=== PATIENT | female | born 1955 | race African-American/Black ===

== ENCOUNTER 2017-05-16 14:48 | Inpatient (IN) | payer MEDICAID, OTHER ==
[~2017-05-16] VITALS: Ht 160 cm; Wt 134.7 kg
[~2017-05-16 14:48] MED LIST: AMLO10TA80 PO; ASPI-1159 PO; COR3 PO; FLUT1DIS3 IH; FURO-151 PO; HEPARIN 1000 UNITS/ML 10ML ONE; HYDR100T31 PO; INSLAN SQ; LIP40 PO; LOSA100T3 PO; LOSA50TA3 PO; METH4TAB17 PO; MONT10TA21 PO; Metolazone PO; PROAIR INH; TRAV2.5D EACHEYE
[2017-05-16] MEDS ORDERED: LABETALOL HCL 20MG/4ML CARPUJECT IV ONE (16:15)
[2017-05-16 16:45] LABS: PROTHROMBIN TIME 10.7 sec (9.4-11.6)
[2017-05-16] MEDS ORDERED: LABETALOL 5MG/ML SYR 20 MG/4 ML SYRINGE IV SCH ×2 (16:45→20:30)
[2017-05-16 16:47] LABS: BASOPHILS % 0.6 % (0.0-2.0); EOSINOPHILS % 1.5 % (0.0-5.0); HEMATOCRIT. 27.5 % (36.0-48.0); HEMOGLOBIN. 8.7 g/dL (12.0-16.0); LYMPHOCYTES % 16.5 % (20.0-50.0); MEAN CORPUSCULAR HEMOGLOBIN 25.5 pg (28.0-32.0); MEAN CORPUSCULAR VOLUME 80.4 fL (81.0-99.0); MEAN PLATELET VOLUME 8.9 fl (7.4-10.4); MONOCYTES % 8.4 % (2.0-8.0); PLATELET 195 x1000/uL (130-400); RED BLOOD CELL COUNT 3.42 mill/uL (4.2-5.4); RED CELL DISTRIBUTION WIDTH 18.5 % (11.6-14.6)
[2017-05-16 16:58] LABS: CARBON DIOXIDE 33 mEq/L (21-32); CHLORIDE 106 mEq/L (98-107); TROPONIN I 0.02 ng/mL (0.00-0.04)
[2017-05-16] MEDS ORDERED: DEXTROSE 50% WATER 50ML SYRINGE IV ONE ×2 (17:15)
[2017-05-16] MEDS ORDERED: DEXT 5%/0.45% NACL KCL 20MEQ/L 1,000 ML IV ONE (19:45)
[2017-05-16] MEDS ORDERED: LABETALOL HCL 20MG/4ML CARPUJECT IV PRN (20:15)
[2017-05-16] MEDS ORDERED: LABETALOL 5MG/ML SYR 20 MG/4 ML SYRINGE IV PRN (20:30)
[2017-05-16 21:30] VITALS: BP 199/77
[2017-05-16 22:26] VITALS: BP 199/77
[2017-05-16] MEDS ORDERED: MAGNESIUM/ALUMINUM HYDROXIDE/SIMETHICONE 30ML UDC PO PRN (23:30)
[2017-05-16] MEDS ORDERED: ACETAMINOPHEN 325MG TABLET PO PRN (23:30)
[2017-05-16] MEDS ORDERED: IPRATROPIUM/ALBUTEROL 0.5-3(2.5)MG/3ML NEB INH PRN (23:30)
[2017-05-16] MEDS ORDERED: ONDANSETRON HCL 4MG/2ML VIAL IV PRN (23:30)
[2017-05-16] MEDS ORDERED: DEXTROSE 50% WATER 50ML SYRINGE IV PRN (23:30)
[2017-05-17] VITALS: BP 213/83
[2017-05-17] MEDS: LOSARTAN POTASSIUM 100 MG TABLET PO SCH ×2 (00:06→09:00)
[2017-05-17] MEDS: AMLODIPINE 10MG TABLET PO SCH ×2 (00:06→09:00)
[2017-05-17] MEDS: DEXT 5%/0.45% NACL 1000ML 1,000 ML IV SCH ×2 (00:41→12:48)
[2017-05-17] MEDS: HYDRALAZINE 20MG/ML VIAL IV PRN (02:20)
[2017-05-17 04:00] VITALS: BP 152/52
[2017-05-17] MEDS: BLOOD SUGAR DIAGNOSTIC STRIP TEST SCH ×6 (04:00→21:37)
[2017-05-17 07:53] LABS: BASOPHILS % 0.8 % (0.0-2.0); EOSINOPHILS % 3.1 % (0.0-5.0); HEMATOCRIT. 23.5 % (36.0-48.0); HEMOGLOBIN. 7.5 g/dL (12.0-16.0); LYMPHOCYTES % 18.8 % (20.0-50.0); MEAN CORPUSCULAR HEMOGLOBIN 25.5 pg (28.0-32.0); MEAN CORPUSCULAR VOLUME 80.4 fL (81.0-99.0); MEAN PLATELET VOLUME 8.2 fl (7.4-10.4); MONOCYTES % 8.5 % (2.0-8.0); NEUTROPHILS % 68.8 % (40.0-76.0); PLATELET 191 x1000/uL (130-400); RED BLOOD CELL COUNT 2.93 mill/uL (4.2-5.4); RED CELL DISTRIBUTION WIDTH 18.4 % (11.6-14.6)
[2017-05-17 08:00] VITALS: BP 144/57
[2017-05-17 08:24] LABS: CREATINE KINASE 33 IU/L (26-192); CREATINE KINASE MB FRACTION < 0.5 ng/mL (0.5-3.6); HDL CHOLESTEROL 64 mg/dL (40-59); LDL CHOLESTEROL 68 mg/dL (5-100); TROPONIN I 0.03 ng/mL (0.00-0.04)
[2017-05-17] MEDS ORDERED: FUROSEMIDE 40MG TABLET PO SCH (09:00)
[2017-05-17] MEDS: MONTELUKAST SODIUM 10MG TABLET PO SCH (09:01)
[2017-05-17] MEDS: ATORVASTATIN CALCIUM 40MG TABLET PO SCH (09:01)
[2017-05-17] MEDS: CARVEDILOL 3.125 MG TABLET PO SCH ×2 (09:01→21:43)
[2017-05-17] MEDS ORDERED: DEXTROSE 50% WATER 50ML SYRINGE IV PRN (11:15)
[2017-05-17 12:00] VITALS: BP 148/62
[2017-05-17] MEDS: INSULIN LISPRO 100 UNITS/ML SUBCUT SCH ×3 (12:15→21:48)
[2017-05-17] MEDS: ENOXAPARIN 40MG/0.4ML SYR SUBCUT SCH ×2 (12:48→21:44)
[2017-05-17] MEDS: MORPHINE SULFATE 2 MG/ML CPJ (NOT FOR IM USE) IV PRN ×2 (12:50→21:52)
[2017-05-17 16:00] VITALS: BP 158/55
[2017-05-17 18:08] LABS: CREATINE KINASE MB FRACTION 0.6 ng/mL (0.5-3.6); TROPONIN I 0.03 ng/mL (0.00-0.04)
[2017-05-17 20:00] VITALS: BP 199/64
[2017-05-17] MEDS: CLONIDINE 0.1MG TABLET PO PRN (21:42)
[2017-05-18] VITALS: BP 137/52
[2017-05-18] MEDS: DEXT 5%/0.45% NACL 1000ML 1,000 ML IV SCH ×2 (02:39→15:19)
[2017-05-18 04:00] VITALS: BP 131/48
[2017-05-18] MEDS: BLOOD SUGAR DIAGNOSTIC STRIP TEST SCH ×4 (06:44→20:46)
[2017-05-18] MEDS: INSULIN LISPRO 100 UNITS/ML SUBCUT SCH ×4 (06:56→20:50)
[2017-05-18 08:00] VITALS: BP 111/46
[2017-05-18] MEDS: ATORVASTATIN CALCIUM 40MG TABLET PO SCH (09:18)
[2017-05-18] MEDS: MONTELUKAST SODIUM 10MG TABLET PO SCH (09:18)
[2017-05-18] MEDS: CARVEDILOL 3.125 MG TABLET PO SCH ×2 (09:19→20:45)
[2017-05-18] MEDS: AMLODIPINE 10MG TABLET PO SCH (09:19)
[2017-05-18] MEDS: LOSARTAN POTASSIUM 100 MG TABLET PO SCH (09:19)
[2017-05-18] MEDS: ENOXAPARIN 40MG/0.4ML SYR SUBCUT SCH ×2 (09:19→20:46)
[2017-05-18] MEDS: MORPHINE SULFATE 2 MG/ML CPJ (NOT FOR IM USE) IV PRN ×3 (09:20→21:40)
[2017-05-18 12:07] VITALS: BP 136/58
[2017-05-18 16:17] VITALS: BP 169/55
[2017-05-18 20:00] VITALS: BP 160/46
[2017-05-19] VITALS (11 sets, daily range): BP systolic 150–191; BP diastolic 37–61
[2017-05-19] MEDS: DEXT 5%/0.45% NACL 1000ML 1,000 ML IV SCH ×2 (04:39→17:13)
[2017-05-19] MEDS: MORPHINE SULFATE 2 MG/ML CPJ (NOT FOR IM USE) IV PRN ×4 (04:46→21:30)
[2017-05-19] MEDS: INSULIN LISPRO 100 UNITS/ML SUBCUT SCH ×4 (06:46→21:26)
[2017-05-19] MEDS: BLOOD SUGAR DIAGNOSTIC STRIP TEST SCH ×4 (06:47→21:17)
[2017-05-19 07:33] LABS: BASOPHILS % 0.6 % (0.0-2.0); EOSINOPHILS % 6.1 % (0.0-5.0); LYMPHOCYTES % 27.3 % (20.0-50.0); MEAN CORPUSCULAR HEMOGLOBIN 25.7 pg (28.0-32.0); MEAN CORPUSCULAR VOLUME 81.3 fL (81.0-99.0); MEAN PLATELET VOLUME 9.1 fl (7.4-10.4); MONOCYTES % 10.3 % (2.0-8.0); NEUTROPHILS % 55.7 % (40.0-76.0); PLATELET 154 x1000/uL (130-400); RED BLOOD CELL COUNT 2.51 mill/uL (4.2-5.4); RED CELL DISTRIBUTION WIDTH 18.1 % (11.6-14.6)
[2017-05-19 08:07] LABS: HEMATOCRIT. 20.4 % (36.0-48.0); HEMOGLOBIN. 6.5 g/dL (12.0-16.0)
[2017-05-19] MEDS: ENOXAPARIN 40MG/0.4ML SYR SUBCUT SCH (09:00)
[2017-05-19] MEDS: ATORVASTATIN CALCIUM 40MG TABLET PO SCH (09:20)
[2017-05-19] MEDS: AMLODIPINE 10MG TABLET PO SCH (09:20)
[2017-05-19] MEDS: LOSARTAN POTASSIUM 100 MG TABLET PO SCH (09:20)
[2017-05-19] MEDS: MONTELUKAST SODIUM 10MG TABLET PO SCH (09:20)
[2017-05-19] MEDS: CARVEDILOL 3.125 MG TABLET PO SCH (09:20)
[2017-05-19] MEDS: CLONIDINE 0.1MG TABLET PO PRN ×2 (15:22→21:35)
[2017-05-19] MEDS: DILTIAZEM HCL 60MG TABLET PO SCH (17:13)
[2017-05-20] VITALS: BP 142/49
[2017-05-20] MEDS: DILTIAZEM HCL 60MG TABLET PO SCH ×2 (00:58→05:31)
[2017-05-20] MEDS: DEXT 5%/0.45% NACL 1000ML 1,000 ML IV SCH ×2 (00:59→20:50)
[2017-05-20 04:00] VITALS: BP_SYST 142; BP_DIAS 45; BP_DIAS 49
[2017-05-20] MEDS: BLOOD SUGAR DIAGNOSTIC STRIP TEST SCH ×4 (06:13→20:45)
[2017-05-20] MEDS: INSULIN LISPRO 100 UNITS/ML SUBCUT SCH ×4 (06:29→20:59)
[2017-05-20] MEDS: MORPHINE SULFATE 2 MG/ML CPJ (NOT FOR IM USE) IV PRN ×3 (06:31→19:41)
[2017-05-20 08:00] VITALS: BP 188/53
[2017-05-20] MEDS: MONTELUKAST SODIUM 10MG TABLET PO SCH (08:28)
[2017-05-20] MEDS: ATORVASTATIN CALCIUM 40MG TABLET PO SCH (08:28)
[2017-05-20] MEDS: LOSARTAN POTASSIUM 100 MG TABLET PO SCH (08:28)
[2017-05-20] MEDS: AMLODIPINE 10MG TABLET PO SCH (08:29)
[2017-05-20 09:16] LABS: BASOPHILS % 1.4 % (0.0-2.0); EOSINOPHILS % 5.1 % (0.0-5.0); HEMATOCRIT. 24.8 % (36.0-48.0); HEMOGLOBIN. 7.9 g/dL (12.0-16.0); LYMPHOCYTES % 24.2 % (20.0-50.0); MEAN CORPUSCULAR HEMOGLOBIN 26.3 pg (28.0-32.0); MEAN CORPUSCULAR VOLUME 83.2 fL (81.0-99.0); MEAN PLATELET VOLUME 9.2 fl (7.4-10.4); MONOCYTES % 8.1 % (2.0-8.0); NEUTROPHILS % 61.2 % (40.0-76.0); PLATELET 158 x1000/uL (130-400); RED BLOOD CELL COUNT 2.98 mill/uL (4.2-5.4); RED CELL DISTRIBUTION WIDTH 17.2 % (11.6-14.6)
[2017-05-20] MEDS: DILTIAZEM HCL 240MG ER (24HR) PO SCH ×2 (11:34→20:50)
[2017-05-20] MEDS: CLONIDINE 0.1MG TABLET PO SCH ×2 (11:35→20:51)
[2017-05-20 12:00] VITALS: BP 168/54
[2017-05-20] MEDS ORDERED: LOSA100T3 PO (14:08)
[2017-05-20] MEDS ORDERED: DILT240C91 PO (14:08)
[2017-05-20] MEDS ORDERED: CLON0.1T14 PO (14:08)
[2017-05-20] MEDS ORDERED: LIP40 PO (14:08)
[2017-05-20] MEDS ORDERED: MONT10TA21 PO (14:08)
[2017-05-20 20:00] VITALS: BP 165/56
[2017-05-21] VITALS (8 sets, daily range): BP systolic 143–177; BP diastolic 50–79
[2017-05-21] MEDS: MORPHINE SULFATE 2 MG/ML CPJ (NOT FOR IM USE) IV PRN ×3 (00:11→09:43)
[2017-05-21] MEDS: BLOOD SUGAR DIAGNOSTIC STRIP TEST SCH ×4 (06:16→21:05)
[2017-05-21] MEDS: INSULIN LISPRO 100 UNITS/ML SUBCUT SCH ×4 (06:37→21:08)
[2017-05-21] MEDS: MONTELUKAST SODIUM 10MG TABLET PO SCH (09:32)
[2017-05-21] MEDS: LOSARTAN POTASSIUM 100 MG TABLET PO SCH (09:32)
[2017-05-21] MEDS: CLONIDINE 0.1MG TABLET PO SCH (09:32)
[2017-05-21] MEDS: ATORVASTATIN CALCIUM 40MG TABLET PO SCH (09:33)
[2017-05-21] MEDS: DILTIAZEM HCL 240MG ER (24HR) PO SCH ×2 (09:33→20:29)
[2017-05-21] MEDS: DEXT 5%/0.45% NACL 1000ML 1,000 ML IV SCH (09:42)
[2017-05-21] MEDS: HYDRALAZINE 20MG/ML VIAL IV PRN (13:42)
[2017-05-21] MEDS: CLONIDINE 0.1MG TABLET PO PRN (15:25)
[2017-05-21] MEDS ORDERED: CLONIDINE 0.2MG TABLET PO SCH (21:00)
[2017-05-22] VITALS: BP 143/51
[2017-05-22 04:00] VITALS: BP 145/56
[2017-05-22 05:30] VITALS: BP 145/56
[2017-05-22] MEDS: BLOOD SUGAR DIAGNOSTIC STRIP TEST SCH (06:00)
[2017-05-22] MEDS: INSULIN LISPRO 100 UNITS/ML SUBCUT SCH (06:08)
[2017-05-22 08:00] VITALS: BP 154/45
== END 2017-05-22 08:45 | disposition home health service (06) | DRG 194 ==
LOC: ER 14:48 → 5WST 18:52 → ENRESERV 19:02 → 5WST 22:38
PROVIDERS: ADMIT Internal Medicine; ATTEND Internal Medicine
PROC: 05H433Z Insertion of Infusion Device into Left Innominate Vein, Percutaneous Approach (ICD-10-PCS; 2017-05-17)
PROC: B54NZZA Ultrasonography of Left Upper Extremity Veins, Guidance (ICD-10-PCS; 2017-05-17)
PROC: 30233N1 Transfusion of Nonautologous Red Blood Cells into Peripheral Vein, Percutaneous Approach (ICD-10-PCS; principal; 2017-05-19)
DX: I13.0 Hypertensive heart and chronic kidney disease with heart failure and stage 1 through stage 4 chronic kidney disease, or unspecified chronic kidney disease (principal); E43 Unspecified severe protein-calorie malnutrition; G93.41 Metabolic encephalopathy; E11.22 Type 2 diabetes mellitus with diabetic chronic kidney disease; I27.2 Other secondary pulmonary hypertension; Z68.43 Body mass index [BMI] 50.0-59.9, adult; E11.40 Type 2 diabetes mellitus with diabetic neuropathy, unspecified; I48.91 Unspecified atrial fibrillation; E11.649 Type 2 diabetes mellitus with hypoglycemia without coma; E66.01 Morbid (severe) obesity due to excess calories; I50.33 Acute on chronic diastolic (congestive) heart failure; L89.90 Pressure ulcer of unspecified site, unspecified stage; N18.3 Chronic kidney disease, stage 3 (moderate); D64.9 Anemia, unspecified; J44.9 Chronic obstructive pulmonary disease, unspecified; I89.0 Lymphedema, not elsewhere classified; I87.2 Venous insufficiency (chronic) (peripheral); G89.29 Other chronic pain; E11.319 Type 2 diabetes mellitus with unspecified diabetic retinopathy without macular edema; I25.10 Atherosclerotic heart disease of native coronary artery without angina pectoris; M13.0 Polyarthritis, unspecified; G47.33 Obstructive sleep apnea (adult) (pediatric); D50.9 Iron deficiency anemia, unspecified; Z79.4 Long term (current) use of insulin; Z90.710 Acquired absence of both cervix and uterus; Z88.0 Allergy status to penicillin; Z79.899 Other long term (current) drug therapy
CPT/HCPCS: 36415; 36569; 51702; 71010; 76937; 77001; 80048; 80053; 80061; 82533; 82550; 82553; 82962; 83735; 83880; 84443; 84484; 85025; 85610; 86850; 86900; 86920; 93005; 93306; 93970; 94664; 96374; 96375; 97167; 97530; 99285; C1725; J0360; J1644; J1650; J1815; J2270; J3490; J7050; P9016; A4315

== ENCOUNTER 2017-06-08 05:06 | Inpatient (IN) | payer OTHER, MEDICAID ==
[~2017-06-08] VITALS: Ht 157.5 cm; Wt 135.2 kg
[~2017-06-08 05:06] MED LIST changes: -AMLO10TA80 PO; +CLON0.1T14 PO; -COR3 PO; +DILT240C91 PO; -FURO-151 PO; -HEPARIN 1000 UNITS/ML 10ML ONE; -HYDR100T31 PO; -LOSA50TA3 PO; -METH4TAB17 PO; -Metolazone PO
[2017-06-08] MEDS ORDERED: METHYLPREDNISOLONE SOD SUCC 125 MG/2 ML VIAL IV STA ×2 (05:09)
[2017-06-08] MEDS ORDERED: IPRATROPIUM BROMIDE (0.02%) 0.5MG/2.5ML NEB HHN STA ×2 (05:09)
[2017-06-08] MEDS ORDERED: ALBUTEROL (0.083%) 2.5MG/3ML NEB HHN STA (05:09)
[2017-06-08] MEDS ORDERED: ASPIRIN 81MG TABLET PO ONE (05:15)
[2017-06-08] MEDS ORDERED: NITROGLYCERIN OINT 1GM/INCH UDPKT TD ONE (05:15)
[2017-06-08] MEDS ORDERED: LEVOFLOXACIN 750MG PREMIX 150 ML IV ONE (05:15)
[2017-06-08] MEDS ORDERED: MAGNESIUM 2 G PREMIX 50 ML IV ONE (05:15)
[2017-06-08] MEDS ORDERED: FUROSEMIDE 40MG/4ML VIAL IV ONE (05:15)
[2017-06-08] MEDS ORDERED: ALBUTEROL (0.083%) 2.5MG/3ML NEB HHN SCH (05:30)
[2017-06-08] MEDS ORDERED: ALBUTEROL (0.5%) 2.5MG/0.5ML NEB HHN ONE (05:32)
[2017-06-08 06:00] LABS: BASOPHILS % 0.5 % (0.0-2.0); EOSINOPHILS % 2.3 % (0.0-5.0); HEMATOCRIT. 27.2 % (36.0-48.0); HEMOGLOBIN. 8.5 g/dL (12.0-16.0); LYMPHOCYTES % 14.9 % (20.0-50.0); MEAN CORPUSCULAR HEMOGLOBIN 25.8 pg (28.0-32.0); MEAN CORPUSCULAR VOLUME 82.6 fL (81.0-99.0); MEAN PLATELET VOLUME 8.6 fl (7.4-10.4); MONOCYTES % 6.9 % (2.0-8.0); NEUTROPHILS % 75.4 % (40.0-76.0); PLATELET 197 x1000/uL (130-400); RED BLOOD CELL COUNT 3.29 mill/uL (4.2-5.4); RED CELL DISTRIBUTION WIDTH 17.7 % (11.6-14.6)
[2017-06-08] MEDS ORDERED: LIDOCAINE HCL 1% 20ML VIAL (Pyxis) INJ MC ONE (06:00)
[2017-06-08 06:07] LABS: BG BASE EXCESS 9.9 mmol/L (-2.0-2.0); BG BILEVEL POS AIRWAY PRESSURE 15/5; BG CARBOXYHEMOGLOBIN 0.5 % (0.5-1.5); BG DEOXYHEMOGLOBIN 3.4 % (0.0-5.0); BG FRACTION INSPIRED OXYGEN 50; BG METHEMOGLOBIN 0.2 % (0.0-1.5); BG OXYGEN SATURATION 96.6 % (92.0-98.5); BG OXYHEMOGLOBIN 95.9 % (94.0-97.0); BG PCO2 77.3 mmHg (35.0-45.0); BG PO2 95.5 mmHg (75.0-100.0); BG SAMPLE SITE RIGHT RADIAL; BG TOTAL HEMOGLOBIN 9.1 g/dL (12.0-18.0); BG VENT MODE MASK - BIPAP
[2017-06-08 06:15] LABS: CARBON DIOXIDE 36 mEq/L (21-32); CHLORIDE 103 mEq/L (98-107); ETHANOL BLOOD < 10 mg/dL; TROPONIN I 0.05 ng/mL (0.00-0.04)
[2017-06-08 06:18] LABS: D-DIMER 5.53 mg/L FEU (<0.50); PROTHROMBIN TIME 10.7 sec (9.4-11.6)
[2017-06-08] MEDS ORDERED: ONDANSETRON HCL 4MG/2ML VIAL IV PRN (07:15)
[2017-06-08] MEDS ORDERED: MAGNESIUM/ALUMINUM HYDROXIDE/SIMETHICONE 30ML UDC PO PRN (07:15)
[2017-06-08] MEDS ORDERED: IPRATROPIUM/ALBUTEROL 0.5-3(2.5)MG/3ML NEB INH PRN (07:15)
[2017-06-08] MEDS ORDERED: GUAIFENESIN 200MG/10ML SUGAR FREE UDC PO PRN (07:15)
[2017-06-08] MEDS ORDERED: ACETAMINOPHEN 325MG TABLET PO PRN (07:15)
[2017-06-08] MEDS ORDERED: LORAZEPAM 2MG/ML CPJ IV PRN (07:15)
[2017-06-08] MEDS ORDERED: DIPHENHYDRAMINE 50MG/ML VIAL IV PRN (07:15)
[2017-06-08 08:43] LABS: CLARITY URINE CLEAR (CLEAR); COLOR URINE YELLOW (YELLOW); GLUCOSE URINE NEGATIVE (NEGATIVE); KETONES URINE NEGATIVE (NEGATIVE); LEUKOCYTE ESTERASE URINE NEGATIVE (NEGATIVE); NITRITE URINE NEGATIVE (NEGATIVE); OCCULT BLOOD URINE NEGATIVE (NEGATIVE); PH URINE 6.5 (4.5-8.0); PROTEIN URINE 4+ (NEGATIVE); SPECIFIC GRAVITY URINE 1.015 (1.005-1.030); UROBILINOGEN URINE 0.2 E.U./dL (0.2-1.0)
[2017-06-08] MEDS ORDERED: DILTIAZEM HCL 240MG ER (24HR) PO SCH (09:00)
[2017-06-08] MEDS: ASPIRIN 81MG EC TABLET PO SCH (09:00)
[2017-06-08 09:02] LABS: *AMPHETAMINES SCREEN URINE NEGATIVE (NEGATIVE); *BARBITURATES SCREEN URINE NEGATIVE (NEGATIVE); *BENZODIAZEPINES SCREEN URINE NEGATIVE (NEGATIVE); *COCAINE SCREEN URINE NEGATIVE (NEGATIVE); CANNABINOID URINE SCREEN NEGATIVE (NEGATIVE); METHADONE URINE SCREEN NEGATIVE (NEGATIVE); OPIATES URINE SCREEN NEGATIVE (NEGATIVE); PHENCYCLIDINE URINE SCREEN NEGATIVE (NEGATIVE)
[2017-06-08] MEDS: CLONIDINE 0.1MG TABLET PO PRN (10:18)
[2017-06-08] MEDS ORDERED: LIDOCAINE HCL/PF 1% 2ML VIAL ONE ×2 (11:38→11:44)
[2017-06-08] MEDS: HYDROCODONE/ACETAMINOPHEN 5/325MG TABLET PO PRN ×3 (11:45→18:32)
[2017-06-08 14:19] LABS: BG BASE EXCESS 10.4 mmol/L (-2.0-2.0); BG CARBOXYHEMOGLOBIN 0.3 % (0.5-1.5); BG DEOXYHEMOGLOBIN 3.8 % (0.0-5.0); BG FRACTION INSPIRED OXYGEN 32; BG HCO3 ACT 36.8 mmol/L (22.0-26.0); BG METHEMOGLOBIN 0.3 % (0.0-1.5); BG OXYGEN SATURATION 96.2 % (92.0-98.5); BG OXYHEMOGLOBIN 95.6 % (94.0-97.0); BG PCO2 62.7 mmHg (35.0-45.0); BG PH 7.387 (7.350-7.450); BG PO2 83.8 mmHg (75.0-100.0); BG SAMPLE SITE RIGHT RADIAL; BG TOTAL HEMOGLOBIN 8.7 g/dL (12.0-18.0); BG VENT MODE NASAL CANNULA
[2017-06-08 16:00] VITALS: BP 125/66
[2017-06-08] MEDS ORDERED: METHYLPREDNISOLONE SOD SUCC 40 MG/ML VIAL IV SCH (17:30)
[2017-06-08 18:30] VITALS: BP 125/69
[2017-06-08] MEDS: LOSARTAN POTASSIUM 100 MG TABLET PO SCH (18:32)
[2017-06-08 20:00] VITALS: BP 106/68
[2017-06-08] MEDS: IPRATROPIUM/ALBUTEROL 0.5-3(2.5)MG/3ML NEB HHN SCH (20:39)
[2017-06-08] MEDS: BUDESONIDE 0.5MG/2ML NEB HHN SCH (20:40)
[2017-06-08] MEDS ORDERED: INFLUENZA VIRUS VACCINE 0.5ML SYR IM ONE (21:00)
[2017-06-08] MEDS: CLONIDINE 0.1MG TABLET PO SCH (21:48)
[2017-06-08] MEDS: SODIUM CHLORIDE 0.9% INJ 3ML FLUSH IVF SCH (21:50)
[2017-06-08] MEDS: MONTELUKAST SODIUM 10MG TABLET PO SCH (21:52)
[2017-06-08] MEDS: DILTIAZEM HCL 240MG ER (24HR) PO SCH (21:52)
[2017-06-08] MEDS: OMEPRAZOLE 20MG CAPSULE EXTENDED RELEASE PO SCH (21:52)
[2017-06-08] MEDS: ATORVASTATIN CALCIUM 40MG TABLET PO SCH (21:52)
[2017-06-08] MEDS: ENOXAPARIN 40MG/0.4ML SYR SUBCUT SCH (21:54)
[2017-06-08] MEDS ORDERED: MORPHINE SULFATE 4 MG/ML CPJ (NOT FOR IM USE) IV NR (23:00)
[2017-06-08] MEDS ORDERED: TEMAZEPAM 15MG CAPSULE PO PRN (23:00)
[2017-06-08] MEDS ORDERED: DEXTROSE 50% WATER 50ML SYRINGE IV PRN (23:15)
[2017-06-08] MEDS: LATANOPROST 0.005% OPHTH DROPS 2.5ML OP SCH (23:24)
[2017-06-09] VITALS: BP 178/55
[2017-06-09] MEDS: IPRATROPIUM/ALBUTEROL 0.5-3(2.5)MG/3ML NEB HHN SCH ×7 (00:30→23:50)
[2017-06-09] MEDS ORDERED: INSULIN DETEMIR UD 100 UNITS/ML SYR SUBCUT NR (01:00)
[2017-06-09] MEDS: CLONIDINE 0.1MG TABLET PO PRN ×2 (01:09→12:19)
[2017-06-09 04:00] VITALS: BP 145/59
[2017-06-09] MEDS: OMEPRAZOLE 20MG CAPSULE EXTENDED RELEASE PO SCH (06:47)
[2017-06-09] MEDS: SODIUM CHLORIDE 0.9% INJ 3ML FLUSH IVF SCH ×3 (06:52→20:26)
[2017-06-09] MEDS: BLOOD SUGAR DIAGNOSTIC STRIP TEST SCH ×4 (06:52→21:48)
[2017-06-09] MEDS ORDERED: LEVOFLOXACIN 750MG PREMIX 150 ML IV SCH (07:00)
[2017-06-09] MEDS: INSULIN LISPRO 100 UNITS/ML SUBCUT SCH ×4 (07:00→22:06)
[2017-06-09 08:00] VITALS: BP 168/56
[2017-06-09] MEDS: CLONIDINE 0.1MG TABLET PO SCH ×2 (08:35→20:24)
[2017-06-09] MEDS: ENOXAPARIN 40MG/0.4ML SYR SUBCUT SCH ×2 (08:35→20:25)
[2017-06-09] MEDS: DILTIAZEM HCL 240MG ER (24HR) PO SCH (08:35)
[2017-06-09] MEDS: PREDNISONE 20MG TABLET PO SCH (08:36)
[2017-06-09] MEDS: ASPIRIN 81MG EC TABLET PO SCH (08:36)
[2017-06-09] MEDS: LOSARTAN POTASSIUM 100 MG TABLET PO SCH (08:36)
[2017-06-09] MEDS ORDERED: FUROSEMIDE 40MG/4ML VIAL IVP SCH ×2 (09:00→17:00)
[2017-06-09] MEDS ORDERED: TRAVOPROST EACHEYE SCH (09:00)
[2017-06-09] MEDS: BUDESONIDE 0.5MG/2ML NEB HHN SCH ×2 (09:15→20:05)
[2017-06-09 12:00] VITALS: BP 172/58
[2017-06-09] MEDS: MORPHINE SULFATE 4 MG/ML CPJ (NOT FOR IM USE) IV PRN (12:19)
[2017-06-09] MEDS: ISOSORB DINIT/HYDRALAZINE HCL 20/37.5MG TABLET PO SCH ×2 (15:19→20:24)
[2017-06-09 15:56] LABS: CARBON DIOXIDE 34 mEq/L (21-32); CHLORIDE 97 mEq/L (98-107); CREATINE KINASE 66 IU/L (26-192); TROPONIN I 0.09 ng/mL (0.00-0.04)
[2017-06-09 16:00] VITALS: BP 182/60
[2017-06-09 16:11] LABS: BASOPHILS % 0.3 % (0.0-2.0); HEMATOCRIT. 22.8 % (36.0-48.0); HEMOGLOBIN. 7.1 g/dL (12.0-16.0); LYMPHOCYTES % 7.1 % (20.0-50.0); MEAN CORPUSCULAR HEMOGLOBIN 25.3 pg (28.0-32.0); MEAN CORPUSCULAR VOLUME 81.5 fL (81.0-99.0); MEAN PLATELET VOLUME 9.1 fl (7.4-10.4); MONOCYTES % 5.5 % (2.0-8.0); NEUTROPHILS % 87.1 % (40.0-76.0); PLATELET 191 x1000/uL (130-400); RED CELL DISTRIBUTION WIDTH 17.7 % (11.6-14.6)
[2017-06-09 20:00] VITALS: BP 185/62
[2017-06-09] MEDS: ATORVASTATIN CALCIUM 40MG TABLET PO SCH (20:24)
[2017-06-09] MEDS: MONTELUKAST SODIUM 10MG TABLET PO SCH (20:24)
[2017-06-09] MEDS: LATANOPROST 0.005% OPHTH DROPS 2.5ML OP SCH (20:25)
[2017-06-09] MEDS: INSULIN DETEMIR UD 100 UNITS/ML SYR SUBCUT SCH (22:04)
[2017-06-10] VITALS (10 sets, daily range): BP systolic 145–175; BP diastolic 50–85
[2017-06-10] MEDS: MORPHINE SULFATE 4 MG/ML CPJ (NOT FOR IM USE) IV PRN ×4 (00:02→20:03)
[2017-06-10] MEDS: IPRATROPIUM/ALBUTEROL 0.5-3(2.5)MG/3ML NEB HHN SCH ×5 (03:44→20:35)
[2017-06-10] MEDS ORDERED: LEVOFLOXACIN 750MG PREMIX 150 ML IV SCH (06:00)
[2017-06-10] MEDS: BLOOD SUGAR DIAGNOSTIC STRIP TEST SCH ×4 (06:25→21:32)
[2017-06-10] MEDS: CLONIDINE 0.1MG TABLET PO PRN ×2 (06:26→17:50)
[2017-06-10] MEDS: FAMOTIDINE 20MG TABLET PO SCH ×2 (06:27→16:49)
[2017-06-10] MEDS: SODIUM CHLORIDE 0.9% INJ 3ML FLUSH IVF SCH ×3 (06:27→21:40)
[2017-06-10] MEDS: ISOSORB DINIT/HYDRALAZINE HCL 20/37.5MG TABLET PO SCH ×3 (06:27→21:31)
[2017-06-10 06:48] LABS: BASOPHILS % 0.2 % (0.0-2.0); EOSINOPHILS % 0.2 % (0.0-5.0); LYMPHOCYTES % 11.2 % (20.0-50.0); MEAN CORPUSCULAR VOLUME 81.4 fL (81.0-99.0); MEAN PLATELET VOLUME 9.3 fl (7.4-10.4); NEUTROPHILS % 79.4 % (40.0-76.0); PLATELET 187 x1000/uL (130-400); RED BLOOD CELL COUNT 2.39 mill/uL (4.2-5.4); RED CELL DISTRIBUTION WIDTH 17.6 % (11.6-14.6)
[2017-06-10] MEDS: INSULIN LISPRO 100 UNITS/ML SUBCUT SCH ×4 (06:56→21:41)
[2017-06-10 07:01] LABS: HEMOGLOBIN. 6.2 g/dL (12.0-16.0)
[2017-06-10 07:02] LABS: HEMATOCRIT. 19.5 % (36.0-48.0)
[2017-06-10] MEDS ORDERED: FUROSEMIDE 40MG/4ML VIAL IVP SCH (07:45)
[2017-06-10] MEDS: ASPIRIN 81MG EC TABLET PO SCH (08:30)
[2017-06-10] MEDS: ENOXAPARIN 40MG/0.4ML SYR SUBCUT SCH ×3 (08:31→21:32)
[2017-06-10] MEDS: BUDESONIDE 0.5MG/2ML NEB HHN SCH ×2 (08:41→20:35)
[2017-06-10] MEDS: DILTIAZEM HCL 240MG ER (24HR) PO SCH (08:47)
[2017-06-10] MEDS: LOSARTAN POTASSIUM 100 MG TABLET PO SCH (08:47)
[2017-06-10] MEDS: PREDNISONE 20MG TABLET PO SCH (08:48)
[2017-06-10] MEDS: CLONIDINE 0.1MG TABLET PO SCH (08:48)
[2017-06-10] MEDS: CLONIDINE 0.2MG TABLET PO SCH ×2 (14:42→16:48)
[2017-06-10 20:14] LABS: INR 1.1; PROTHROMBIN TIME 11.2 sec (9.4-11.6)
[2017-06-10 20:23] LABS: HAPTOGLOBIN 281 mg/dL (30-200); TOTAL IRON BINDING CAPACITY 168 ug/dL (250-450)
[2017-06-10 20:28] LABS: HEMATOCRIT 24.1 % (36.0-48.0); HEMOGLOBIN 7.6 g/dL (12.0-16.0)
[2017-06-10 20:32] LABS: CARCINO EMBRYONIC ANTIGEN 0.8 ng/ml
[2017-06-10] MEDS: LATANOPROST 0.005% OPHTH DROPS 2.5ML OP SCH (21:31)
[2017-06-10] MEDS: ATORVASTATIN CALCIUM 40MG TABLET PO SCH (21:31)
[2017-06-10] MEDS: MONTELUKAST SODIUM 10MG TABLET PO SCH (21:31)
[2017-06-10] MEDS: ASCORBIC ACID 250 MG TABLET PO SCH (21:31)
[2017-06-10] MEDS: INSULIN DETEMIR UD 100 UNITS/ML SYR SUBCUT SCH (21:44)
[2017-06-11] VITALS (9 sets, daily range): BP systolic 110–189; BP diastolic 50–72
[2017-06-11] MEDS: IPRATROPIUM/ALBUTEROL 0.5-3(2.5)MG/3ML NEB HHN SCH ×4 (03:21→20:15)
[2017-06-11] MEDS: METHYLPREDNISOLONE SOD SUCC 125 MG/2 ML VIAL IV SCH ×3 (05:03→21:42)
[2017-06-11] MEDS: MORPHINE SULFATE 4 MG/ML CPJ (NOT FOR IM USE) IV PRN ×3 (05:04→17:28)
[2017-06-11] MEDS: ISOSORB DINIT/HYDRALAZINE HCL 20/37.5MG TABLET PO SCH ×3 (05:04→21:42)
[2017-06-11] MEDS: SODIUM CHLORIDE 0.9% INJ 3ML FLUSH IVF SCH ×3 (05:05→21:43)
[2017-06-11] MEDS: BLOOD SUGAR DIAGNOSTIC STRIP TEST SCH ×4 (06:47→21:43)
[2017-06-11 06:50] LABS: BASOPHILS % 0.3 % (0.0-2.0); EOSINOPHILS % 0.7 % (0.0-5.0); HEMATOCRIT. 22.2 % (36.0-48.0); HEMOGLOBIN. 7.3 g/dL (12.0-16.0); LYMPHOCYTES % 15.5 % (20.0-50.0); MEAN CORPUSCULAR HEMOGLOBIN 26.1 pg (28.0-32.0); MEAN CORPUSCULAR VOLUME 80.1 fL (81.0-99.0); MEAN PLATELET VOLUME 9.2 fl (7.4-10.4); MONOCYTES % 8.9 % (2.0-8.0); NEUTROPHILS % 74.6 % (40.0-76.0); PLATELET 182 x1000/uL (130-400); RED BLOOD CELL COUNT 2.77 mill/uL (4.2-5.4); RED CELL DISTRIBUTION WIDTH 16.6 % (11.6-14.6)
[2017-06-11] MEDS: INSULIN LISPRO 100 UNITS/ML SUBCUT SCH ×4 (06:55→22:02)
[2017-06-11] MEDS: BUDESONIDE 0.5MG/2ML NEB HHN SCH ×2 (07:39→20:16)
[2017-06-11] MEDS ORDERED: FAMOTIDINE 20MG TABLET PO SCH (09:00)
[2017-06-11] MEDS: CLONIDINE 0.2MG TABLET PO SCH ×3 (09:16→17:28)
[2017-06-11] MEDS: PANTOPRAZOLE SODIUM 40 MG/VIAL IV SCH (09:17)
[2017-06-11] MEDS: DILTIAZEM HCL 240MG ER (24HR) PO SCH (09:17)
[2017-06-11] MEDS: ENOXAPARIN 40MG/0.4ML SYR SUBCUT SCH ×2 (09:18→21:00)
[2017-06-11] MEDS: ASCORBIC ACID 250 MG TABLET PO SCH ×2 (09:18→21:41)
[2017-06-11] MEDS: MULTIVITAMINS,THER W-MINERALS TABLET PO SCH (09:18)
[2017-06-11] MEDS: ASPIRIN 81MG EC TABLET PO SCH (09:18)
[2017-06-11] MEDS: ZINC SULFATE 220 MG ( 50 ) CAPSULE PO SCH (09:18)
[2017-06-11] MEDS: INSULIN DETEMIR UD 100 UNITS/ML SYR SUBCUT SCH (10:45)
[2017-06-11] MEDS: LEVOFLOXACIN 750MG PREMIX 150 ML IV SCH (10:47)
[2017-06-11] MEDS: CLONIDINE 0.1MG TABLET PO PRN (15:58)
[2017-06-11] MEDS ORDERED: HYDRALAZINE 20MG/ML VIAL IV SCH (18:30)
[2017-06-11 20:09] LABS: HEMATOCRIT 31.2 % (36.0-48.0)
[2017-06-11] MEDS: MONTELUKAST SODIUM 10MG TABLET PO SCH (21:41)
[2017-06-11] MEDS: ATORVASTATIN CALCIUM 40MG TABLET PO SCH (21:41)
[2017-06-11] MEDS: LATANOPROST 0.005% OPHTH DROPS 2.5ML EACHEYE SCH (21:45)
[2017-06-12] VITALS (9 sets, daily range): BP systolic 146–210; BP diastolic 59–96
[2017-06-12] MEDS: IPRATROPIUM/ALBUTEROL 0.5-3(2.5)MG/3ML NEB HHN SCH ×4 (00:20→21:47)
[2017-06-12] MEDS: CLONIDINE 0.1MG TABLET PO PRN ×2 (03:35→23:40)
[2017-06-12] MEDS: METHYLPREDNISOLONE SOD SUCC 125 MG/2 ML VIAL IV SCH ×3 (05:41→22:11)
[2017-06-12] MEDS: SODIUM CHLORIDE 0.9% INJ 3ML FLUSH IVF SCH ×3 (05:41→22:11)
[2017-06-12] MEDS: MORPHINE SULFATE 4 MG/ML CPJ (NOT FOR IM USE) IV PRN ×3 (05:42→20:08)
[2017-06-12] MEDS: ISOSORB DINIT/HYDRALAZINE HCL 20/37.5MG TABLET PO SCH ×3 (05:42→22:13)
[2017-06-12] MEDS: BLOOD SUGAR DIAGNOSTIC STRIP TEST SCH ×4 (05:52→20:26)
[2017-06-12] MEDS: INSULIN LISPRO 100 UNITS/ML SUBCUT SCH ×4 (06:29→20:24)
[2017-06-12] MEDS: BUDESONIDE 0.5MG/2ML NEB HHN SCH ×2 (07:43→21:47)
[2017-06-12] MEDS: MULTIVITAMINS,THER W-MINERALS TABLET PO SCH (08:11)
[2017-06-12] MEDS: ZINC SULFATE 220 MG ( 50 ) CAPSULE PO SCH (08:11)
[2017-06-12] MEDS: DILTIAZEM HCL 240MG ER (24HR) PO SCH (08:12)
[2017-06-12] MEDS: ASPIRIN 81MG EC TABLET PO SCH (08:12)
[2017-06-12] MEDS: CLONIDINE 0.2MG TABLET PO SCH ×2 (08:12→12:22)
[2017-06-12] MEDS: ASCORBIC ACID 250 MG TABLET PO SCH ×2 (08:13→20:07)
[2017-06-12] MEDS: ENOXAPARIN 40MG/0.4ML SYR SUBCUT SCH ×2 (08:20→20:39)
[2017-06-12] MEDS: PANTOPRAZOLE SODIUM 40 MG/VIAL IV SCH (08:26)
[2017-06-12] MEDS ORDERED: NITROGLYCERIN OINT 1GM/INCH UDPKT TD SCH (08:30)
[2017-06-12] MEDS ORDERED: HYDRALAZINE 20MG/ML VIAL IV PRN (08:30)
[2017-06-12] MEDS: INSULIN DETEMIR UD 100 UNITS/ML SYR SUBCUT SCH (10:16)
[2017-06-12] MEDS ORDERED: AMLODIPINE 2.5MG TABLET PO SCH (13:00)
[2017-06-12] MEDS ORDERED: HYDRALAZINE HCL 25MG TABLET PO SCH (14:00)
[2017-06-12] MEDS: CLONIDINE 0.3MG TABLET PO SCH ×2 (14:52→22:12)
[2017-06-12] MEDS: ATORVASTATIN CALCIUM 40MG TABLET PO SCH (20:07)
[2017-06-12] MEDS: MONTELUKAST SODIUM 10MG TABLET PO SCH (20:07)
[2017-06-12] MEDS: CARVEDILOL 6.25 MG TABLET PO SCH (20:08)
[2017-06-12] MEDS: LATANOPROST 0.005% OPHTH DROPS 2.5ML EACHEYE SCH (20:25)
[2017-06-13] VITALS: BP 161/61
[2017-06-13] MEDS: IPRATROPIUM/ALBUTEROL 0.5-3(2.5)MG/3ML NEB HHN SCH ×5 (01:10→20:15)
[2017-06-13] MEDS: MORPHINE SULFATE 4 MG/ML CPJ (NOT FOR IM USE) IV PRN ×3 (02:48→16:55)
[2017-06-13 04:00] VITALS: BP 177/63
[2017-06-13] MEDS: METHYLPREDNISOLONE SOD SUCC 125 MG/2 ML VIAL IV SCH ×3 (05:33→20:41)
[2017-06-13] MEDS: SODIUM CHLORIDE 0.9% INJ 3ML FLUSH IVF SCH ×3 (05:33→20:41)
[2017-06-13] MEDS: CLONIDINE 0.3MG TABLET PO SCH ×3 (05:34→22:00)
[2017-06-13] MEDS: ISOSORB DINIT/HYDRALAZINE HCL 20/37.5MG TABLET PO SCH ×3 (05:34→22:00)
[2017-06-13] MEDS: BLOOD SUGAR DIAGNOSTIC STRIP TEST SCH ×4 (06:12→20:26)
[2017-06-13 06:16] LABS: HEMATOCRIT. 28.2 % (36.0-48.0); HEMOGLOBIN. 9.1 g/dL (12.0-16.0); MEAN CORPUSCULAR HEMOGLOBIN 25.8 pg (28.0-32.0); MEAN CORPUSCULAR VOLUME 80.3 fL (81.0-99.0); MEAN PLATELET VOLUME 9.4 fl (7.4-10.4); PLATELET 179 x1000/uL (130-400); RED BLOOD CELL COUNT 3.51 mill/uL (4.2-5.4); RED CELL DISTRIBUTION WIDTH 16.9 % (11.6-14.6)
[2017-06-13] MEDS: INSULIN LISPRO 100 UNITS/ML SUBCUT SCH ×4 (06:18→20:54)
[2017-06-13 08:00] VITALS: BP 187/66
[2017-06-13] MEDS: INSULIN DETEMIR UD 100 UNITS/ML SYR SUBCUT SCH (10:17)
[2017-06-13] MEDS: CARVEDILOL 6.25 MG TABLET PO SCH (10:21)
[2017-06-13] MEDS: ZINC SULFATE 220 MG ( 50 ) CAPSULE PO SCH (10:21)
[2017-06-13] MEDS: ASPIRIN 81MG EC TABLET PO SCH (10:21)
[2017-06-13] MEDS: DILTIAZEM HCL 240MG ER (24HR) PO SCH (10:21)
[2017-06-13] MEDS: LEVOFLOXACIN 750MG PREMIX 150 ML IV SCH (10:21)
[2017-06-13] MEDS: MULTIVITAMINS,THER W-MINERALS TABLET PO SCH (10:21)
[2017-06-13] MEDS: FAMOTIDINE 20MG/2ML VIAL IV SCH (10:21)
[2017-06-13] MEDS: ASCORBIC ACID 250 MG TABLET PO SCH ×2 (10:22→20:40)
[2017-06-13] MEDS: ENOXAPARIN 40MG/0.4ML SYR SUBCUT SCH ×2 (10:22→20:41)
[2017-06-13] MEDS ORDERED: AMLODIPINE 2.5MG TABLET PO SCH (11:00)
[2017-06-13 12:00] VITALS: BP 170/60
[2017-06-13 13:18] LABS: PLATELET ESTIMATE NORMAL
[2017-06-13] MEDS: NIFEDIPINE XL 60MG TAB PO SCH ×2 (13:50→20:40)
[2017-06-13 16:00] VITALS: BP 152/60
[2017-06-13 19:15] LABS: CLARITY URINE CLOUDY (CLEAR); COLOR URINE YELLOW (YELLOW); GLUCOSE URINE 1+ (NEGATIVE); KETONES URINE NEGATIVE (NEGATIVE); LEUKOCYTE ESTERASE URINE NEGATIVE (NEGATIVE); NITRITE URINE NEGATIVE (NEGATIVE); OCCULT BLOOD URINE NEGATIVE (NEGATIVE); PROTEIN URINE 3+ (NEGATIVE); SPECIFIC GRAVITY URINE 1.018 (1.005-1.030); UROBILINOGEN URINE 0.2 E.U./dL (0.2-1.0)
[2017-06-13 20:00] VITALS: BP 164/59
[2017-06-13] MEDS: CARVEDILOL 12.5MG TABLET PO SCH (20:39)
[2017-06-13] MEDS: ATORVASTATIN CALCIUM 40MG TABLET PO SCH (20:39)
[2017-06-13] MEDS: MONTELUKAST SODIUM 10MG TABLET PO SCH (20:40)
[2017-06-13] MEDS: LATANOPROST 0.005% OPHTH DROPS 2.5ML EACHEYE SCH (21:11)
[2017-06-14] VITALS: BP 176/61
[2017-06-14] MEDS: CLONIDINE 0.1MG TABLET PO PRN (00:27)
[2017-06-14] MEDS: MORPHINE SULFATE 4 MG/ML CPJ (NOT FOR IM USE) IV PRN ×2 (00:28→21:57)
[2017-06-14] MEDS: IPRATROPIUM/ALBUTEROL 0.5-3(2.5)MG/3ML NEB HHN SCH ×4 (01:30→21:01)
[2017-06-14 04:00] VITALS: BP 148/57
[2017-06-14] MEDS ORDERED: METHYLPREDNISOLONE SOD SUCC 125 MG/2 ML VIAL IV SCH (06:00)
[2017-06-14 06:19] LABS: HEMATOCRIT. 31.8 % (36.0-48.0); HEMOGLOBIN. 10.3 g/dL (12.0-16.0); MEAN CORPUSCULAR HEMOGLOBIN 26.1 pg (28.0-32.0); MEAN CORPUSCULAR VOLUME 80.6 fL (81.0-99.0); MEAN PLATELET VOLUME 9.9 fl (7.4-10.4); PLATELET 189 x1000/uL (130-400); RED BLOOD CELL COUNT 3.94 mill/uL (4.2-5.4); RED CELL DISTRIBUTION WIDTH 16.8 % (11.6-14.6)
[2017-06-14] MEDS: BLOOD SUGAR DIAGNOSTIC STRIP TEST SCH ×4 (06:35→21:00)
[2017-06-14] MEDS: CLONIDINE 0.3MG TABLET PO SCH ×3 (06:44→23:21)
[2017-06-14] MEDS: ISOSORB DINIT/HYDRALAZINE HCL 20/37.5MG TABLET PO SCH ×3 (06:44→23:21)
[2017-06-14] MEDS: INSULIN LISPRO 100 UNITS/ML SUBCUT SCH ×4 (06:51→22:09)
[2017-06-14] MEDS: SODIUM CHLORIDE 0.9% INJ 3ML FLUSH IVF SCH ×3 (06:56→23:21)
[2017-06-14 08:00] VITALS: BP 117/55
[2017-06-14] MEDS: NIFEDIPINE XL 60MG TAB PO SCH ×2 (09:00→21:55)
[2017-06-14] MEDS: CARVEDILOL 12.5MG TABLET PO SCH ×2 (09:00→21:55)
[2017-06-14] MEDS: DILTIAZEM HCL 240MG ER (24HR) PO SCH (09:00)
[2017-06-14] MEDS: ZINC SULFATE 220 MG ( 50 ) CAPSULE PO SCH (09:02)
[2017-06-14] MEDS: ASPIRIN 81MG EC TABLET PO SCH (09:02)
[2017-06-14] MEDS: FAMOTIDINE 20MG/2ML VIAL IV SCH (09:02)
[2017-06-14] MEDS: ASCORBIC ACID 250 MG TABLET PO SCH ×2 (09:02→21:54)
[2017-06-14] MEDS: MULTIVITAMINS,THER W-MINERALS TABLET PO SCH (09:03)
[2017-06-14] MEDS: ENOXAPARIN 40MG/0.4ML SYR SUBCUT SCH (09:03)
[2017-06-14] MEDS: INSULIN DETEMIR UD 100 UNITS/ML SYR SUBCUT SCH (10:28)
[2017-06-14 12:00] VITALS: BP 139/48
[2017-06-14 12:59] LABS: PLATELET ESTIMATE NORMAL
[2017-06-14 16:00] VITALS: BP 140/48
[2017-06-14 20:44] VITALS: BP 159/56
[2017-06-14] MEDS: MONTELUKAST SODIUM 10MG TABLET PO SCH (21:54)
[2017-06-14] MEDS: ATORVASTATIN CALCIUM 40MG TABLET PO SCH (21:55)
[2017-06-14] MEDS: ENOXAPARIN 30MG/0.3ML SYR SUBCUT SCH (21:56)
[2017-06-14] MEDS: LATANOPROST 0.005% OPHTH DROPS 2.5ML EACHEYE SCH (23:21)
[2017-06-15 00:49] VITALS: BP 144/59
[2017-06-15] MEDS: IPRATROPIUM/ALBUTEROL 0.5-3(2.5)MG/3ML NEB HHN SCH ×5 (00:56→20:15)
[2017-06-15 04:00] VITALS: BP 189/69
[2017-06-15] MEDS: INSULIN LISPRO 100 UNITS/ML SUBCUT SCH ×4 (05:38→21:28)
[2017-06-15] MEDS: BLOOD SUGAR DIAGNOSTIC STRIP TEST SCH ×4 (05:38→21:00)
[2017-06-15] MEDS: CLONIDINE 0.3MG TABLET PO SCH ×3 (05:50→21:23)
[2017-06-15] MEDS: SODIUM CHLORIDE 0.9% INJ 3ML FLUSH IVF SCH ×3 (05:52→21:24)
[2017-06-15] MEDS: METHYLPREDNISOLONE SOD SUCC 40 MG/ML VIAL IV SCH (05:52)
[2017-06-15 06:11] LABS: HEMATOCRIT. 32.6 % (36.0-48.0); HEMOGLOBIN. 10.6 g/dL (12.0-16.0); MEAN CORPUSCULAR VOLUME 79.8 fL (81.0-99.0); MEAN PLATELET VOLUME 10.2 fl (7.4-10.4); PLATELET 208 x1000/uL (130-400); RED BLOOD CELL COUNT 4.09 mill/uL (4.2-5.4)
[2017-06-15] MEDS: ISOSORB DINIT/HYDRALAZINE HCL 20/37.5MG TABLET PO SCH ×3 (07:07→21:23)
[2017-06-15] MEDS: MORPHINE SULFATE 4 MG/ML CPJ (NOT FOR IM USE) IV PRN ×2 (07:08→21:30)
[2017-06-15 08:00] VITALS: BP 182/69
[2017-06-15] MEDS: ZINC SULFATE 220 MG ( 50 ) CAPSULE PO SCH (08:49)
[2017-06-15] MEDS: FAMOTIDINE 20MG/2ML VIAL IV SCH (08:49)
[2017-06-15] MEDS: ASCORBIC ACID 250 MG TABLET PO SCH ×2 (08:49→21:23)
[2017-06-15] MEDS: ASPIRIN 81MG EC TABLET PO SCH (08:49)
[2017-06-15] MEDS: MULTIVITAMINS,THER W-MINERALS TABLET PO SCH (08:49)
[2017-06-15] MEDS: NIFEDIPINE XL 60MG TAB PO SCH ×2 (08:50→20:19)
[2017-06-15] MEDS: CARVEDILOL 12.5MG TABLET PO SCH ×2 (08:50→20:18)
[2017-06-15] MEDS: ENOXAPARIN 30MG/0.3ML SYR SUBCUT SCH ×2 (08:51→21:24)
[2017-06-15] MEDS: DILTIAZEM HCL 240MG ER (24HR) PO SCH (08:56)
[2017-06-15] MEDS: INSULIN DETEMIR UD 100 UNITS/ML SYR SUBCUT SCH (10:40)
[2017-06-15 10:46] LABS: NUCLEATED RED BLOOD CELLS 1 /100 WBC; PLATELET ESTIMATE NORMAL
[2017-06-15 12:00] VITALS: BP 129/46
[2017-06-15] MEDS: FUROSEMIDE 40MG TABLET PO SCH (14:06)
[2017-06-15 16:00] VITALS: BP 128/43
[2017-06-15 20:00] VITALS: BP 119/44
[2017-06-15] MEDS: MONTELUKAST SODIUM 10MG TABLET PO SCH (21:23)
[2017-06-15] MEDS: ATORVASTATIN CALCIUM 40MG TABLET PO SCH (21:23)
[2017-06-15] MEDS: LATANOPROST 0.005% OPHTH DROPS 2.5ML EACHEYE SCH (21:29)
[2017-06-16] VITALS (7 sets, daily range): BP systolic 118–154; BP diastolic 48–54
[2017-06-16] MEDS: METHYLPREDNISOLONE SOD SUCC 40 MG/ML VIAL IV SCH (05:43)
[2017-06-16] MEDS: CLONIDINE 0.3MG TABLET PO SCH ×3 (05:43→22:13)
[2017-06-16] MEDS: BLOOD SUGAR DIAGNOSTIC STRIP TEST SCH ×3 (05:44→21:56)
[2017-06-16] MEDS: INSULIN LISPRO 100 UNITS/ML SUBCUT SCH ×3 (05:44→17:47)
[2017-06-16] MEDS: SODIUM CHLORIDE 0.9% INJ 3ML FLUSH IVF SCH ×3 (05:44→22:14)
[2017-06-16] MEDS: ISOSORB DINIT/HYDRALAZINE HCL 20/37.5MG TABLET PO SCH ×3 (05:44→22:14)
[2017-06-16] MEDS: FAMOTIDINE 20MG/2ML VIAL IV SCH (08:25)
[2017-06-16] MEDS: MULTIVITAMINS,THER W-MINERALS TABLET PO SCH (08:26)
[2017-06-16] MEDS: NIFEDIPINE XL 60MG TAB PO SCH ×2 (08:26→22:13)
[2017-06-16] MEDS: FUROSEMIDE 40MG TABLET PO SCH (08:27)
[2017-06-16] MEDS: ZINC SULFATE 220 MG ( 50 ) CAPSULE PO SCH (08:27)
[2017-06-16] MEDS: DILTIAZEM HCL 240MG ER (24HR) PO SCH (08:27)
[2017-06-16] MEDS: ASCORBIC ACID 250 MG TABLET PO SCH ×2 (08:27→22:12)
[2017-06-16] MEDS: ASPIRIN 81MG EC TABLET PO SCH (08:27)
[2017-06-16] MEDS: ENOXAPARIN 30MG/0.3ML SYR SUBCUT SCH ×2 (08:28→22:14)
[2017-06-16] MEDS: CARVEDILOL 12.5MG TABLET PO SCH ×2 (08:28→22:14)
[2017-06-16] MEDS: MORPHINE SULFATE 4 MG/ML CPJ (NOT FOR IM USE) IV PRN ×2 (08:35→13:38)
[2017-06-16] MEDS: IPRATROPIUM/ALBUTEROL 0.5-3(2.5)MG/3ML NEB HHN SCH ×3 (08:41→22:02)
[2017-06-16] MEDS: INSULIN DETEMIR UD 100 UNITS/ML SYR SUBCUT SCH (09:41)
[2017-06-16] MEDS ORDERED: HYDROCODONE/ACETAMINOPHEN 5/325MG TABLET PO PRN (19:15)
[2017-06-16] MEDS: MONTELUKAST SODIUM 10MG TABLET PO SCH (22:13)
[2017-06-16] MEDS: ATORVASTATIN CALCIUM 40MG TABLET PO SCH (22:14)
[2017-06-16] MEDS: LATANOPROST 0.005% OPHTH DROPS 2.5ML EACHEYE SCH (22:16)
== END 2017-06-16 23:33 | disposition home or self-care (01) | DRG 133 ==
LOC: ER 05:11 → 5WST 05:23 → ENRESERV 05:50 → CANRESERV 05:50 → EDBEDREQ 08:42 → EDBEDREQSVC 08:59 → ENRESERV 15:22
PROVIDERS: ADMIT Internal Medicine; ATTEND Internal Medicine
PROC: 5A09457 Assistance with Respiratory Ventilation, 24-96 Consecutive Hours, Continuous Positive Airway Pressure (ICD-10-PCS; principal; 2017-06-08)
PROC: 30233N1 Transfusion of Nonautologous Red Blood Cells into Peripheral Vein, Percutaneous Approach (ICD-10-PCS; 2017-06-10)
DX: J96.00 Acute respiratory failure, unspecified whether with hypoxia or hypercapnia (principal); E43 Unspecified severe protein-calorie malnutrition; I50.33 Acute on chronic diastolic (congestive) heart failure; E87.2 Acidosis; R65.10 Systemic inflammatory response syndrome (SIRS) of non-infectious origin without acute organ dysfunction; N17.9 Acute kidney failure, unspecified; I13.0 Hypertensive heart and chronic kidney disease with heart failure and stage 1 through stage 4 chronic kidney disease, or unspecified chronic kidney disease; E11.22 Type 2 diabetes mellitus with diabetic chronic kidney disease; E11.649 Type 2 diabetes mellitus with hypoglycemia without coma; N18.3 Chronic kidney disease, stage 3 (moderate); E46 Unspecified protein-calorie malnutrition; E66.01 Morbid (severe) obesity due to excess calories; J44.1 Chronic obstructive pulmonary disease with (acute) exacerbation; I16.1 Hypertensive emergency; G47.33 Obstructive sleep apnea (adult) (pediatric); I89.0 Lymphedema, not elsewhere classified; D72.829 Elevated white blood cell count, unspecified; D63.8 Anemia in other chronic diseases classified elsewhere; E78.5 Hyperlipidemia, unspecified; Z99.81 Dependence on supplemental oxygen; Z80.3 Family history of malignant neoplasm of breast; Z68.43 Body mass index [BMI] 50.0-59.9, adult; Z82.49 Family history of ischemic heart disease and other diseases of the circulatory system; Z83.3 Family history of diabetes mellitus; Z74.01 Bed confinement status; Z88.0 Allergy status to penicillin; Z79.82 Long term (current) use of aspirin; Z79.4 Long term (current) use of insulin; Z79.899 Other long term (current) drug therapy; Z90.710 Acquired absence of both cervix and uterus; Z98.51 Tubal ligation status
CPT/HCPCS: 36415; 36600; 51702; 71010; 80048; 80053; 80305; 81001; 82375; 82378; 82550; 82607; 82728; 82805; 82962; 83010; 83540; 83550; 83605; 83615; 83690; 83735; 83880; 84156; 84484; 85014; 85018; 85025; 85044; 85379; 85610; 85730; 86850; 86900; 86920; 87040; 87077; 87086; 87186; 90686; 93005; 93306; 93970; 94640; 94660; 94664; 96365; 96368; 96375; 97110; 97162; 97530; 99291; C9113; G0482; J0360; J1650; J1815; J1940; J1956; J2270; J2405; J2920; J2930; J3475; J3490; J7030; J7040; J7050; J7512; J7611; J7620; J7626; P9016; A4315

== ENCOUNTER 2017-06-21 09:50 | Emergency (ER) | payer MEDICAID, OTHER ==
[~2017-06-21] VITALS: Ht 170.2 cm; Wt 160.0 kg
[2017-06-21] MEDS ORDERED: BISACODYL 10MG SUPP PR ONE (10:45)
[2017-06-21] MEDS ORDERED: MAGNESIUM CITRATE 300ML SOLUTION PO ONE (10:45)
[2017-06-21] MEDS ORDERED: TRAMADOL 50MG TABLET PO ONE (11:00)
[2017-06-21] MEDS ORDERED: NA PHOS,M-B/NA PHOS,DI-BA ENEMA 118ML PR ONE (12:45)
[2017-06-21 20:00] VITALS: BP 147/79
== END 2017-06-21 20:00 | disposition home or self-care (01) ==
LOC: ER 10:02
DX: K59.00 Constipation, unspecified (principal); I11.0 Hypertensive heart disease with heart failure; E11.9 Type 2 diabetes mellitus without complications; J44.9 Chronic obstructive pulmonary disease, unspecified; G47.33 Obstructive sleep apnea (adult) (pediatric); E66.01 Morbid (severe) obesity due to excess calories; Z68.43 Body mass index [BMI] 50.0-59.9, adult; Z79.4 Long term (current) use of insulin; Z88.0 Allergy status to penicillin; Z79.82 Long term (current) use of aspirin
CPT/HCPCS: 99284

== ENCOUNTER 2017-11-12 16:34 | Emergency (ER) | payer MEDICAID ==
[~2017-11-12] VITALS: Ht 167.6 cm; Wt 120.0 kg
[~2017-11-12 16:34] MED LIST changes: -CLON0.1T14 PO; -FLUT1DIS3 IH; +METO-293 PO; -MONT10TA21 PO; +OXYC-100 PO; +PREG50CA PO; -PROAIR INH
[2017-11-12 21:06] LABS: EOSINOPHILS % 2.7 % (0.0-5.0); HEMATOCRIT. 31.9 % (36.0-48.0); HEMOGLOBIN. 10.1 g/dL (12.0-16.0); LYMPHOCYTES % 14.5 % (20.0-50.0); MEAN CORPUSCULAR VOLUME 82.1 fL (81.0-99.0); MONOCYTES % 8.8 % (2.0-8.0); PLATELET 172 x1000/uL (130-400); RED BLOOD CELL COUNT 3.89 mill/uL (4.2-5.4); RED CELL DISTRIBUTION WIDTH 16.6 % (11.6-14.6)
[2017-11-12 21:11] LABS: PROTHROMBIN TIME 10.5 sec (9.4-11.6)
[2017-11-12 21:13] LABS: CHLORIDE 104 mEq/L (98-107)
[2017-11-12 21:19] LABS: TROPONIN I 0.05 ng/mL (0.00-0.04)
[2017-11-12] MEDS ORDERED: CLONIDINE 0.2MG TABLET PO ONE (22:00)
[2017-11-13 02:43] VITALS: BP 166/84
== END 2017-11-13 02:52 | disposition home or self-care (01) ==
LOC: ER 17:35
DX: J44.1 Chronic obstructive pulmonary disease with (acute) exacerbation (principal); J18.9 Pneumonia, unspecified organism; D72.829 Elevated white blood cell count, unspecified; N18.9 Chronic kidney disease, unspecified; E11.22 Type 2 diabetes mellitus with diabetic chronic kidney disease; I13.0 Hypertensive heart and chronic kidney disease with heart failure and stage 1 through stage 4 chronic kidney disease, or unspecified chronic kidney disease; E88.09 Other disorders of plasma-protein metabolism, not elsewhere classified; D64.9 Anemia, unspecified; I50.9 Heart failure, unspecified; I44.0 Atrioventricular block, first degree; I48.91 Unspecified atrial fibrillation; I89.0 Lymphedema, not elsewhere classified; Z79.4 Long term (current) use of insulin; Z79.82 Long term (current) use of aspirin; Z88.0 Allergy status to penicillin
CPT/HCPCS: 36415; 71045; 80053; 83880; 84484; 85025; 85610; 93005; 99285; Z7610

== ENCOUNTER 2017-12-08 07:48 | Inpatient (IN) | payer MEDICAID ==
[~2017-12-08] VITALS: Ht 152.4 cm; Wt 141.3 kg
[2017-12-08] VITALS (38 sets, daily range): BP systolic 101–226; BP diastolic 33–151
[2017-12-08] MEDS ORDERED: METHYLPREDNISOLONE SOD SUCC 125 MG/2 ML VIAL IV STA (08:18)
[2017-12-08] MEDS ORDERED: IPRATROPIUM BROMIDE (0.02%) 0.5MG/2.5ML NEB HHN STA (08:18)
[2017-12-08] MEDS ORDERED: ALBUTEROL (0.083%) 2.5MG/3ML NEB HHN STA (08:18)
[2017-12-08 08:22] LABS: BG BASE EXCESS 2.7 mmol/L (-2.0-2.0); BG CARBOXYHEMOGLOBIN 0.7 % (0.5-1.5); BG DEOXYHEMOGLOBIN 1.2 % (0.0-5.0); BG FRACTION INSPIRED OXYGEN 100; BG HCO3 ACT 30.7 mmol/L (22.0-26.0); BG METHEMOGLOBIN 0.3 % (0.0-1.5); BG OXYGEN SATURATION 98.8 % (92.0-98.5); BG OXYHEMOGLOBIN 97.8 % (94.0-97.0); BG PCO2 67.6 mmHg (35.0-45.0); BG PH 7.275 (7.350-7.450); BG SAMPLE SITE RIGHT BRACHIAL; BG TOTAL HEMOGLOBIN 10.2 g/dL (12.0-18.0); BG VENT MODE MASK - NRB
[2017-12-08] MEDS ORDERED: HYDRALAZINE 20MG/ML VIAL IV ONE (08:30)
[2017-12-08] MEDS ORDERED: MAGNESIUM 2 G PREMIX 50 ML IV ONE (08:30)
[2017-12-08] MEDS ORDERED: LEVOFLOXACIN 750MG PREMIX 150 ML IV ONE (09:00)
[2017-12-08] MEDS ORDERED: FUROSEMIDE 40MG/4ML VIAL IVP ONE (09:00)
[2017-12-08 09:16] LABS: BASOPHILS % 0.7 % (0.0-2.0); EOSINOPHILS % 0.7 % (0.0-5.0); HEMATOCRIT. 31.4 % (36.0-48.0); HEMOGLOBIN. 9.9 g/dL (12.0-16.0); LYMPHOCYTES % 8.6 % (20.0-50.0); MEAN CORPUSCULAR HEMOGLOBIN 25.5 pg (28.0-32.0); MEAN CORPUSCULAR VOLUME 80.5 fL (81.0-99.0); MEAN PLATELET VOLUME 8.4 fl (7.4-10.4); MONOCYTES % 4.2 % (2.0-8.0); NEUTROPHILS % 85.8 % (40.0-76.0); PLATELET 285 x1000/uL (130-400); RED CELL DISTRIBUTION WIDTH 18.2 % (11.6-14.6)
[2017-12-08 09:21] LABS: INR 1.1; PARTIAL THROMBOPLASTIN TIME 28.3 sec (23.4-31.0); PROTHROMBIN TIME 11.1 sec (9.4-11.6)
[2017-12-08 09:24] LABS: CHLORIDE 107 mEq/L (98-107)
[2017-12-08 09:26] LABS: AMMONIA 17 uMol/L (<32)
[2017-12-08] MEDS ORDERED: SODIUM BICARBONATE 4% (2.4MEQ) 5ML VIAL IV ONE (09:28)
[2017-12-08 09:40] LABS: BG BASE EXCESS 5.8 mmol/L (-2.0-2.0); BG CARBOXYHEMOGLOBIN 0.3 % (0.5-1.5); BG DEOXYHEMOGLOBIN 1.7 % (0.0-5.0); BG FRACTION INSPIRED OXYGEN 50; BG HCO3 ACT 31.3 mmol/L (22.0-26.0); BG METHEMOGLOBIN 0.3 % (0.0-1.5); BG OXYGEN SATURATION 98.3 % (92.0-98.5); BG OXYHEMOGLOBIN 97.7 % (94.0-97.0); BG PCO2 50.4 mmHg (35.0-45.0); BG PH 7.411 (7.350-7.450); BG PO2 151.2 mmHg (75.0-100.0); BG SAMPLE SITE LEFT RADIAL; BG TOTAL HEMOGLOBIN 10.3 g/dL (12.0-18.0); BG VENT MODE MASK - BIPAP
[2017-12-08] MEDS ORDERED: NITROGLYCERIN 50MG PREMIX 250 ML IV ONE (09:45)
[2017-12-08] MEDS ORDERED: DEXTROSE 50% WATER 50ML SYRINGE IV ONE (10:30)
[2017-12-08] MEDS ORDERED: LIDOCAINE HCL/PF 1% 2ML VIAL ONE ×2 (14:10→14:37)
[2017-12-08 14:18] LABS: CLARITY URINE CLEAR (CLEAR); COLOR URINE YELLOW (YELLOW); KETONES URINE NEGATIVE (NEGATIVE); LEUKOCYTE ESTERASE URINE NEGATIVE (NEGATIVE); NITRITE URINE NEGATIVE (NEGATIVE); OCCULT BLOOD URINE TRACE (NEGATIVE); PROTEIN URINE 4+ (NEGATIVE); SPECIFIC GRAVITY URINE 1.015 (1.005-1.030); UROBILINOGEN URINE 0.2 E.U./dL (0.2-1.0)
[2017-12-08] MEDS ORDERED: DEXTROSE 50% WATER 50ML SYRINGE IV PRN (15:15)
[2017-12-08] MEDS ORDERED: NITROGLYCERIN 50MG PREMIX 250 ML IV PRN (16:07)
[2017-12-08] MEDS: IPRATROPIUM/ALBUTEROL 0.5-3(2.5)MG/3ML NEB HHN SCH ×2 (16:24→20:56)
[2017-12-08] MEDS: METHYLPREDNISOLONE SOD SUCC 40 MG/ML VIAL IV SCH ×2 (16:25→23:28)
[2017-12-08] MEDS: DILTIAZEM HCL 5MG/ML 5ML VIAL IV SCH ×2 (16:26→21:04)
[2017-12-08] MEDS: MORPHINE SULFATE 4 MG/ML CPJ (NOT FOR IM USE) IV PRN ×2 (16:27→20:39)
[2017-12-08] MEDS: BLOOD SUGAR DIAGNOSTIC STRIP TEST SCH ×2 (16:38→20:53)
[2017-12-08] MEDS: INSULIN LISPRO 100 UNITS/ML SUBCUT SCH ×2 (16:38→20:52)
[2017-12-08] MEDS ORDERED: NICARDIPINE 40MG/200ML PREMIX 200 ML IV PRN (17:00)
[2017-12-08] MEDS ORDERED: PNEUMOCOCCAL 23-VAL P-SAC VAC 0.5 ML IM ONE (18:30)
[2017-12-08] MEDS ORDERED: INFLUENZA VIRUS VACCINE 0.5ML SYR IM ONE (18:30)
[2017-12-08] MEDS: NICARDIPINE 40MG/200ML PREMIX 200 ML IV PRN (19:18)
[2017-12-08] MEDS: FAMOTIDINE 20MG/2ML VIAL IV SCH (20:38)
[2017-12-08] MEDS ORDERED: NON FORMULARY PATIENT HOME MED EA OP SCH (21:00)
[2017-12-08] MEDS ORDERED: HEPARIN 5000 UNITS/ML VIAL SUBCUT SCH (21:00)
[2017-12-08] MEDS: LATANOPROST 0.005% OPHTH DROPS 2.5ML EACHEYE SCH (21:05)
[2017-12-08] MEDS: OXYCODONE HCL/ACETAMINOPHEN 5/325MG TABLET PO PRN (22:18)
[2017-12-09] VITALS (80 sets, daily range): BP systolic 124–189; BP diastolic 31–96
[2017-12-09] MEDS: IPRATROPIUM/ALBUTEROL 0.5-3(2.5)MG/3ML NEB HHN SCH ×6 (00:49→22:06)
[2017-12-09] MEDS: NICARDIPINE 40MG/200ML PREMIX 200 ML IV PRN (02:05)
[2017-12-09] MEDS: DILTIAZEM HCL 5MG/ML 5ML VIAL IV SCH (05:16)
[2017-12-09] MEDS: OXYCODONE HCL/ACETAMINOPHEN 5/325MG TABLET PO PRN (05:17)
[2017-12-09 06:00] LABS: HEMATOCRIT. 22.1 % (36.0-48.0); HEMOGLOBIN. 7.1 g/dL (12.0-16.0); MEAN CORPUSCULAR HEMOGLOBIN 26.4 pg (28.0-32.0); MEAN CORPUSCULAR VOLUME 81.7 fL (81.0-99.0); RED CELL DISTRIBUTION WIDTH 18.5 % (11.6-14.6)
[2017-12-09 06:07] LABS: PREALBUMIN 14.3 mg/dL (20.0-40.0)
[2017-12-09] MEDS: BLOOD SUGAR DIAGNOSTIC STRIP TEST SCH ×4 (06:24→21:12)
[2017-12-09] MEDS: INSULIN LISPRO 100 UNITS/ML SUBCUT SCH ×4 (06:37→21:17)
[2017-12-09 08:16] LABS: BG BASE EXCESS 5.1 mmol/L (-2.0-2.0); BG CARBOXYHEMOGLOBIN 0.9 % (0.5-1.5); BG DEOXYHEMOGLOBIN 4.8 % (0.0-5.0); BG FRACTION INSPIRED OXYGEN 28; BG METHEMOGLOBIN 0.1 % (0.0-1.5); BG OXYGEN SATURATION 95.2 % (92.0-98.5); BG OXYHEMOGLOBIN 94.2 % (94.0-97.0); BG PCO2 46.3 mmHg (35.0-45.0); BG PH 7.429 (7.350-7.450); BG PO2 77.9 mmHg (75.0-100.0); BG SAMPLE SITE RIGHT RADIAL; BG TOTAL HEMOGLOBIN 8.4 g/dL (12.0-18.0); BG VENT MODE NASAL CANNULA
[2017-12-09 08:44] LABS: PLATELET ESTIMATE NORMAL
[2017-12-09 08:45] LABS: PLATELET 213 x1000/uL (130-400)
[2017-12-09] MEDS ORDERED: LEVOFLOXACIN 250MG PREMIX 50 ML IV SCH (09:00)
[2017-12-09] MEDS: LOSARTAN POTASSIUM 100 MG TABLET PO SCH (09:14)
[2017-12-09] MEDS: DILTIAZEM HCL 60MG TABLET PO SCH ×3 (09:14→23:16)
[2017-12-09] MEDS: GABAPENTIN 300MG CAPSULE PO SCH ×2 (09:14→17:15)
[2017-12-09] MEDS: METHYLPREDNISOLONE SOD SUCC 40 MG/ML VIAL IV SCH ×3 (09:15→23:55)
[2017-12-09] MEDS: FUROSEMIDE 40MG/4ML VIAL IVP SCH (09:15)
[2017-12-09] MEDS ORDERED: ONDANSETRON 4MG ODT PO PRN (10:30)
[2017-12-09 12:46] LABS: HEMATOCRIT 24.6 % (36.0-48.0); HEMOGLOBIN 8.2 g/dL (12.0-16.0); MEAN CORPUSCULAR HEMOGLOBIN 26.6 pg (28.0-32.0); MEAN CORPUSCULAR VOLUME 79.8 fL (81.0-99.0); PLATELET 218 x1000/uL (130-400); RED BLOOD CELL COUNT 3.08 mill/uL (4.2-5.4); RED CELL DISTRIBUTION WIDTH 18.1 % (11.6-14.6)
[2017-12-09] MEDS: METOCLOPRAMIDE HCL 5MG TABLET PO SCH ×3 (12:50→23:16)
[2017-12-09] MEDS: HYDROCODONE/ACETAMINOPHEN 5/325MG TABLET PO PRN (14:22)
[2017-12-09 14:31] LABS: FOLIC ACID (FOLATE) SERUM >20 ng/mL ng/mL (>5.38)
[2017-12-09 14:33] LABS: FERRITIN 713 ng/mL (10-291)
[2017-12-09 15:25] LABS: VITAMIN B12 SERUM 544 pg/mL (211-911)
[2017-12-09] MEDS: CLONIDINE 0.2MG TABLET PO PRN ×2 (18:49→21:23)
[2017-12-09] MEDS: LATANOPROST 0.005% OPHTH DROPS 2.5ML EACHEYE SCH (21:00)
[2017-12-09] MEDS: FAMOTIDINE 20MG/2ML VIAL IV SCH (21:04)
[2017-12-10] VITALS (14 sets, daily range): BP systolic 145–166; BP diastolic 47–80
[2017-12-10] MEDS: HYDROCODONE/ACETAMINOPHEN 5/325MG TABLET PO PRN ×2 (00:02→20:59)
[2017-12-10] MEDS: IPRATROPIUM/ALBUTEROL 0.5-3(2.5)MG/3ML NEB HHN SCH ×6 (00:17→21:11)
[2017-12-10] MEDS: METOCLOPRAMIDE HCL 5MG TABLET PO SCH ×4 (06:54→20:40)
[2017-12-10] MEDS: DILTIAZEM HCL 60MG TABLET PO SCH (06:56)
[2017-12-10] MEDS: BLOOD SUGAR DIAGNOSTIC STRIP TEST SCH ×4 (08:16→20:50)
[2017-12-10] MEDS: INSULIN LISPRO 100 UNITS/ML SUBCUT SCH ×4 (08:59→22:17)
[2017-12-10] MEDS: METHYLPREDNISOLONE SOD SUCC 40 MG/ML VIAL IV SCH (09:06)
[2017-12-10] MEDS: FUROSEMIDE 40MG/4ML VIAL IVP SCH (09:06)
[2017-12-10] MEDS: GABAPENTIN 300MG CAPSULE PO SCH ×2 (09:07→18:08)
[2017-12-10] MEDS: LOSARTAN POTASSIUM 100 MG TABLET PO SCH (09:07)
[2017-12-10] MEDS ORDERED: DEXTROSE 50% WATER 50ML SYRINGE IV PRN (09:15)
[2017-12-10 09:41] LABS: HEMATOCRIT. 23.6 % (36.0-48.0); HEMOGLOBIN. 7.5 g/dL (12.0-16.0); MEAN CORPUSCULAR HEMOGLOBIN 25.8 pg (28.0-32.0); MEAN CORPUSCULAR VOLUME 81.1 fL (81.0-99.0); MEAN PLATELET VOLUME 9.1 fl (7.4-10.4); PLATELET 194 x1000/uL (130-400); RED CELL DISTRIBUTION WIDTH 18.5 % (11.6-14.6)
[2017-12-10 10:07] LABS: CHLORIDE 101 mEq/L (98-107)
[2017-12-10 10:13] LABS: PHOSPHORUS 4.9 mg/dL (2.5-4.9)
[2017-12-10] MEDS: PREDNISONE 20MG TABLET PO SCH ×2 (10:18→18:11)
[2017-12-10 11:26] LABS: PLATELET ESTIMATE NORMAL
[2017-12-10] MEDS ORDERED: DILTIAZEM HCL 60MG TABLET PO SCH (12:00)
[2017-12-10] MEDS: LEVOFLOXACIN 250MG PREMIX 50 ML IV SCH (12:06)
[2017-12-10] MEDS: DILTIAZEM HCL 90MG TABLET PO SCH ×2 (12:11→18:09)
[2017-12-10] MEDS: IRON SUCROSE COMPLEX 100 MG/5 ML ML IV SCH (12:13)
[2017-12-10] MEDS: INSULIN GLARGINE UD 100 UNITS/ML SYR SUBCUT SCH ×2 (12:16→22:18)
[2017-12-10] MEDS: FAMOTIDINE 20MG/2ML VIAL IV SCH (20:39)
[2017-12-10] MEDS: LATANOPROST 0.005% OPHTH DROPS 2.5ML EACHEYE SCH (20:41)
[2017-12-10 20:44] LABS: HEMATOCRIT 27.9 % (36.0-48.0); HEMOGLOBIN 8.9 g/dL (12.0-16.0)
[2017-12-11] VITALS (12 sets, daily range): BP systolic 145–199; BP diastolic 57–77
[2017-12-11] MEDS: DILTIAZEM HCL 90MG TABLET PO SCH ×2 (00:36→06:47)
[2017-12-11] MEDS: IPRATROPIUM/ALBUTEROL 0.5-3(2.5)MG/3ML NEB HHN SCH ×6 (01:19→20:29)
[2017-12-11] MEDS: HYDROCODONE/ACETAMINOPHEN 5/325MG TABLET PO PRN ×2 (05:06→18:10)
[2017-12-11 06:02] LABS: HEMOGLOBIN. 9.1 g/dL (12.0-16.0); MEAN CORPUSCULAR HEMOGLOBIN 26.3 pg (28.0-32.0); MEAN CORPUSCULAR VOLUME 81.3 fL (81.0-99.0); PLATELET 212 x1000/uL (130-400); RED BLOOD CELL COUNT 3.44 mill/uL (4.2-5.4); RED CELL DISTRIBUTION WIDTH 18.4 % (11.6-14.6)
[2017-12-11 06:44] LABS: CHLORIDE 99 mEq/L (98-107)
[2017-12-11] MEDS: METOCLOPRAMIDE HCL 5MG TABLET PO SCH ×4 (06:47→20:48)
[2017-12-11 06:55] LABS: PHOSPHORUS 4.3 mg/dL (2.5-4.9)
[2017-12-11] MEDS: BLOOD SUGAR DIAGNOSTIC STRIP TEST SCH ×4 (07:30→20:54)
[2017-12-11] MEDS: INSULIN LISPRO 100 UNITS/ML SUBCUT SCH ×4 (09:22→21:00)
[2017-12-11] MEDS: INSULIN GLARGINE UD 100 UNITS/ML SYR SUBCUT SCH ×2 (10:26→21:01)
[2017-12-11] MEDS: GABAPENTIN 300MG CAPSULE PO SCH ×2 (10:27→18:08)
[2017-12-11] MEDS: PREDNISONE 20MG TABLET PO SCH (10:27)
[2017-12-11] MEDS: IRON SUCROSE COMPLEX 100 MG/5 ML ML IV SCH (10:28)
[2017-12-11] MEDS: LOSARTAN POTASSIUM 100 MG TABLET PO SCH (10:31)
[2017-12-11] MEDS: LEVOFLOXACIN 250MG PREMIX 50 ML IV SCH (10:39)
[2017-12-11] MEDS ORDERED: SPIRONOLACTONE 25MG TABLET PO SCH (11:45)
[2017-12-11] MEDS: HYDRALAZINE 20MG/ML VIAL IV PRN ×2 (12:15→23:36)
[2017-12-11 16:54] LABS: PLATELET ESTIMATE NORMAL
[2017-12-11] MEDS: FAMOTIDINE 20MG TABLET PO SCH (20:48)
[2017-12-11] MEDS: DILTIAZEM HCL 360MG CAPSULE SA 24HR PO SCH (20:49)
[2017-12-11] MEDS: LATANOPROST 0.005% OPHTH DROPS 2.5ML EACHEYE SCH (21:02)
[2017-12-12] VITALS (12 sets, daily range): BP systolic 148–171; BP diastolic 46–70
[2017-12-12] MEDS: IPRATROPIUM/ALBUTEROL 0.5-3(2.5)MG/3ML NEB HHN SCH ×6 (00:30→20:44)
[2017-12-12 06:20] LABS: HEMATOCRIT. 26.5 % (36.0-48.0); HEMOGLOBIN. 8.7 g/dL (12.0-16.0); MEAN CORPUSCULAR HEMOGLOBIN 26.4 pg (28.0-32.0); MEAN CORPUSCULAR VOLUME 80.6 fL (81.0-99.0); MEAN PLATELET VOLUME 8.7 fl (7.4-10.4); PLATELET 178 x1000/uL (130-400); RED BLOOD CELL COUNT 3.29 mill/uL (4.2-5.4); RED CELL DISTRIBUTION WIDTH 18.5 % (11.6-14.6)
[2017-12-12 06:24] LABS: PHOSPHORUS 3.8 mg/dL (2.5-4.9)
[2017-12-12] MEDS: BLOOD SUGAR DIAGNOSTIC STRIP TEST SCH ×4 (07:40→20:41)
[2017-12-12] MEDS: HYDROCODONE/ACETAMINOPHEN 5/325MG TABLET PO PRN (08:09)
[2017-12-12] MEDS: METOCLOPRAMIDE HCL 5MG TABLET PO SCH (08:09)
[2017-12-12] MEDS: INSULIN LISPRO 100 UNITS/ML SUBCUT SCH ×4 (08:14→20:48)
[2017-12-12] MEDS: LOSARTAN POTASSIUM 100 MG TABLET PO SCH (09:30)
[2017-12-12] MEDS: GABAPENTIN 300MG CAPSULE PO SCH ×2 (09:30→18:14)
[2017-12-12] MEDS: PREDNISONE 20MG TABLET PO SCH (09:30)
[2017-12-12] MEDS: IRON SUCROSE COMPLEX 100 MG/5 ML ML IV SCH (09:30)
[2017-12-12] MEDS: INSULIN GLARGINE UD 100 UNITS/ML SYR SUBCUT SCH ×2 (10:19→23:09)
[2017-12-12] MEDS: LEVOFLOXACIN 250MG PREMIX 50 ML IV SCH (10:21)
[2017-12-12 12:14] LABS: PLATELET ESTIMATE NORMAL
[2017-12-12] MEDS ORDERED: MAGNESIUM CITRATE 300ML SOLUTION PO NR (12:45)
[2017-12-12] MEDS: METOCLOPRAMIDE HCL 10MG TABLET PO SCH ×3 (12:53→20:36)
[2017-12-12] MEDS: LATANOPROST 0.005% OPHTH DROPS 2.5ML EACHEYE SCH (20:36)
[2017-12-12] MEDS: DILTIAZEM HCL 360MG CAPSULE SA 24HR PO SCH (20:36)
[2017-12-12] MEDS: FAMOTIDINE 20MG TABLET PO SCH (20:36)
[2017-12-13] VITALS (12 sets, daily range): BP systolic 127–205; BP diastolic 49–84
[2017-12-13] MEDS: IPRATROPIUM/ALBUTEROL 0.5-3(2.5)MG/3ML NEB HHN SCH ×6 (00:33→19:57)
[2017-12-13] MEDS: HYDROCODONE/ACETAMINOPHEN 5/325MG TABLET PO PRN ×2 (05:42→22:16)
[2017-12-13 06:27] LABS: HEMOGLOBIN. 9.3 g/dL (12.0-16.0); MEAN CORPUSCULAR HEMOGLOBIN 26.3 pg (28.0-32.0); MEAN CORPUSCULAR VOLUME 82.4 fL (81.0-99.0); PLATELET 198 x1000/uL (130-400); RED BLOOD CELL COUNT 3.52 mill/uL (4.2-5.4); RED CELL DISTRIBUTION WIDTH 18.9 % (11.6-14.6)
[2017-12-13 07:42] LABS: PHOSPHORUS 3.7 mg/dL (2.5-4.9)
[2017-12-13] MEDS: BLOOD SUGAR DIAGNOSTIC STRIP TEST SCH ×4 (08:02→21:52)
[2017-12-13] MEDS: IRON SUCROSE COMPLEX 100 MG/5 ML ML IV SCH (08:17)
[2017-12-13] MEDS: INSULIN LISPRO 100 UNITS/ML SUBCUT SCH ×4 (08:25→22:09)
[2017-12-13] MEDS: PREDNISONE 20MG TABLET PO SCH (08:33)
[2017-12-13] MEDS: LOSARTAN POTASSIUM 100 MG TABLET PO SCH (08:33)
[2017-12-13] MEDS: METOCLOPRAMIDE HCL 10MG TABLET PO SCH ×4 (08:33→21:51)
[2017-12-13] MEDS: GABAPENTIN 300MG CAPSULE PO SCH ×2 (08:33→17:20)
[2017-12-13] MEDS: LEVOFLOXACIN 250MG PREMIX 50 ML IV SCH (10:39)
[2017-12-13] MEDS: INSULIN GLARGINE UD 100 UNITS/ML SYR SUBCUT SCH ×2 (10:40→22:08)
[2017-12-13 15:41] LABS: PLATELET ESTIMATE NORMAL
[2017-12-13] MEDS ORDERED: NON FORMULARY PATIENT HOME MED EA XX SCH (17:00)
[2017-12-13] MEDS: HYDRALAZINE 20MG/ML VIAL IV PRN (18:34)
[2017-12-13] MEDS: DILTIAZEM HCL 360MG CAPSULE SA 24HR PO SCH (21:49)
[2017-12-13] MEDS: FAMOTIDINE 20MG TABLET PO SCH (21:49)
[2017-12-13] MEDS: HYDRALAZINE HCL 50MG TABLET PO SCH (21:51)
[2017-12-13] MEDS: LATANOPROST 0.005% OPHTH DROPS 2.5ML EACHEYE SCH (21:51)
[2017-12-14] VITALS (19 sets, daily range): BP systolic 3–201; BP diastolic 51–78
[2017-12-14] MEDS: IPRATROPIUM/ALBUTEROL 0.5-3(2.5)MG/3ML NEB HHN SCH ×6 (00:14→22:09)
[2017-12-14 07:28] LABS: HEMATOCRIT. 33.2 % (36.0-48.0); HEMOGLOBIN. 10.7 g/dL (12.0-16.0); MEAN CORPUSCULAR HEMOGLOBIN 26.4 pg (28.0-32.0); MEAN CORPUSCULAR VOLUME 82.2 fL (81.0-99.0); MEAN PLATELET VOLUME 9.7 fl (7.4-10.4); PLATELET 254 x1000/uL (130-400); RED BLOOD CELL COUNT 4.04 mill/uL (4.2-5.4); RED CELL DISTRIBUTION WIDTH 19.4 % (11.6-14.6)
[2017-12-14] MEDS: BLOOD SUGAR DIAGNOSTIC STRIP TEST SCH ×4 (07:30→21:00)
[2017-12-14] MEDS: INSULIN LISPRO 100 UNITS/ML SUBCUT SCH ×4 (08:00→21:00)
[2017-12-14] MEDS: HYDRALAZINE 20MG/ML VIAL IV PRN (08:48)
[2017-12-14] MEDS: LOSARTAN POTASSIUM 100 MG TABLET PO SCH (09:00)
[2017-12-14] MEDS: PREDNISONE 20MG TABLET PO SCH (09:00)
[2017-12-14] MEDS: HYDRALAZINE HCL 50MG TABLET PO SCH (09:00)
[2017-12-14] MEDS: GABAPENTIN 300MG CAPSULE PO SCH ×2 (09:00→17:00)
[2017-12-14] MEDS: INSULIN GLARGINE UD 100 UNITS/ML SYR SUBCUT SCH ×2 (10:00→22:00)
[2017-12-14] MEDS: IRON SUCROSE COMPLEX 100 MG/5 ML ML IV SCH (10:43)
[2017-12-14 11:13] LABS: PLATELET ESTIMATE NORMAL
[2017-12-14] MEDS: METOCLOPRAMIDE HCL 10MG/2ML VIAL IV SCH ×2 (11:58→17:30)
[2017-12-14] MEDS ORDERED: METOCLOPRAMIDE HCL 10MG/2ML VIAL IV SCH (12:30)
[2017-12-14] MEDS: DEXT 5%/0.45% NACL 1000ML 1,000 ML IV SCH (14:43)
[2017-12-14] MEDS: HYDRALAZINE 20MG/ML VIAL IV SCH ×2 (14:46→22:44)
[2017-12-14 15:33] LABS: BG BASE EXCESS 5.8 mmol/L (-2.0-2.0); BG BILEVEL POS AIRWAY PRESSURE 14/5; BG CARBOXYHEMOGLOBIN 1.2 % (0.5-1.5); BG DEOXYHEMOGLOBIN 10.4 % (0.0-5.0); BG FRACTION INSPIRED OXYGEN 40; BG HCO3 ACT 34.3 mmol/L (22.0-26.0); BG OXYGEN SATURATION 89.5 % (92.0-98.5); BG OXYHEMOGLOBIN 88.4 % (94.0-97.0); BG PCO2 70.1 mmHg (35.0-45.0); BG PH 7.308 (7.350-7.450); BG PO2 59.3 mmHg (75.0-100.0); BG SAMPLE SITE RIGHT RADIAL; BG TOTAL HEMOGLOBIN 12.9 g/dL (12.0-18.0); BG VENT MODE MASK - BIPAP; BG VENT RATE 15 set
[2017-12-14] MEDS ORDERED: ONDANSETRON HCL 4MG/2ML VIAL IV PRN (16:15)
[2017-12-14] MEDS ORDERED: PANTOPRAZOLE SODIUM 40 MG/VIAL IV ONE (16:45)
[2017-12-14 18:35] LABS: BG BASE EXCESS 7.3 mmol/L (-2.0-2.0); BG BILEVEL POS AIRWAY PRESSURE 16/5; BG CARBOXYHEMOGLOBIN 1.6 % (0.5-1.5); BG DEOXYHEMOGLOBIN 7.1 % (0.0-5.0); BG FRACTION INSPIRED OXYGEN 50; BG METHEMOGLOBIN 0.2 % (0.0-1.5); BG OXYGEN SATURATION 92.8 % (92.0-98.5); BG OXYHEMOGLOBIN 91.1 % (94.0-97.0); BG PCO2 72.9 mmHg (35.0-45.0); BG PH 7.312 (7.350-7.450); BG PO2 65.3 mmHg (75.0-100.0); BG SAMPLE SITE RIGHT RADIAL; BG TOTAL HEMOGLOBIN 12.9 g/dL (12.0-18.0); BG VENT MODE MASK - BIPAP; BG VENT RATE 18 set
[2017-12-14 19:27] LABS: HEMATOCRIT 37.9 % (36.0-48.0); MEAN CORPUSCULAR HEMOGLOBIN 26.3 pg (28.0-32.0); PLATELET 247 x1000/uL (130-400); RED BLOOD CELL COUNT 4.57 mill/uL (4.2-5.4)
[2017-12-14] MEDS ORDERED: FAMOTIDINE 20MG TABLET PO SCH (21:00)
[2017-12-14] MEDS: DILTIAZEM HCL 360MG CAPSULE SA 24HR PO SCH (21:00)
[2017-12-14] MEDS: METHYLPREDNISOLONE SOD SUCC 40 MG/ML VIAL IV SCH (22:44)
[2017-12-14] MEDS: LATANOPROST 0.005% OPHTH DROPS 2.5ML EACHEYE SCH (22:55)
[2017-12-15] VITALS (47 sets, daily range): BP systolic 85–184; BP diastolic 31–107
[2017-12-15] MEDS: CEFEPIME 1,000 MG in DEXTROSE 5% WATER 50 ML IV SCH ×2 (00:50→21:55)
[2017-12-15] MEDS: HYDRALAZINE 20MG/ML VIAL IV SCH ×5 (00:55→22:52)
[2017-12-15] MEDS: IPRATROPIUM/ALBUTEROL 0.5-3(2.5)MG/3ML NEB HHN SCH ×6 (02:08→20:50)
[2017-12-15] MEDS: DEXT 5%/0.45% NACL 1000ML 1,000 ML IV SCH ×2 (04:13→18:33)
[2017-12-15] MEDS: METHYLPREDNISOLONE SOD SUCC 40 MG/ML VIAL IV SCH ×3 (07:09→21:55)
[2017-12-15] MEDS: INSULIN LISPRO 100 UNITS/ML SUBCUT SCH ×3 (08:00→18:32)
[2017-12-15] MEDS: BLOOD SUGAR DIAGNOSTIC STRIP TEST SCH ×3 (08:05→17:22)
[2017-12-15] MEDS: GABAPENTIN 300MG CAPSULE PO SCH (08:07)
[2017-12-15] MEDS: PREDNISONE 20MG TABLET PO SCH (08:07)
[2017-12-15] MEDS: LOSARTAN POTASSIUM 100 MG TABLET PO SCH (08:07)
[2017-12-15] MEDS: HYDRALAZINE 20MG/ML VIAL IV PRN (08:28)
[2017-12-15 08:51] LABS: BG BASE EXCESS 4.9 mmol/L (-2.0-2.0); BG BILEVEL POS AIRWAY PRESSURE ST=16/5; BG DEOXYHEMOGLOBIN 6.9 % (0.0-5.0); BG FRACTION INSPIRED OXYGEN 50; BG HCO3 ACT 31.2 mmol/L (22.0-26.0); BG METHEMOGLOBIN 0.3 % (0.0-1.5); BG OXYHEMOGLOBIN 91.8 % (94.0-97.0); BG PCO2 53.9 mmHg (35.0-45.0); BG PO2 63.2 mmHg (75.0-100.0); BG PRESSURE SUPPORT 11; BG SAMPLE SITE LEFT RADIAL; BG TOTAL HEMOGLOBIN 11.7 g/dL (12.0-18.0); BG VENT MODE MASK - BIPAP; BG VENT RATE 18 set
[2017-12-15 09:09] LABS: HEMATOCRIT. 34.4 % (36.0-48.0); HEMOGLOBIN. 11.2 g/dL (12.0-16.0); MEAN CORPUSCULAR HEMOGLOBIN 26.7 pg (28.0-32.0); MEAN CORPUSCULAR VOLUME 82.2 fL (81.0-99.0); MEAN PLATELET VOLUME 10.2 fl (7.4-10.4); PLATELET 161 x1000/uL (130-400); RED BLOOD CELL COUNT 4.18 mill/uL (4.2-5.4); RED CELL DISTRIBUTION WIDTH 20.1 % (11.6-14.6)
[2017-12-15 09:36] LABS: CHLORIDE 99 mEq/L (98-107)
[2017-12-15 09:46] LABS: PHOSPHORUS 4.1 mg/dL (2.5-4.9)
[2017-12-15] MEDS ORDERED: LIDOCAINE HCL/PF 1% 2ML VIAL ONE (10:21)
[2017-12-15] MEDS ORDERED: NORMAL SALINE 0.9% 10 ML SYR ONE (10:48)
[2017-12-15] MEDS ORDERED: ETOMIDATE 2MG/ML 10ML VIAL IV ONE (10:48)
[2017-12-15] MEDS ORDERED: SODIUM POLYSTYRENE SULFONATE 15 G/60 ML BOT NG NR (11:30)
[2017-12-15] MEDS: MIDAZOLAM HCL 50 MG in DEXTROSE 5% WATER 40 ML IV PRN (12:53)
[2017-12-15] MEDS: FENTANYL CITRATE/PF 500 MCG in SODIUM CHLORIDE 0.9% 40 ML IV PRN (12:54)
[2017-12-15 13:10] LABS: BG CARBOXYHEMOGLOBIN 0.6 % (0.5-1.5); BG DEOXYHEMOGLOBIN 0.9 % (0.0-5.0); BG FRACTION INSPIRED OXYGEN 100; BG HCO3 ACT 31.3 mmol/L (22.0-26.0); BG METHEMOGLOBIN 0.3 % (0.0-1.5); BG OXYGEN SATURATION 99.1 % (92.0-98.5); BG OXYHEMOGLOBIN 98.2 % (94.0-97.0); BG PCO2 53.8 mmHg (35.0-45.0); BG PH 7.382 (7.350-7.450); BG PO2 197.3 mmHg (75.0-100.0); BG SAMPLE SITE LEFT BRACHIAL; BG TIDAL VOLUME(mL) 500 mL; BG TOTAL HEMOGLOBIN 11.7 g/dL (12.0-18.0); BG VENT MODE VENT - A/C; BG VENT RATE 12 set
[2017-12-15 14:23] LABS: PLATELET ESTIMATE NORMAL
[2017-12-15 16:01] LABS: HEMATOCRIT 30.3 % (36.0-48.0); HEMOGLOBIN 9.7 g/dL (12.0-16.0); MEAN CORPUSCULAR HEMOGLOBIN 26.3 pg (28.0-32.0); MEAN CORPUSCULAR VOLUME 82.6 fL (81.0-99.0); PLATELET 162 x1000/uL (130-400); RED BLOOD CELL COUNT 3.67 mill/uL (4.2-5.4); RED CELL DISTRIBUTION WIDTH 19.9 % (11.6-14.6)
[2017-12-15] MEDS ORDERED: PANTOPRAZOLE SODIUM 40 MG/VIAL IV SCH (17:00)
[2017-12-15] MEDS ORDERED: METRONIDAZOLE 500 MG PREMIX 100 ML IV SCH (17:00)
[2017-12-15] MEDS ORDERED: SODIUM POLYSTYRENE SULFONATE 15 G/60 ML BOT PO NR (19:30)
[2017-12-15] MEDS: METRONIDAZOLE 500 MG PREMIX 100 ML IV SCH (20:24)
[2017-12-15] MEDS: PANTOPRAZOLE SODIUM 40 MG/VIAL IV SCH (21:54)
[2017-12-15 21:55] LABS: BG BASE EXCESS 8.6 mmol/L (-2.0-2.0); BG CARBOXYHEMOGLOBIN 1.1 % (0.5-1.5); BG DEOXYHEMOGLOBIN 3.3 % (0.0-5.0); BG HCO3 ACT 35.6 mmol/L (22.0-26.0); BG METHEMOGLOBIN 0.2 % (0.0-1.5); BG OXYGEN SATURATION 96.7 % (92.0-98.5); BG OXYHEMOGLOBIN 95.4 % (94.0-97.0); BG PCO2 59.8 mmHg (35.0-45.0); BG PEEP (cmH2O) 0 cmH2O; BG PH 7.393 (7.350-7.450); BG PO2 88.8 mmHg (75.0-100.0); BG SAMPLE SITE LEFT BRACHIAL; BG TIDAL VOLUME(mL) 500 mL; BG VENT MODE VENT - A/C; BG VENT RATE 12 set
[2017-12-15 23:21] LABS: HEMATOCRIT 31.1 % (36.0-48.0); HEMOGLOBIN 10.1 g/dL (12.0-16.0); MEAN CORPUSCULAR HEMOGLOBIN 26.3 pg (28.0-32.0); MEAN CORPUSCULAR VOLUME 80.9 fL (81.0-99.0); PLATELET 124 x1000/uL (130-400); RED BLOOD CELL COUNT 3.84 mill/uL (4.2-5.4); RED CELL DISTRIBUTION WIDTH 19.9 % (11.6-14.6)
[2017-12-16] VITALS (81 sets, daily range): BP systolic 73–184; BP diastolic 31–104
[2017-12-16] MEDS: INSULIN LISPRO 100 UNITS/ML SUBCUT SCH ×4 (00:18→17:05)
[2017-12-16] MEDS: BLOOD SUGAR DIAGNOSTIC STRIP TEST SCH ×4 (00:18→17:05)
[2017-12-16] MEDS: IPRATROPIUM/ALBUTEROL 0.5-3(2.5)MG/3ML NEB HHN SCH ×5 (00:45→20:33)
[2017-12-16] MEDS: METRONIDAZOLE 500 MG PREMIX 100 ML IV SCH ×3 (05:29→21:56)
[2017-12-16] MEDS: HYDRALAZINE 20MG/ML VIAL IV SCH ×3 (05:30→17:02)
[2017-12-16] MEDS: MIDAZOLAM HCL 50 MG in DEXTROSE 5% WATER 40 ML IV PRN (05:32)
[2017-12-16 05:33] LABS: HEMATOCRIT. 30.3 % (36.0-48.0); HEMOGLOBIN. 9.7 g/dL (12.0-16.0); MEAN CORPUSCULAR HEMOGLOBIN 26.6 pg (28.0-32.0); MEAN PLATELET VOLUME 10.4 fl (7.4-10.4); PLATELET 141 x1000/uL (130-400); RED BLOOD CELL COUNT 3.65 mill/uL (4.2-5.4); RED CELL DISTRIBUTION WIDTH 19.8 % (11.6-14.6)
[2017-12-16] MEDS: LATANOPROST 0.005% OPHTH DROPS 2.5ML EACHEYE SCH ×2 (05:36→21:56)
[2017-12-16] MEDS: METHYLPREDNISOLONE SOD SUCC 40 MG/ML VIAL IV SCH ×3 (05:51→21:56)
[2017-12-16 06:02] LABS: CHLORIDE 99 mEq/L (98-107)
[2017-12-16 06:05] LABS: PLATELET ESTIMATE NORMAL
[2017-12-16 06:15] LABS: PHOSPHORUS 4.2 mg/dL (2.5-4.9)
[2017-12-16] MEDS: PANTOPRAZOLE SODIUM 40 MG/VIAL IV SCH ×2 (08:02→21:56)
[2017-12-16 08:13] LABS: BG CARBOXYHEMOGLOBIN 0.4 % (0.5-1.5); BG DEOXYHEMOGLOBIN 4.2 % (0.0-5.0); BG FRACTION INSPIRED OXYGEN 40; BG HCO3 ACT 32.6 mmol/L (22.0-26.0); BG METHEMOGLOBIN 0.3 % (0.0-1.5); BG OXYGEN SATURATION 95.8 % (92.0-98.5); BG OXYHEMOGLOBIN 95.1 % (94.0-97.0); BG PCO2 51.4 mmHg (35.0-45.0); BG PO2 86.3 mmHg (75.0-100.0); BG SAMPLE SITE RIGHT RADIAL; BG TIDAL VOLUME(mL) 500 mL; BG TOTAL HEMOGLOBIN 10.6 g/dL (12.0-18.0); BG VENT MODE VENT - A/C; BG VENT RATE 12 set
[2017-12-16] MEDS: DEXT 5%/0.45% NACL 1000ML 1,000 ML IV SCH ×2 (10:54→20:05)
[2017-12-16] MEDS: FENTANYL CITRATE/PF 500 MCG in SODIUM CHLORIDE 0.9% 40 ML IV PRN (10:55)
[2017-12-16] MEDS: HYDRALAZINE 20MG/ML VIAL IV PRN (21:56)
[2017-12-17] VITALS (37 sets, daily range): BP systolic 117–181; BP diastolic 41–80
[2017-12-17] MEDS: CEFEPIME 1,000 MG in DEXTROSE 5% WATER 50 ML IV SCH (00:03)
[2017-12-17] MEDS: BLOOD SUGAR DIAGNOSTIC STRIP TEST SCH ×4 (00:03→17:59)
[2017-12-17] MEDS: HYDRALAZINE 20MG/ML VIAL IV SCH ×4 (00:03→18:15)
[2017-12-17] MEDS: INSULIN LISPRO 100 UNITS/ML SUBCUT SCH ×4 (00:12→18:15)
[2017-12-17] MEDS: IPRATROPIUM/ALBUTEROL 0.5-3(2.5)MG/3ML NEB HHN SCH ×6 (00:19→20:08)
[2017-12-17] MEDS: METRONIDAZOLE 500 MG PREMIX 100 ML IV SCH ×3 (05:36→21:55)
[2017-12-17] MEDS: METHYLPREDNISOLONE SOD SUCC 40 MG/ML VIAL IV SCH ×3 (05:45→21:55)
[2017-12-17 05:51] LABS: HEMATOCRIT. 28.7 % (36.0-48.0); HEMOGLOBIN. 9.2 g/dL (12.0-16.0); MEAN CORPUSCULAR HEMOGLOBIN 26.4 pg (28.0-32.0); MEAN CORPUSCULAR VOLUME 82.2 fL (81.0-99.0); MEAN PLATELET VOLUME 11.8 fl (7.4-10.4); PLATELET 130 x1000/uL (130-400); RED BLOOD CELL COUNT 3.49 mill/uL (4.2-5.4); RED CELL DISTRIBUTION WIDTH 19.8 % (11.6-14.6)
[2017-12-17 05:54] LABS: CHLORIDE 100 mEq/L (98-107)
[2017-12-17 06:05] LABS: PHOSPHORUS 3.9 mg/dL (2.5-4.9)
[2017-12-17 06:20] LABS: PLATELET ESTIMATE NORMAL
[2017-12-17 08:34] LABS: BG BASE EXCESS 5.8 mmol/L (-2.0-2.0); BG CARBOXYHEMOGLOBIN 0.3 % (0.5-1.5); BG DEOXYHEMOGLOBIN 2.7 % (0.0-5.0); BG FRACTION INSPIRED OXYGEN 40; BG HCO3 ACT 30.8 mmol/L (22.0-26.0); BG METHEMOGLOBIN 0.3 % (0.0-1.5); BG OXYGEN SATURATION 97.3 % (92.0-98.5); BG OXYHEMOGLOBIN 96.7 % (94.0-97.0); BG PCO2 47.3 mmHg (35.0-45.0); BG PH 7.431 (7.350-7.450); BG PO2 106.6 mmHg (75.0-100.0); BG SAMPLE SITE RIGHT RADIAL; BG TIDAL VOLUME(mL) 500 mL; BG VENT MODE VENT - A/C; BG VENT RATE 12 set
[2017-12-17] MEDS: PANTOPRAZOLE SODIUM 40 MG/VIAL IV SCH ×2 (09:30→21:16)
[2017-12-17] MEDS: DEXT 5%/0.45% NACL 1000ML 1,000 ML IV SCH ×2 (12:25→21:56)
[2017-12-17] MEDS: CLONIDINE 0.2MG TABLET PO PRN (13:14)
[2017-12-17] MEDS: MIDAZOLAM HCL 50 MG in DEXTROSE 5% WATER 40 ML IV PRN (14:21)
[2017-12-17] MEDS: MEROPENEM 500 MG in SODIUM CHLORIDE 0.9% 50 ML IV SCH (15:06)
[2017-12-17] MEDS: FENTANYL CITRATE/PF 500 MCG in SODIUM CHLORIDE 0.9% 40 ML IV PRN (19:58)
[2017-12-17] MEDS: LATANOPROST 0.005% OPHTH DROPS 2.5ML EACHEYE SCH (21:17)
[2017-12-18] VITALS (44 sets, daily range): BP systolic 107–176; BP diastolic 39–86
[2017-12-18] MEDS: BLOOD SUGAR DIAGNOSTIC STRIP TEST SCH ×5 (00:41→23:33)
[2017-12-18] MEDS: INSULIN LISPRO 100 UNITS/ML SUBCUT SCH ×4 (00:55→19:00)
[2017-12-18] MEDS: IPRATROPIUM/ALBUTEROL 0.5-3(2.5)MG/3ML NEB HHN SCH ×6 (01:05→20:11)
[2017-12-18 05:53] LABS: HEMATOCRIT. 27.7 % (36.0-48.0); HEMOGLOBIN. 9.1 g/dL (12.0-16.0); MEAN CORPUSCULAR HEMOGLOBIN 26.7 pg (28.0-32.0); MEAN CORPUSCULAR VOLUME 81.7 fL (81.0-99.0); MEAN PLATELET VOLUME 10.4 fl (7.4-10.4); PLATELET 125 x1000/uL (130-400); RED CELL DISTRIBUTION WIDTH 19.5 % (11.6-14.6)
[2017-12-18] MEDS: HYDRALAZINE 20MG/ML VIAL IV SCH ×5 (05:54→23:33)
[2017-12-18] MEDS: METHYLPREDNISOLONE SOD SUCC 40 MG/ML VIAL IV SCH ×2 (05:54→18:34)
[2017-12-18] MEDS: MIDAZOLAM HCL 50 MG in DEXTROSE 5% WATER 40 ML IV PRN (05:54)
[2017-12-18 06:06] LABS: CHLORIDE 101 mEq/L (98-107)
[2017-12-18 06:15] LABS: PHOSPHORUS 4.3 mg/dL (2.5-4.9)
[2017-12-18] MEDS: PANTOPRAZOLE SODIUM 40 MG/VIAL IV SCH ×2 (08:11→21:39)
[2017-12-18 08:37] LABS: PLATELET ESTIMATE SLIGHTLY DECREASED
[2017-12-18 08:39] LABS: BG BASE EXCESS 3.8 mmol/L (-2.0-2.0); BG CARBOXYHEMOGLOBIN 0.4 % (0.5-1.5); BG DEOXYHEMOGLOBIN 2.5 % (0.0-5.0); BG FRACTION INSPIRED OXYGEN 40; BG HCO3 ACT 30.1 mmol/L (22.0-26.0); BG METHEMOGLOBIN 0.2 % (0.0-1.5); BG OXYGEN SATURATION 97.5 % (92.0-98.5); BG OXYHEMOGLOBIN 96.9 % (94.0-97.0); BG PCO2 54.1 mmHg (35.0-45.0); BG PH 7.363 (7.350-7.450); BG SAMPLE SITE RIGHT RADIAL; BG TIDAL VOLUME(mL) 500 mL; BG VENT MODE VENT - A/C; BG VENT RATE 12 set
[2017-12-18] MEDS ORDERED: METHYLPREDNISOLONE SOD SUCC 40 MG/ML VIAL IV SCH (10:00)
[2017-12-18] MEDS: FENTANYL CITRATE/PF 500 MCG in SODIUM CHLORIDE 0.9% 40 ML IV PRN (10:44)
[2017-12-18] MEDS: METOCLOPRAMIDE HCL 10MG TABLET NG SCH ×3 (12:00→23:32)
[2017-12-18] MEDS: MEROPENEM 500 MG in SODIUM CHLORIDE 0.9% 50 ML IV SCH (18:34)
[2017-12-18] MEDS: DEXT 5%/0.45% NACL 1000ML 1,000 ML IV SCH ×2 (18:36→23:33)
[2017-12-18] MEDS: LATANOPROST 0.005% OPHTH DROPS 2.5ML EACHEYE SCH (21:38)
[2017-12-19] VITALS (56 sets, daily range): BP systolic 105–205; BP diastolic 38–130
[2017-12-19] MEDS: INSULIN LISPRO 100 UNITS/ML SUBCUT SCH ×4 (00:03→18:10)
[2017-12-19] MEDS: FENTANYL CITRATE/PF 500 MCG in SODIUM CHLORIDE 0.9% 40 ML IV PRN ×3 (01:12→20:23)
[2017-12-19] MEDS: MIDAZOLAM HCL 50 MG in DEXTROSE 5% WATER 40 ML IV PRN ×2 (01:13→18:12)
[2017-12-19] MEDS: IPRATROPIUM/ALBUTEROL 0.5-3(2.5)MG/3ML NEB HHN SCH ×6 (04:18→20:24)
[2017-12-19] MEDS: BLOOD SUGAR DIAGNOSTIC STRIP TEST SCH ×3 (05:27→17:32)
[2017-12-19] MEDS: METHYLPREDNISOLONE SOD SUCC 40 MG/ML VIAL IV SCH ×2 (05:36→18:09)
[2017-12-19] MEDS: METOCLOPRAMIDE HCL 10MG TABLET NG SCH ×3 (05:37→18:09)
[2017-12-19] MEDS: HYDRALAZINE 20MG/ML VIAL IV SCH ×4 (05:37→18:09)
[2017-12-19 08:20] LABS: BG BASE EXCESS 3.9 mmol/L (-2.0-2.0); BG CARBOXYHEMOGLOBIN 0.6 % (0.5-1.5); BG DEOXYHEMOGLOBIN 2.8 % (0.0-5.0); BG FRACTION INSPIRED OXYGEN 40; BG HCO3 ACT 29.6 mmol/L (22.0-26.0); BG METHEMOGLOBIN 0.1 % (0.0-1.5); BG OXYGEN SATURATION 97.2 % (92.0-98.5); BG OXYHEMOGLOBIN 96.5 % (94.0-97.0); BG PO2 103.9 mmHg (75.0-100.0); BG SAMPLE SITE RIGHT RADIAL; BG TIDAL VOLUME(mL) 500 mL; BG TOTAL HEMOGLOBIN 10.4 g/dL (12.0-18.0); BG VENT MODE VENT - A/C; BG VENT RATE 14 set
[2017-12-19] MEDS: PANTOPRAZOLE SODIUM 40 MG/VIAL IV SCH ×2 (09:21→22:05)
[2017-12-19] MEDS: HYDRALAZINE 20MG/ML VIAL IV PRN (09:43)
[2017-12-19 09:57] LABS: HEMATOCRIT. 27.4 % (36.0-48.0); HEMOGLOBIN. 8.8 g/dL (12.0-16.0); MEAN CORPUSCULAR HEMOGLOBIN 26.4 pg (28.0-32.0); MEAN PLATELET VOLUME 10.5 fl (7.4-10.4); PLATELET 108 x1000/uL (130-400); RED BLOOD CELL COUNT 3.35 mill/uL (4.2-5.4); RED CELL DISTRIBUTION WIDTH 18.9 % (11.6-14.6)
[2017-12-19 10:21] LABS: PHOSPHORUS 4.2 mg/dL (2.5-4.9)
[2017-12-19 10:42] LABS: PLATELET ESTIMATE DECREASED
[2017-12-19] MEDS: DEXT 5%/0.45% NACL 1000ML 1,000 ML IV SCH (14:10)
[2017-12-19] MEDS: MEROPENEM 500 MG in SODIUM CHLORIDE 0.9% 50 ML IV SCH (14:11)
[2017-12-19] MEDS: LATANOPROST 0.005% OPHTH DROPS 2.5ML EACHEYE SCH (22:05)
[2017-12-19] MEDS: CLONIDINE 0.2MG TABLET PO PRN (22:19)
[2017-12-20] VITALS (55 sets, daily range): BP systolic 127–207; BP diastolic 37–113
[2017-12-20] MEDS: BLOOD SUGAR DIAGNOSTIC STRIP TEST SCH ×4 (00:26→17:37)
[2017-12-20] MEDS: IPRATROPIUM/ALBUTEROL 0.5-3(2.5)MG/3ML NEB HHN SCH ×6 (00:37→20:53)
[2017-12-20] MEDS: INSULIN LISPRO 100 UNITS/ML SUBCUT SCH ×4 (00:39→18:52)
[2017-12-20] MEDS: HYDRALAZINE 20MG/ML VIAL IV SCH ×4 (00:43→18:11)
[2017-12-20] MEDS: METOCLOPRAMIDE HCL 10MG TABLET NG SCH ×4 (00:43→21:56)
[2017-12-20] MEDS: FENTANYL CITRATE/PF 500 MCG in SODIUM CHLORIDE 0.9% 40 ML IV PRN ×5 (01:05→22:25)
[2017-12-20 06:39] LABS: HEMATOCRIT. 24.9 % (36.0-48.0); HEMOGLOBIN. 8.1 g/dL (12.0-16.0); MEAN CORPUSCULAR HEMOGLOBIN 26.3 pg (28.0-32.0); MEAN CORPUSCULAR VOLUME 81.3 fL (81.0-99.0); MEAN PLATELET VOLUME 10.4 fl (7.4-10.4); PLATELET 107 x1000/uL (130-400); RED BLOOD CELL COUNT 3.07 mill/uL (4.2-5.4)
[2017-12-20 06:46] LABS: PHOSPHORUS 3.9 mg/dL (2.5-4.9)
[2017-12-20] MEDS: METHYLPREDNISOLONE SOD SUCC 40 MG/ML VIAL IV SCH ×2 (07:22→18:11)
[2017-12-20 08:00] LABS: BG BASE EXCESS 4.6 mmol/L (-2.0-2.0); BG CARBOXYHEMOGLOBIN 0.5 % (0.5-1.5); BG DEOXYHEMOGLOBIN 2.2 % (0.0-5.0); BG FRACTION INSPIRED OXYGEN 40; BG HCO3 ACT 30.2 mmol/L (22.0-26.0); BG METHEMOGLOBIN 0.1 % (0.0-1.5); BG OXYGEN SATURATION 97.8 % (92.0-98.5); BG OXYHEMOGLOBIN 97.2 % (94.0-97.0); BG PH 7.391 (7.350-7.450); BG PO2 119.5 mmHg (75.0-100.0); BG SAMPLE SITE RIGHT RADIAL; BG TIDAL VOLUME(mL) 500 mL; BG TOTAL HEMOGLOBIN 9.3 g/dL (12.0-18.0); BG VENT MODE VENT - A/C; BG VENT RATE 14 set
[2017-12-20 08:06] LABS: PLATELET ESTIMATE DECREASED
[2017-12-20] MEDS: PANTOPRAZOLE SODIUM 40 MG/VIAL IV SCH ×2 (09:31→21:49)
[2017-12-20] MEDS: MIDAZOLAM HCL 50 MG in DEXTROSE 5% WATER 40 ML IV PRN ×2 (09:43→22:23)
[2017-12-20] MEDS: DEXT 5%/0.45% NACL 1000ML 1,000 ML IV SCH (09:46)
[2017-12-20] MEDS ORDERED: LIDOCAINE HCL/PF 1% 2ML VIAL ONE (12:41)
[2017-12-20] MEDS: MEROPENEM 500 MG in SODIUM CHLORIDE 0.9% 50 ML IV SCH (15:10)
[2017-12-20] MEDS: CLONIDINE 0.2MG TABLET PO PRN (16:34)
[2017-12-20] MEDS: LATANOPROST 0.005% OPHTH DROPS 2.5ML EACHEYE SCH (21:49)
[2017-12-20] MEDS: HYDRALAZINE 20MG/ML VIAL IV PRN (21:58)
[2017-12-21] VITALS (35 sets, daily range): BP systolic 125–198; BP diastolic 44–81
[2017-12-21] MEDS: IPRATROPIUM/ALBUTEROL 0.5-3(2.5)MG/3ML NEB HHN SCH ×6 (00:21→21:03)
[2017-12-21] MEDS: HYDRALAZINE 20MG/ML VIAL IV SCH ×4 (01:05→18:51)
[2017-12-21] MEDS: CLONIDINE 0.2MG TABLET PO PRN (01:05)
[2017-12-21] MEDS: NITROGLYCERIN OINT 1GM/INCH UDPKT TD SCH ×4 (01:06→20:57)
[2017-12-21] MEDS: INSULIN LISPRO 100 UNITS/ML SUBCUT SCH ×4 (01:11→19:19)
[2017-12-21] MEDS: FENTANYL CITRATE/PF 1,000 MCG in SODIUM CHLORIDE 0.9% 80 ML IV PRN ×2 (01:12→18:03)
[2017-12-21] MEDS: MIDAZOLAM HCL 50 MG in DEXTROSE 5% WATER 40 ML IV PRN ×2 (01:12→18:04)
[2017-12-21] MEDS: METOCLOPRAMIDE HCL 10MG TABLET NG SCH ×3 (05:39→20:57)
[2017-12-21] MEDS: METHYLPREDNISOLONE SOD SUCC 40 MG/ML VIAL IV SCH ×2 (05:39→18:50)
[2017-12-21 05:59] LABS: HEMATOCRIT. 26.7 % (36.0-48.0); HEMOGLOBIN. 8.8 g/dL (12.0-16.0); MEAN CORPUSCULAR HEMOGLOBIN 26.8 pg (28.0-32.0); MEAN CORPUSCULAR VOLUME 81.5 fL (81.0-99.0); MEAN PLATELET VOLUME 10.4 fl (7.4-10.4); PLATELET 97 x1000/uL (130-400); RED BLOOD CELL COUNT 3.28 mill/uL (4.2-5.4); RED CELL DISTRIBUTION WIDTH 18.9 % (11.6-14.6)
[2017-12-21 06:07] LABS: CHLORIDE 102 mEq/L (98-107)
[2017-12-21] MEDS: BLOOD SUGAR DIAGNOSTIC STRIP TEST SCH ×4 (06:09→18:51)
[2017-12-21 06:17] LABS: PHOSPHORUS 3.7 mg/dL (2.5-4.9)
[2017-12-21 08:15] LABS: BG BASE EXCESS 4.3 mmol/L (-2.0-2.0); BG CARBOXYHEMOGLOBIN 0.9 % (0.5-1.5); BG FRACTION INSPIRED OXYGEN 40; BG HCO3 ACT 29.1 mmol/L (22.0-26.0); BG METHEMOGLOBIN 0.1 % (0.0-1.5); BG PCO2 44.8 mmHg (35.0-45.0); BG PO2 121.6 mmHg (75.0-100.0); BG SAMPLE SITE RIGHT RADIAL; BG TIDAL VOLUME(mL) 500 mL; BG TOTAL HEMOGLOBIN 8.6 g/dL (12.0-18.0); BG VENT MODE VENT - A/C; BG VENT RATE 14 set
[2017-12-21 09:22] LABS: PLATELET ESTIMATE DECREASED
[2017-12-21] MEDS: PANTOPRAZOLE SODIUM 40 MG/VIAL IV SCH ×2 (10:26→20:58)
[2017-12-21] MEDS ORDERED: ENOXAPARIN 30MG/0.3ML SYR SUBCUT SCH (11:30)
[2017-12-21] MEDS ORDERED: ENOXAPARIN 40MG/0.4ML SYR SUBCUT SCH (12:00)
[2017-12-21] MEDS ORDERED: VANCOMYCIN 2,000 MG in SODIUM CHLORIDE 0.9% 500 ML IV SCH (12:00)
[2017-12-21] MEDS: FUROSEMIDE 40MG/4ML VIAL IVP SCH (12:17)
[2017-12-21] MEDS: KCL 10MEQ/50ML PREMIX 50 ML IV SCH (12:17)
[2017-12-21] MEDS ORDERED: LIDOCAINE HCL/PF 1% 2ML VIAL ONE (14:13)
[2017-12-21 15:10] LABS: BG BASE EXCESS 4.8 mmol/L (-2.0-2.0); BG CARBOXYHEMOGLOBIN 0.4 % (0.5-1.5); BG DEOXYHEMOGLOBIN 2.5 % (0.0-5.0); BG FRACTION INSPIRED OXYGEN 40; BG HCO3 ACT 31.2 mmol/L (22.0-26.0); BG METHEMOGLOBIN 0.1 % (0.0-1.5); BG OXYGEN SATURATION 97.5 % (92.0-98.5); BG PCO2 56.2 mmHg (35.0-45.0); BG PH 7.362 (7.350-7.450); BG PO2 112.5 mmHg (75.0-100.0); BG PRESSURE SUPPORT 14; BG SAMPLE SITE RIGHT RADIAL; BG TIDAL VOLUME(mL) 500 mL; BG TOTAL HEMOGLOBIN 9.7 g/dL (12.0-18.0); BG VENT MODE VENT - SIMV; BG VENT RATE 10 set
[2017-12-21] MEDS: MEROPENEM 500 MG in SODIUM CHLORIDE 0.9% 50 ML IV SCH (17:08)
[2017-12-21] MEDS: DEXT 5%/0.45% NACL 1000ML 1,000 ML IV SCH ×2 (20:50→20:57)
[2017-12-21] MEDS: LATANOPROST 0.005% OPHTH DROPS 2.5ML EACHEYE SCH (20:58)
[2017-12-22] VITALS (39 sets, daily range): BP systolic 110–206; BP diastolic 41–92
[2017-12-22] MEDS: IPRATROPIUM/ALBUTEROL 0.5-3(2.5)MG/3ML NEB HHN SCH ×6 (00:35→20:08)
[2017-12-22] MEDS: INSULIN LISPRO 100 UNITS/ML SUBCUT SCH ×4 (00:42→17:07)
[2017-12-22] MEDS: BLOOD SUGAR DIAGNOSTIC STRIP TEST SCH ×4 (00:43→17:07)
[2017-12-22] MEDS: HYDRALAZINE 20MG/ML VIAL IV SCH ×5 (01:32→23:55)
[2017-12-22] MEDS: METOCLOPRAMIDE HCL 10MG TABLET NG SCH ×3 (06:03→20:42)
[2017-12-22] MEDS: METHYLPREDNISOLONE SOD SUCC 40 MG/ML VIAL IV SCH ×2 (06:03→17:02)
[2017-12-22] MEDS: NITROGLYCERIN OINT 1GM/INCH UDPKT TD SCH ×3 (06:04→20:42)
[2017-12-22 06:28] LABS: PHOSPHORUS 4.4 mg/dL (2.5-4.9)
[2017-12-22 06:43] LABS: HEMATOCRIT. 29.3 % (36.0-48.0); HEMOGLOBIN. 8.9 g/dL (12.0-16.0); MEAN CORPUSCULAR HEMOGLOBIN 26.2 pg (28.0-32.0); MEAN CORPUSCULAR VOLUME 85.8 fL (81.0-99.0); PLATELET 133 x1000/uL (130-400); RED BLOOD CELL COUNT 3.41 mill/uL (4.2-5.4)
[2017-12-22 07:48] LABS: BG BASE EXCESS 2.6 mmol/L (-2.0-2.0); BG CARBOXYHEMOGLOBIN 0.5 % (0.5-1.5); BG DEOXYHEMOGLOBIN 2.4 % (0.0-5.0); BG HCO3 ACT 29.3 mmol/L (22.0-26.0); BG METHEMOGLOBIN 0.2 % (0.0-1.5); BG OXYGEN SATURATION 97.6 % (92.0-98.5); BG OXYHEMOGLOBIN 96.9 % (94.0-97.0); BG PCO2 56.9 mmHg (35.0-45.0); BG PH 7.329 (7.350-7.450); BG PO2 115.2 mmHg (75.0-100.0); BG PRESSURE SUPPORT 16; BG SAMPLE SITE RIGHT RADIAL; BG TIDAL VOLUME(mL) 500 mL; BG TOTAL HEMOGLOBIN 9.1 g/dL (12.0-18.0); BG VENT MODE VENT - SIMV; BG VENT RATE 10 set
[2017-12-22] MEDS: PANTOPRAZOLE SODIUM 40 MG/VIAL IV SCH ×2 (08:59→20:43)
[2017-12-22] MEDS: KCL 10MEQ/50ML PREMIX 50 ML IV SCH (08:59)
[2017-12-22] MEDS: FUROSEMIDE 40MG/4ML VIAL IVP SCH ×2 (08:59→20:41)
[2017-12-22] MEDS ORDERED: LIDOCAINE HCL/PF 1% 2ML VIAL ONE (14:15)
[2017-12-22] MEDS: MEROPENEM 1,000 MG in SODIUM CHLORIDE 0.9% 100 ML IV SCH (16:59)
[2017-12-22 17:19] LABS: PLATELET ESTIMATE NORMAL
[2017-12-22] MEDS: LATANOPROST 0.005% OPHTH DROPS 2.5ML EACHEYE SCH (20:41)
[2017-12-22] MEDS: DEXT 5%/0.45% NACL 1000ML 1,000 ML IV SCH (20:50)
[2017-12-22] MEDS: FENTANYL CITRATE/PF 1,000 MCG in SODIUM CHLORIDE 0.9% 80 ML IV PRN (23:56)
[2017-12-22] MEDS: MIDAZOLAM HCL 50 MG in DEXTROSE 5% WATER 40 ML IV PRN (23:56)
[2017-12-23] VITALS (54 sets, daily range): BP systolic 98–189; BP diastolic 38–100
[2017-12-23] MEDS: INSULIN LISPRO 100 UNITS/ML SUBCUT SCH ×5 (00:01→23:41)
[2017-12-23] MEDS: BLOOD SUGAR DIAGNOSTIC STRIP TEST SCH ×5 (00:06→23:36)
[2017-12-23] MEDS: IPRATROPIUM/ALBUTEROL 0.5-3(2.5)MG/3ML NEB HHN SCH ×5 (03:26→20:36)
[2017-12-23] MEDS: NITROGLYCERIN OINT 1GM/INCH UDPKT TD SCH ×3 (05:37→21:09)
[2017-12-23] MEDS: METOCLOPRAMIDE HCL 10MG TABLET NG SCH ×3 (05:37→21:08)
[2017-12-23] MEDS: HYDRALAZINE 20MG/ML VIAL IV SCH ×3 (05:38→17:50)
[2017-12-23] MEDS: VANCOMYCIN 1500MG in DEXTROSE 5% WATER 250ML IV SCH (05:38)
[2017-12-23] MEDS: METHYLPREDNISOLONE SOD SUCC 40 MG/ML VIAL IV SCH ×2 (05:38→18:46)
[2017-12-23] MEDS: MEROPENEM 1,000 MG in SODIUM CHLORIDE 0.9% 100 ML IV SCH ×2 (05:38→17:14)
[2017-12-23 06:09] LABS: PHOSPHORUS 4.8 mg/dL (2.5-4.9)
[2017-12-23 08:24] LABS: BG CARBOXYHEMOGLOBIN 0.1 % (0.5-1.5); BG DEOXYHEMOGLOBIN 1.9 % (0.0-5.0); BG FRACTION INSPIRED OXYGEN 50; BG HCO3 ACT 30.9 mmol/L (22.0-26.0); BG METHEMOGLOBIN 0.3 % (0.0-1.5); BG OXYGEN SATURATION 98.1 % (92.0-98.5); BG OXYHEMOGLOBIN 97.7 % (94.0-97.0); BG PCO2 69.1 mmHg (35.0-45.0); BG PH 7.269 (7.350-7.450); BG PO2 139.2 mmHg (75.0-100.0); BG SAMPLE SITE LEFT RADIAL; BG TIDAL VOLUME(mL) 450 mL; BG TOTAL HEMOGLOBIN 9.2 g/dL (12.0-18.0); BG VENT MODE VENT - A/C; BG VENT RATE 16 set
[2017-12-23 08:34] LABS: HEMATOCRIT. 26.5 % (36.0-48.0); HEMOGLOBIN. 8.3 g/dL (12.0-16.0); MEAN CORPUSCULAR HEMOGLOBIN 26.1 pg (28.0-32.0); MEAN CORPUSCULAR VOLUME 83.4 fL (81.0-99.0); MEAN PLATELET VOLUME 10.3 fl (7.4-10.4); PLATELET 171 x1000/uL (130-400); RED BLOOD CELL COUNT 3.18 mill/uL (4.2-5.4); RED CELL DISTRIBUTION WIDTH 18.7 % (11.6-14.6)
[2017-12-23] MEDS: KCL 10MEQ/50ML PREMIX 50 ML IV SCH (08:49)
[2017-12-23] MEDS: FUROSEMIDE 40MG/4ML VIAL IVP SCH ×2 (08:49→21:08)
[2017-12-23] MEDS: PANTOPRAZOLE SODIUM 40 MG/VIAL IV SCH ×2 (08:49→21:09)
[2017-12-23 09:50] LABS: PLATELET ESTIMATE NORMAL
[2017-12-23] MEDS ORDERED: LIDOCAINE HCL/PF 1% 10 MG/ML 5ML VIAL ONE (10:31)
[2017-12-23] MEDS: MIDAZOLAM HCL 50 MG in DEXTROSE 5% WATER 40 ML IV PRN (14:25)
[2017-12-23] MEDS: FENTANYL CITRATE/PF 1,000 MCG in SODIUM CHLORIDE 0.9% 80 ML IV PRN (14:27)
[2017-12-23] MEDS: ENOXAPARIN 40MG/0.4ML SYR SUBCUT SCH (18:46)
[2017-12-23] MEDS: DEXT 5%/0.45% NACL 1000ML 1,000 ML IV SCH (18:52)
[2017-12-23] MEDS: LATANOPROST 0.005% OPHTH DROPS 2.5ML EACHEYE SCH (21:09)
[2017-12-24] VITALS (67 sets, daily range): BP systolic 114–225; BP diastolic 41–147
[2017-12-24] MEDS: IPRATROPIUM/ALBUTEROL 0.5-3(2.5)MG/3ML NEB HHN SCH ×6 (00:27→20:31)
[2017-12-24] MEDS: HYDRALAZINE 20MG/ML VIAL IV SCH ×4 (00:56→18:30)
[2017-12-24] MEDS: CLONIDINE 0.2MG TABLET PO PRN (02:00)
[2017-12-24] MEDS: MIDAZOLAM HCL 50 MG in DEXTROSE 5% WATER 40 ML IV PRN ×2 (02:37→16:14)
[2017-12-24] MEDS: MEROPENEM 1,000 MG in SODIUM CHLORIDE 0.9% 100 ML IV SCH (03:25)
[2017-12-24] MEDS: FENTANYL CITRATE/PF 1,000 MCG in SODIUM CHLORIDE 0.9% 80 ML IV PRN ×2 (05:11→18:32)
[2017-12-24] MEDS: METHYLPREDNISOLONE SOD SUCC 40 MG/ML VIAL IV SCH ×2 (05:25→18:30)
[2017-12-24] MEDS: METOCLOPRAMIDE HCL 10MG TABLET NG SCH ×3 (05:25→21:09)
[2017-12-24] MEDS: NITROGLYCERIN OINT 1GM/INCH UDPKT TD SCH ×3 (05:26→21:09)
[2017-12-24] MEDS: ENOXAPARIN 40MG/0.4ML SYR SUBCUT SCH ×2 (05:26→18:35)
[2017-12-24] MEDS: BLOOD SUGAR DIAGNOSTIC STRIP TEST SCH ×3 (05:35→18:32)
[2017-12-24] MEDS: INSULIN LISPRO 100 UNITS/ML SUBCUT SCH ×3 (05:45→18:32)
[2017-12-24 06:28] LABS: HEMATOCRIT. 23.3 % (36.0-48.0); HEMOGLOBIN. 7.3 g/dL (12.0-16.0); MEAN CORPUSCULAR HEMOGLOBIN 26.1 pg (28.0-32.0); MEAN CORPUSCULAR VOLUME 83.5 fL (81.0-99.0); MEAN PLATELET VOLUME 9.3 fl (7.4-10.4); PLATELET 132 x1000/uL (130-400); RED BLOOD CELL COUNT 2.79 mill/uL (4.2-5.4); RED CELL DISTRIBUTION WIDTH 18.1 % (11.6-14.6)
[2017-12-24 06:33] LABS: CHLORIDE 105 mEq/L (98-107)
[2017-12-24 06:43] LABS: PHOSPHORUS 3.5 mg/dL (2.5-4.9)
[2017-12-24 08:51] LABS: PLATELET ESTIMATE NORMAL
[2017-12-24 09:06] LABS: BG BASE EXCESS 2.5 mmol/L (-2.0-2.0); BG CARBOXYHEMOGLOBIN 0.6 % (0.5-1.5); BG FRACTION INSPIRED OXYGEN 40; BG HCO3 ACT 30.1 mmol/L (22.0-26.0); BG METHEMOGLOBIN 0.3 % (0.0-1.5); BG OXYHEMOGLOBIN 97.1 % (94.0-97.0); BG PCO2 64.7 mmHg (35.0-45.0); BG PH 7.285 (7.350-7.450); BG PO2 117.5 mmHg (75.0-100.0); BG SAMPLE SITE RIGHT RADIAL; BG TIDAL VOLUME(mL) 500 mL; BG TOTAL HEMOGLOBIN 9.1 g/dL (12.0-18.0); BG VENT MODE VENT - SIMV; BG VENT RATE 6 set
[2017-12-24 09:28] LABS: BG PRESSURE SUPPORT 14
[2017-12-24 11:51] LABS: PREALBUMIN 18.3 mg/dL (20.0-40.0)
[2017-12-24] MEDS: KCL 10MEQ/50ML PREMIX 50 ML IV SCH (13:33)
[2017-12-24] MEDS: FUROSEMIDE 40MG/4ML VIAL IVP SCH ×2 (13:33→21:09)
[2017-12-24] MEDS: PANTOPRAZOLE SODIUM 40 MG/VIAL IV SCH ×2 (13:36→21:08)
[2017-12-24] MEDS: VANCOMYCIN 1500MG in DEXTROSE 5% WATER 250ML IV SCH (15:24)
[2017-12-24] MEDS: DEXT 5%/0.45% NACL 1000ML 1,000 ML IV SCH (20:50)
[2017-12-24] MEDS: LATANOPROST 0.005% OPHTH DROPS 2.5ML EACHEYE SCH (21:09)
[2017-12-25] VITALS (55 sets, daily range): BP systolic 104–197; BP diastolic 41–90
[2017-12-25] MEDS: HYDRALAZINE 20MG/ML VIAL IV SCH ×5 (00:08→23:30)
[2017-12-25] MEDS: BLOOD SUGAR DIAGNOSTIC STRIP TEST SCH ×5 (00:14→23:39)
[2017-12-25] MEDS: INSULIN LISPRO 100 UNITS/ML SUBCUT SCH ×5 (00:19→23:44)
[2017-12-25] MEDS: IPRATROPIUM/ALBUTEROL 0.5-3(2.5)MG/3ML NEB HHN SCH ×6 (00:24→20:34)
[2017-12-25] MEDS: MIDAZOLAM HCL 50 MG in DEXTROSE 5% WATER 40 ML IV PRN ×2 (04:57→19:22)
[2017-12-25] MEDS: ENOXAPARIN 40MG/0.4ML SYR SUBCUT SCH (05:02)
[2017-12-25] MEDS: NITROGLYCERIN OINT 1GM/INCH UDPKT TD SCH ×3 (05:02→21:04)
[2017-12-25] MEDS: METHYLPREDNISOLONE SOD SUCC 40 MG/ML VIAL IV SCH ×2 (05:02→18:42)
[2017-12-25] MEDS: METOCLOPRAMIDE HCL 10MG TABLET NG SCH ×3 (05:03→21:04)
[2017-12-25 05:44] LABS: HEMATOCRIT. 28.5 % (36.0-48.0); HEMOGLOBIN. 9.1 g/dL (12.0-16.0); MEAN CORPUSCULAR HEMOGLOBIN 26.5 pg (28.0-32.0); MEAN CORPUSCULAR VOLUME 82.8 fL (81.0-99.0); MEAN PLATELET VOLUME 10.2 fl (7.4-10.4); PLATELET 183 x1000/uL (130-400); RED BLOOD CELL COUNT 3.45 mill/uL (4.2-5.4); RED CELL DISTRIBUTION WIDTH 17.6 % (11.6-14.6)
[2017-12-25 06:19] LABS: PHOSPHORUS 2.8 mg/dL (2.5-4.9)
[2017-12-25] MEDS: FENTANYL CITRATE/PF 1,000 MCG in SODIUM CHLORIDE 0.9% 80 ML IV PRN ×2 (06:47→22:14)
[2017-12-25 08:33] LABS: BG BASE EXCESS 2.4 mmol/L (-2.0-2.0); BG CARBOXYHEMOGLOBIN 1.1 % (0.5-1.5); BG DEOXYHEMOGLOBIN 2.1 % (0.0-5.0); BG FRACTION INSPIRED OXYGEN 40; BG HCO3 ACT 29.5 mmol/L (22.0-26.0); BG METHEMOGLOBIN 0.1 % (0.0-1.5); BG OXYGEN SATURATION 97.9 % (92.0-98.5); BG OXYHEMOGLOBIN 96.7 % (94.0-97.0); BG PCO2 63.1 mmHg (35.0-45.0); BG PH 7.288 (7.350-7.450); BG PO2 130.6 mmHg (75.0-100.0); BG PRESSURE SUPPORT 14; BG SAMPLE SITE RIGHT RADIAL; BG TIDAL VOLUME(mL) 500 mL; BG TOTAL HEMOGLOBIN 7.6 g/dL (12.0-18.0); BG VENT MODE VENT - SIMV; BG VENT RATE 6 set
[2017-12-25] MEDS: FUROSEMIDE 40MG/4ML VIAL IVP SCH ×2 (10:22→21:00)
[2017-12-25] MEDS: KCL 10MEQ/50ML PREMIX 50 ML IV SCH (10:22)
[2017-12-25] MEDS: PANTOPRAZOLE SODIUM 40 MG/VIAL IV SCH ×2 (10:22→21:00)
[2017-12-25 13:57] LABS: PLATELET ESTIMATE NORMAL
[2017-12-25 19:22] LABS: HEMOGLOBIN 5.6 g/dL (12.0-16.0)
[2017-12-25 19:23] LABS: HEMATOCRIT 17.8 % (36.0-48.0)
[2017-12-25] MEDS: LATANOPROST 0.005% OPHTH DROPS 2.5ML EACHEYE SCH (21:00)
[2017-12-26] VITALS (56 sets, daily range): BP systolic 96–201; BP diastolic 30–93
[2017-12-26] MEDS: IPRATROPIUM/ALBUTEROL 0.5-3(2.5)MG/3ML NEB HHN SCH ×6 (00:52→20:25)
[2017-12-26] MEDS: HYDRALAZINE 20MG/ML VIAL IV SCH ×4 (05:07→23:52)
[2017-12-26] MEDS: METOCLOPRAMIDE HCL 10MG TABLET NG SCH ×3 (05:07→22:08)
[2017-12-26] MEDS: METHYLPREDNISOLONE SOD SUCC 40 MG/ML VIAL IV SCH ×2 (05:07→17:09)
[2017-12-26] MEDS: NITROGLYCERIN OINT 1GM/INCH UDPKT TD SCH ×3 (05:08→22:08)
[2017-12-26] MEDS: BLOOD SUGAR DIAGNOSTIC STRIP TEST SCH ×4 (05:21→23:52)
[2017-12-26] MEDS: INSULIN LISPRO 100 UNITS/ML SUBCUT SCH ×4 (05:27→23:57)
[2017-12-26] MEDS: MIDAZOLAM HCL 50 MG in DEXTROSE 5% WATER 40 ML IV PRN ×2 (06:05→17:23)
[2017-12-26 06:23] LABS: BASOPHILS % 0.2 % (0.0-2.0); EOSINOPHILS % 0.1 % (0.0-5.0); HEMATOCRIT. 25.2 % (36.0-48.0); HEMOGLOBIN. 8.4 g/dL (12.0-16.0); LYMPHOCYTES % 7.1 % (20.0-50.0); MEAN CORPUSCULAR HEMOGLOBIN 27.3 pg (28.0-32.0); MEAN CORPUSCULAR VOLUME 82.3 fL (81.0-99.0); MEAN PLATELET VOLUME 10.1 fl (7.4-10.4); NEUTROPHILS % 87.6 % (40.0-76.0); PLATELET 112 x1000/uL (130-400); RED BLOOD CELL COUNT 3.06 mill/uL (4.2-5.4); RED CELL DISTRIBUTION WIDTH 17.7 % (11.6-14.6)
[2017-12-26] MEDS: PANTOPRAZOLE SODIUM 40 MG/VIAL IV SCH ×2 (08:29→20:21)
[2017-12-26] MEDS: FUROSEMIDE 40MG/4ML VIAL IVP SCH ×2 (08:30→20:21)
[2017-12-26] MEDS: KCL 10MEQ/50ML PREMIX 50 ML IV SCH (08:30)
[2017-12-26] MEDS: DEXT 5%/0.45% NACL 1000ML 1,000 ML IV SCH ×2 (08:32→21:33)
[2017-12-26 13:52] LABS: BG BASE EXCESS -0.8 mmol/L (-2.0-2.0); BG CARBOXYHEMOGLOBIN 1.1 % (0.5-1.5); BG DEOXYHEMOGLOBIN 2.4 % (0.0-5.0); BG FRACTION INSPIRED OXYGEN 35; BG HCO3 ACT 24.9 mmol/L (22.0-26.0); BG METHEMOGLOBIN 0.2 % (0.0-1.5); BG OXYGEN SATURATION 97.6 % (92.0-98.5); BG OXYHEMOGLOBIN 96.3 % (94.0-97.0); BG PH 7.352 (7.350-7.450); BG PO2 99.7 mmHg (75.0-100.0); BG PRESSURE SUPPORT 14; BG SAMPLE SITE RIGHT RADIAL; BG TIDAL VOLUME(mL) 500 mL; BG VENT MODE VENT - SIMV; BG VENT RATE 10 set
[2017-12-26 14:52] LABS: CLARITY URINE TURBID (CLEAR); COLOR URINE YELLOW (YELLOW); KETONES URINE TRACE (NEGATIVE); LEUKOCYTE ESTERASE URINE 2+ (NEGATIVE); NITRITE URINE NEGATIVE (NEGATIVE); OCCULT BLOOD URINE 1+ (NEGATIVE); PROTEIN URINE 3+ (NEGATIVE); SPECIFIC GRAVITY URINE 1.022 (1.005-1.030)
[2017-12-26 16:23] LABS: HEMOGLOBIN 7.4 g/dL (12.0-16.0); MEAN CORPUSCULAR VOLUME 83.8 fL (81.0-99.0); PLATELET 120 x1000/uL (130-400); RED BLOOD CELL COUNT 2.74 mill/uL (4.2-5.4); RED CELL DISTRIBUTION WIDTH 17.8 % (11.6-14.6)
[2017-12-26] MEDS: LATANOPROST 0.005% OPHTH DROPS 2.5ML EACHEYE SCH (20:21)
[2017-12-26] MEDS: FENTANYL CITRATE/PF 500 MCG in SODIUM CHLORIDE 0.9% 40 ML IV PRN (21:34)
[2017-12-27] VITALS (49 sets, daily range): BP systolic 110–222; BP diastolic 45–147
[2017-12-27] MEDS: IPRATROPIUM/ALBUTEROL 0.5-3(2.5)MG/3ML NEB HHN SCH ×7 (00:37→23:42)
[2017-12-27 01:18] LABS: HEMATOCRIT 29.5 % (36.0-48.0); HEMOGLOBIN 9.7 g/dL (12.0-16.0)
[2017-12-27] MEDS: FENTANYL CITRATE/PF 500 MCG in SODIUM CHLORIDE 0.9% 40 ML IV PRN ×3 (02:19→19:24)
[2017-12-27 05:01] LABS: BASOPHILS % 0.1 % (0.0-2.0); EOSINOPHILS % 0.2 % (0.0-5.0); HEMATOCRIT. 25.9 % (36.0-48.0); HEMOGLOBIN. 8.6 g/dL (12.0-16.0); LYMPHOCYTES % 7.4 % (20.0-50.0); MEAN CORPUSCULAR HEMOGLOBIN 28.1 pg (28.0-32.0); MEAN CORPUSCULAR VOLUME 84.4 fL (81.0-99.0); MEAN PLATELET VOLUME 10.2 fl (7.4-10.4); MONOCYTES % 5.3 % (2.0-8.0); PLATELET 123 x1000/uL (130-400); RED BLOOD CELL COUNT 3.07 mill/uL (4.2-5.4)
[2017-12-27] MEDS: HYDRALAZINE 20MG/ML VIAL IV SCH ×3 (05:14→18:21)
[2017-12-27 05:27] LABS: PHOSPHORUS 2.5 mg/dL (2.5-4.9)
[2017-12-27] MEDS: NITROGLYCERIN OINT 1GM/INCH UDPKT TD SCH ×3 (05:37→21:42)
[2017-12-27] MEDS: BLOOD SUGAR DIAGNOSTIC STRIP TEST SCH ×3 (05:37→18:00)
[2017-12-27] MEDS: METOCLOPRAMIDE HCL 10MG TABLET NG SCH ×3 (05:37→21:42)
[2017-12-27] MEDS: METHYLPREDNISOLONE SOD SUCC 40 MG/ML VIAL IV SCH ×2 (05:37→18:21)
[2017-12-27] MEDS: INSULIN LISPRO 100 UNITS/ML SUBCUT SCH ×3 (05:51→19:08)
[2017-12-27] MEDS: MIDAZOLAM HCL 50 MG in DEXTROSE 5% WATER 40 ML IV PRN ×2 (06:52→14:54)
[2017-12-27 08:56] LABS: BG BASE EXCESS -1.2 mmol/L (-2.0-2.0); BG CARBOXYHEMOGLOBIN 0.3 % (0.5-1.5); BG DEOXYHEMOGLOBIN 4.2 % (0.0-5.0); BG FRACTION INSPIRED OXYGEN 35; BG METHEMOGLOBIN 0.1 % (0.0-1.5); BG OXYGEN SATURATION 95.8 % (92.0-98.5); BG OXYHEMOGLOBIN 95.4 % (94.0-97.0); BG PCO2 56.7 mmHg (35.0-45.0); BG PO2 87.1 mmHg (75.0-100.0); BG PRESSURE SUPPORT 14; BG SAMPLE SITE RIGHT RADIAL; BG TIDAL VOLUME(mL) 500 mL; BG TOTAL HEMOGLOBIN 10.2 g/dL (12.0-18.0); BG VENT MODE VENT - SIMV; BG VENT RATE 10 set
[2017-12-27] MEDS: FUROSEMIDE 40MG/4ML VIAL IVP SCH ×2 (11:32→20:28)
[2017-12-27] MEDS: PANTOPRAZOLE SODIUM 40 MG/VIAL IV SCH ×2 (11:32→21:42)
[2017-12-27] MEDS: KCL 10MEQ/50ML PREMIX 50 ML IV SCH (11:33)
[2017-12-27 15:26] LABS: BG BASE EXCESS -1.5 mmol/L (-2.0-2.0); BG DEOXYHEMOGLOBIN 2.9 % (0.0-5.0); BG FRACTION INSPIRED OXYGEN 35; BG HCO3 ACT 24.4 mmol/L (22.0-26.0); BG METHEMOGLOBIN 0.3 % (0.0-1.5); BG OXYGEN SATURATION 97.1 % (92.0-98.5); BG OXYHEMOGLOBIN 95.8 % (94.0-97.0); BG PH 7.333 (7.350-7.450); BG PO2 102.1 mmHg (75.0-100.0); BG PRESSURE SUPPORT 14; BG SAMPLE SITE RIGHT RADIAL; BG TIDAL VOLUME(mL) 500 mL; BG TOTAL HEMOGLOBIN 8.8 g/dL (12.0-18.0); BG VENT MODE VENT - SIMV; BG VENT RATE 12 set
[2017-12-27] MEDS ORDERED: VANCOMYCIN 1250MG in DEXTROSE 5% WATER 250ML IV NR (16:00)
[2017-12-27 16:20] LABS: HEMATOCRIT 27.7 % (36.0-48.0); HEMOGLOBIN 9.2 g/dL (12.0-16.0); MEAN CORPUSCULAR HEMOGLOBIN 28.3 pg (28.0-32.0); MEAN CORPUSCULAR VOLUME 85.6 fL (81.0-99.0); PLATELET 123 x1000/uL (130-400); RED BLOOD CELL COUNT 3.23 mill/uL (4.2-5.4); RED CELL DISTRIBUTION WIDTH 17.2 % (11.6-14.6)
[2017-12-27] MEDS: LATANOPROST 0.005% OPHTH DROPS 2.5ML EACHEYE SCH (20:29)
[2017-12-27] MEDS: DEXT 5%/0.45% NACL 1000ML 1,000 ML IV SCH (20:36)
[2017-12-28] VITALS (45 sets, daily range): BP systolic 116–217; BP diastolic 39–82
[2017-12-28] MEDS: BLOOD SUGAR DIAGNOSTIC STRIP TEST SCH ×4 (00:15→18:20)
[2017-12-28] MEDS: HYDRALAZINE 20MG/ML VIAL IV SCH ×4 (00:15→18:20)
[2017-12-28] MEDS: INSULIN LISPRO 100 UNITS/ML SUBCUT SCH ×4 (00:21→18:54)
[2017-12-28] MEDS: MIDAZOLAM HCL 50 MG in DEXTROSE 5% WATER 40 ML IV PRN ×2 (02:10→14:40)
[2017-12-28] MEDS: FENTANYL CITRATE/PF 500 MCG in SODIUM CHLORIDE 0.9% 40 ML IV PRN ×2 (03:11→14:39)
[2017-12-28] MEDS: IPRATROPIUM/ALBUTEROL 0.5-3(2.5)MG/3ML NEB HHN SCH ×5 (03:51→20:11)
[2017-12-28] MEDS: METOCLOPRAMIDE HCL 10MG TABLET NG SCH ×3 (05:24→20:54)
[2017-12-28] MEDS: METHYLPREDNISOLONE SOD SUCC 40 MG/ML VIAL IV SCH ×2 (05:24→18:20)
[2017-12-28] MEDS: NITROGLYCERIN OINT 1GM/INCH UDPKT TD SCH ×3 (05:25→20:53)
[2017-12-28 06:26] LABS: BASOPHILS % 0.3 % (0.0-2.0); EOSINOPHILS % 0.2 % (0.0-5.0); HEMATOCRIT. 24.6 % (36.0-48.0); HEMOGLOBIN. 7.9 g/dL (12.0-16.0); LYMPHOCYTES % 8.3 % (20.0-50.0); MEAN CORPUSCULAR HEMOGLOBIN 27.6 pg (28.0-32.0); MEAN CORPUSCULAR VOLUME 86.2 fL (81.0-99.0); MEAN PLATELET VOLUME 10.3 fl (7.4-10.4); MONOCYTES % 5.8 % (2.0-8.0); NEUTROPHILS % 85.4 % (40.0-76.0); PLATELET 109 x1000/uL (130-400); RED BLOOD CELL COUNT 2.85 mill/uL (4.2-5.4); RED CELL DISTRIBUTION WIDTH 17.1 % (11.6-14.6)
[2017-12-28 06:34] LABS: CHLORIDE 115 mEq/L (98-107)
[2017-12-28 06:36] LABS: INR 1.1; PROTHROMBIN TIME 11.2 sec (9.4-11.6)
[2017-12-28 06:42] LABS: PHOSPHORUS 2.3 mg/dL (2.5-4.9)
[2017-12-28] MEDS: KCL 10MEQ/50ML PREMIX 50 ML IV SCH (09:35)
[2017-12-28] MEDS: FUROSEMIDE 40MG/4ML VIAL IVP SCH ×2 (09:35→20:53)
[2017-12-28] MEDS: PANTOPRAZOLE SODIUM 40 MG/VIAL IV SCH ×2 (09:35→20:53)
[2017-12-28 14:27] LABS: BG BASE EXCESS 0.7 mmol/L (-2.0-2.0); BG CARBOXYHEMOGLOBIN 0.6 % (0.5-1.5); BG DEOXYHEMOGLOBIN 1.2 % (0.0-5.0); BG FRACTION INSPIRED OXYGEN 35; BG HCO3 ACT 25.8 mmol/L (22.0-26.0); BG METHEMOGLOBIN 0.1 % (0.0-1.5); BG OXYGEN SATURATION 98.8 % (92.0-98.5); BG OXYHEMOGLOBIN 98.1 % (94.0-97.0); BG PCO2 43.7 mmHg (35.0-45.0); BG PH 7.389 (7.350-7.450); BG PO2 193.3 mmHg (75.0-100.0); BG SAMPLE SITE RIGHT RADIAL; BG TIDAL VOLUME(mL) 500 mL; BG TOTAL HEMOGLOBIN 9.7 g/dL (12.0-18.0); BG VENT MODE VENT - A/C; BG VENT RATE 12 set
[2017-12-28 16:11] LABS: HEMATOCRIT 27.9 % (36.0-48.0); HEMOGLOBIN 9.2 g/dL (12.0-16.0)
[2017-12-28 19:07] LABS: HEMOGLOBIN 8.3 g/dL (12.0-16.0)
[2017-12-28] MEDS: LATANOPROST 0.005% OPHTH DROPS 2.5ML EACHEYE SCH (20:54)
[2017-12-29] VITALS (77 sets, daily range): BP systolic 102–220; BP diastolic 36–121
[2017-12-29] MEDS: FENTANYL CITRATE/PF 500 MCG in SODIUM CHLORIDE 0.9% 40 ML IV PRN ×3 (00:05→14:17)
[2017-12-29] MEDS: IPRATROPIUM/ALBUTEROL 0.5-3(2.5)MG/3ML NEB HHN SCH ×6 (00:12→20:22)
[2017-12-29] MEDS: SODIUM CHLORIDE 0.45% 1,000 ML IV SCH ×2 (00:12→21:51)
[2017-12-29 00:35] LABS: HEMATOCRIT 27.6 % (36.0-48.0); HEMOGLOBIN 9.3 g/dL (12.0-16.0)
[2017-12-29] MEDS: HYDRALAZINE 20MG/ML VIAL IV SCH ×4 (01:34→17:28)
[2017-12-29] MEDS: MIDAZOLAM HCL 50 MG in DEXTROSE 5% WATER 40 ML IV PRN ×2 (02:00→13:37)
[2017-12-29] MEDS: BLOOD SUGAR DIAGNOSTIC STRIP TEST SCH ×4 (06:00→17:20)
[2017-12-29] MEDS: METHYLPREDNISOLONE SOD SUCC 40 MG/ML VIAL IV SCH ×2 (06:00→09:40)
[2017-12-29] MEDS: NITROGLYCERIN OINT 1GM/INCH UDPKT TD SCH ×3 (06:00→21:49)
[2017-12-29] MEDS: INSULIN LISPRO 100 UNITS/ML SUBCUT SCH ×4 (06:00→17:29)
[2017-12-29] MEDS: METOCLOPRAMIDE HCL 10MG TABLET NG SCH ×3 (06:00→21:49)
[2017-12-29 07:15] LABS: CHLORIDE 114 mEq/L (98-107)
[2017-12-29 07:23] LABS: PHOSPHORUS 2.6 mg/dL (2.5-4.9)
[2017-12-29] MEDS: PANTOPRAZOLE SODIUM 40 MG/VIAL IV SCH ×2 (09:40→21:49)
[2017-12-29] MEDS: KCL 10MEQ/50ML PREMIX 50 ML IV SCH (09:40)
[2017-12-29] MEDS: FUROSEMIDE 40MG/4ML VIAL IVP SCH ×2 (09:40→21:50)
[2017-12-29] MEDS ORDERED: VANCOMYCIN 750 MG PREMIX 150 ML IV SCH (13:00)
[2017-12-29 14:23] LABS: HEMATOCRIT. 25.4 % (36.0-48.0); HEMOGLOBIN. 8.7 g/dL (12.0-16.0); MEAN CORPUSCULAR HEMOGLOBIN 28.7 pg (28.0-32.0); MEAN CORPUSCULAR VOLUME 84.3 fL (81.0-99.0); MEAN PLATELET VOLUME 10.4 fl (7.4-10.4); PLATELET 101 x1000/uL (130-400); RED BLOOD CELL COUNT 3.01 mill/uL (4.2-5.4); RED CELL DISTRIBUTION WIDTH 16.8 % (11.6-14.6)
[2017-12-29 15:29] LABS: PLATELET ESTIMATE DECREASED
[2017-12-29] MEDS: CLONIDINE 0.2MG TABLET PO PRN ×2 (17:30→19:57)
[2017-12-29] MEDS: LATANOPROST 0.005% OPHTH DROPS 2.5ML EACHEYE SCH (21:50)
[2017-12-30] VITALS (69 sets, daily range): BP systolic 102–204; BP diastolic 41–149
[2017-12-30] MEDS: IPRATROPIUM/ALBUTEROL 0.5-3(2.5)MG/3ML NEB HHN SCH ×6 (00:11→20:49)
[2017-12-30] MEDS: HYDRALAZINE 20MG/ML VIAL IV SCH ×4 (00:47→19:07)
[2017-12-30] MEDS: MIDAZOLAM HCL 50 MG in DEXTROSE 5% WATER 40 ML IV PRN ×3 (00:49→21:49)
[2017-12-30] MEDS: NITROGLYCERIN OINT 1GM/INCH UDPKT TD SCH ×3 (06:00→21:43)
[2017-12-30] MEDS: BLOOD SUGAR DIAGNOSTIC STRIP TEST SCH ×3 (06:00→12:00)
[2017-12-30] MEDS: INSULIN LISPRO 100 UNITS/ML SUBCUT SCH ×4 (06:00→19:07)
[2017-12-30] MEDS: METOCLOPRAMIDE HCL 10MG TABLET NG SCH ×3 (06:00→21:42)
[2017-12-30 06:58] LABS: BASOPHILS % 0.5 % (0.0-2.0); EOSINOPHILS % 0.7 % (0.0-5.0); HEMATOCRIT. 23.1 % (36.0-48.0); HEMOGLOBIN. 7.9 g/dL (12.0-16.0); LYMPHOCYTES % 14.5 % (20.0-50.0); MEAN CORPUSCULAR VOLUME 84.4 fL (81.0-99.0); NEUTROPHILS % 78.3 % (40.0-76.0); PLATELET 95 x1000/uL (130-400); RED BLOOD CELL COUNT 2.73 mill/uL (4.2-5.4); RED CELL DISTRIBUTION WIDTH 16.7 % (11.6-14.6)
[2017-12-30 07:08] LABS: INR 1.1; PARTIAL THROMBOPLASTIN TIME 22.6 sec (23.4-31.0)
[2017-12-30] MEDS: FENTANYL CITRATE/PF 500 MCG in SODIUM CHLORIDE 0.9% 40 ML IV PRN ×2 (07:50→21:45)
[2017-12-30 07:54] LABS: PHOSPHORUS 2.5 mg/dL (2.5-4.9)
[2017-12-30] MEDS: KCL 10MEQ/50ML PREMIX 50 ML IV SCH (10:21)
[2017-12-30] MEDS: FUROSEMIDE 40MG/4ML VIAL IVP SCH ×2 (10:42→21:42)
[2017-12-30] MEDS: METHYLPREDNISOLONE SOD SUCC 40 MG/ML VIAL IV SCH (10:42)
[2017-12-30] MEDS: PANTOPRAZOLE SODIUM 40 MG/VIAL IV SCH ×2 (10:42→21:42)
[2017-12-30] MEDS ORDERED: MIDAZOLAM HCL 5 MG/5 ML VIAL ONE (12:00)
[2017-12-30] MEDS ORDERED: FENTANYL CITRATE/PF 50MCG/ML 2ML VIAL ONE (12:00)
[2017-12-30] MEDS ORDERED: MIDAZOLAM HCL 5 MG/5 ML VIAL IV PRN (12:21)
[2017-12-30] MEDS ORDERED: SODIUM CHLORIDE 0.9% 10ML VIAL ONE (13:52)
[2017-12-30] MEDS ORDERED: VANCOMYCIN 500 MG PREMIX 100 ML IV SCH (14:00)
[2017-12-30] MEDS: SODIUM CHLORIDE 0.45% 1,000 ML IV SCH (15:00)
[2017-12-30] MEDS: LATANOPROST 0.005% OPHTH DROPS 2.5ML EACHEYE SCH (21:42)
[2017-12-31] VITALS (89 sets, daily range): BP systolic 107–202; BP diastolic 29–117
[2017-12-31] MEDS ORDERED: IPRATROPIUM BROMIDE (0.02%) 0.5MG/2.5ML NEB ONE (00:38)
[2017-12-31] MEDS ORDERED: ALBUTEROL (0.083%) 2.5MG/3ML NEB ONE (00:38)
[2017-12-31] MEDS: HYDRALAZINE 20MG/ML VIAL IV SCH ×4 (00:57→18:00)
[2017-12-31] MEDS: BLOOD SUGAR DIAGNOSTIC STRIP TEST SCH ×4 (00:57→18:44)
[2017-12-31] MEDS: INSULIN LISPRO 100 UNITS/ML SUBCUT SCH ×4 (01:08→18:43)
[2017-12-31] MEDS: IPRATROPIUM/ALBUTEROL 0.5-3(2.5)MG/3ML NEB HHN SCH ×4 (04:32→20:14)
[2017-12-31] MEDS: METOCLOPRAMIDE HCL 10MG TABLET NG SCH ×3 (05:45→21:26)
[2017-12-31] MEDS: NITROGLYCERIN OINT 1GM/INCH UDPKT TD SCH ×3 (05:45→21:25)
[2017-12-31] MEDS: MIDAZOLAM HCL 50 MG in DEXTROSE 5% WATER 40 ML IV PRN (05:47)
[2017-12-31] MEDS: FENTANYL CITRATE/PF 500 MCG in SODIUM CHLORIDE 0.9% 40 ML IV PRN (05:48)
[2017-12-31 06:36] LABS: BASOPHILS % 0.2 % (0.0-2.0); EOSINOPHILS % 0.8 % (0.0-5.0); HEMATOCRIT. 23.1 % (36.0-48.0); HEMOGLOBIN. 7.6 g/dL (12.0-16.0); LYMPHOCYTES % 14.9 % (20.0-50.0); MEAN CORPUSCULAR HEMOGLOBIN 28.1 pg (28.0-32.0); MEAN PLATELET VOLUME 10.8 fl (7.4-10.4); MONOCYTES % 6.6 % (2.0-8.0); NEUTROPHILS % 77.5 % (40.0-76.0); PLATELET 70 x1000/uL (130-400); RED BLOOD CELL COUNT 2.72 mill/uL (4.2-5.4); RED CELL DISTRIBUTION WIDTH 16.6 % (11.6-14.6)
[2017-12-31 06:44] LABS: PHOSPHORUS 3.1 mg/dL (2.5-4.9)
[2017-12-31] MEDS: PANTOPRAZOLE SODIUM 40 MG/VIAL IV SCH ×2 (09:14→21:25)
[2017-12-31] MEDS: METHYLPREDNISOLONE SOD SUCC 40 MG/ML VIAL IV SCH (09:14)
[2017-12-31] MEDS: KCL 10MEQ/50ML PREMIX 50 ML IV SCH (09:14)
[2017-12-31] MEDS: FUROSEMIDE 40MG/4ML VIAL IVP SCH ×2 (09:14→21:25)
[2017-12-31] MEDS: SODIUM CHLORIDE 0.45% 1,000 ML IV SCH (11:43)
[2017-12-31] MEDS: CLONIDINE 0.2MG TABLET PO PRN (13:51)
[2017-12-31] MEDS ORDERED: VANCOMYCIN 500 MG PREMIX 100 ML IV SCH (18:00)
[2017-12-31] MEDS: LORAZEPAM 2MG/ML CPJ IM PRN (18:33)
[2017-12-31 20:44] LABS: BG BASE EXCESS 0.5 mmol/L (-2.0-2.0); BG CARBOXYHEMOGLOBIN 0.3 % (0.5-1.5); BG DEOXYHEMOGLOBIN 1.5 % (0.0-5.0); BG FRACTION INSPIRED OXYGEN 35; BG METHEMOGLOBIN 0.2 % (0.0-1.5); BG OXYGEN SATURATION 98.5 % (92.0-98.5); BG PCO2 24.3 mmHg (35.0-45.0); BG PH 7.575 (7.350-7.450); BG PO2 161.9 mmHg (75.0-100.0); BG PRESSURE SUPPORT 10; BG SAMPLE SITE LEFT RADIAL; BG TIDAL VOLUME(mL) 500 mL; BG VENT MODE VENT - SIMV; BG VENT RATE 10 set
[2017-12-31] MEDS: LATANOPROST 0.005% OPHTH DROPS 2.5ML EACHEYE SCH (21:26)
[2017-12-31 23:20] LABS: HEMATOCRIT 20.2 % (36.0-48.0); HEMOGLOBIN 6.8 g/dL (12.0-16.0)
[2018-01-01] VITALS (83 sets, daily range): BP systolic 86–171; BP diastolic 36–127
[2018-01-01] MEDS: IPRATROPIUM/ALBUTEROL 0.5-3(2.5)MG/3ML NEB HHN SCH ×6 (00:26→16:25)
[2018-01-01] MEDS: INSULIN LISPRO 100 UNITS/ML SUBCUT SCH ×4 (04:52→17:55)
[2018-01-01] MEDS: NITROGLYCERIN OINT 1GM/INCH UDPKT TD SCH (05:29)
[2018-01-01] MEDS: METOCLOPRAMIDE HCL 10MG TABLET NG SCH ×3 (05:29→21:16)
[2018-01-01] MEDS: LORAZEPAM 2MG/ML CPJ IM PRN (05:30)
[2018-01-01] MEDS: HYDRALAZINE 20MG/ML VIAL IV SCH ×4 (05:33→17:53)
[2018-01-01] MEDS: BLOOD SUGAR DIAGNOSTIC STRIP TEST SCH ×4 (05:42→17:53)
[2018-01-01 08:13] LABS: BG BASE EXCESS 1.3 mmol/L (-2.0-2.0); BG CARBOXYHEMOGLOBIN 0.4 % (0.5-1.5); BG DEOXYHEMOGLOBIN 1.6 % (0.0-5.0); BG FRACTION INSPIRED OXYGEN 30; BG HCO3 ACT 25.1 mmol/L (22.0-26.0); BG METHEMOGLOBIN 0.4 % (0.0-1.5); BG OXYGEN SATURATION 98.4 % (92.0-98.5); BG OXYHEMOGLOBIN 97.6 % (94.0-97.0); BG PCO2 36.5 mmHg (35.0-45.0); BG PH 7.456 (7.350-7.450); BG PO2 137.7 mmHg (75.0-100.0); BG PRESSURE SUPPORT 10; BG SAMPLE SITE LEFT RADIAL; BG TIDAL VOLUME(mL) 450 mL; BG TOTAL HEMOGLOBIN 8.4 g/dL (12.0-18.0); BG VENT MODE VENT - SIMV; BG VENT RATE 10 set
[2018-01-01] MEDS: FUROSEMIDE 40MG/4ML VIAL IVP SCH ×2 (09:09→21:16)
[2018-01-01] MEDS: KCL 10MEQ/50ML PREMIX 50 ML IV SCH (09:09)
[2018-01-01] MEDS: METHYLPREDNISOLONE SOD SUCC 40 MG/ML VIAL IV SCH (09:09)
[2018-01-01] MEDS: PANTOPRAZOLE SODIUM 40 MG/VIAL IV SCH ×2 (09:10→21:16)
[2018-01-01] MEDS: SODIUM CHLORIDE 0.45% 1,000 ML IV SCH (09:10)
[2018-01-01] MEDS ORDERED: SODIUM CHLORIDE 0.9% 500 ML IV NR (10:15)
[2018-01-01] MEDS ORDERED: NOREPINEPHRINE 8 MG in DEXT 5% WATER 242 ML IV PRN (11:30)
[2018-01-01 13:09] LABS: HEMATOCRIT. 25.7 % (36.0-48.0); HEMOGLOBIN. 8.9 g/dL (12.0-16.0); MEAN CORPUSCULAR HEMOGLOBIN 29.5 pg (28.0-32.0); MEAN CORPUSCULAR VOLUME 85.4 fL (81.0-99.0); PLATELET 95 x1000/uL (130-400); RED BLOOD CELL COUNT 3.01 mill/uL (4.2-5.4); RED CELL DISTRIBUTION WIDTH 15.9 % (11.6-14.6)
[2018-01-01 13:11] LABS: INR 1.1; PARTIAL THROMBOPLASTIN TIME 24.4 sec (23.4-31.0)
[2018-01-01 13:27] LABS: CHLORIDE 107 mEq/L (98-107)
[2018-01-01 13:33] LABS: PHOSPHORUS 2.6 mg/dL (2.5-4.9)
[2018-01-01 19:04] LABS: HEMATOCRIT 21.6 % (36.0-48.0); HEMOGLOBIN 7.6 g/dL (12.0-16.0)
[2018-01-01] MEDS: MORPHINE SULFATE 4 MG/ML CPJ (NOT FOR IM USE) IV PRN (21:15)
[2018-01-01] MEDS: LATANOPROST 0.005% OPHTH DROPS 2.5ML EACHEYE SCH (21:17)
[2018-01-02] VITALS (62 sets, daily range): BP systolic 115–212; BP diastolic 43–145
[2018-01-02] MEDS: IPRATROPIUM/ALBUTEROL 0.5-3(2.5)MG/3ML NEB HHN SCH ×6 (00:16→20:35)
[2018-01-02] MEDS: HYDRALAZINE 20MG/ML VIAL IV SCH ×4 (00:24→17:48)
[2018-01-02] MEDS: INSULIN LISPRO 100 UNITS/ML SUBCUT SCH ×4 (00:24→17:52)
[2018-01-02] MEDS: BLOOD SUGAR DIAGNOSTIC STRIP TEST SCH ×4 (00:25→17:40)
[2018-01-02 01:20] LABS: HEMATOCRIT 21.5 % (36.0-48.0); HEMOGLOBIN 7.6 g/dL (12.0-16.0)
[2018-01-02] MEDS: MORPHINE SULFATE 4 MG/ML CPJ (NOT FOR IM USE) IV PRN ×4 (02:40→21:49)
[2018-01-02] MEDS: METOCLOPRAMIDE HCL 10MG TABLET NG SCH ×3 (05:51→21:49)
[2018-01-02] MEDS: SODIUM CHLORIDE 0.45% 1,000 ML IV SCH ×2 (05:54→23:35)
[2018-01-02 07:23] LABS: BASOPHILS % 0.4 % (0.0-2.0); EOSINOPHILS % 1.4 % (0.0-5.0); HEMATOCRIT. 23.7 % (36.0-48.0); HEMOGLOBIN. 7.9 g/dL (12.0-16.0); LYMPHOCYTES % 19.2 % (20.0-50.0); MEAN CORPUSCULAR HEMOGLOBIN 28.7 pg (28.0-32.0); MEAN CORPUSCULAR VOLUME 85.6 fL (81.0-99.0); MEAN PLATELET VOLUME 11.1 fl (7.4-10.4); MONOCYTES % 9.3 % (2.0-8.0); NEUTROPHILS % 69.7 % (40.0-76.0); PLATELET 103 x1000/uL (130-400); RED BLOOD CELL COUNT 2.77 mill/uL (4.2-5.4); RED CELL DISTRIBUTION WIDTH 15.8 % (11.6-14.6)
[2018-01-02 08:08] LABS: BG BASE EXCESS -0.6 mmol/L (-2.0-2.0); BG CARBOXYHEMOGLOBIN 0.1 % (0.5-1.5); BG DEOXYHEMOGLOBIN 1.1 % (0.0-5.0); BG HCO3 ACT 22.2 mmol/L (22.0-26.0); BG METHEMOGLOBIN 0.4 % (0.0-1.5); BG OXYGEN SATURATION 98.9 % (92.0-98.5); BG OXYHEMOGLOBIN 98.4 % (94.0-97.0); BG PH 7.502 (7.350-7.450); BG PO2 175.5 mmHg (75.0-100.0); BG SAMPLE SITE RIGHT RADIAL; BG TIDAL VOLUME(mL) 450 mL; BG TOTAL HEMOGLOBIN 7.8 g/dL (12.0-18.0); BG VENT MODE VENT - A/C; BG VENT RATE 10 set
[2018-01-02] MEDS: FUROSEMIDE 40MG/4ML VIAL IVP SCH ×2 (09:21→21:49)
[2018-01-02] MEDS: PANTOPRAZOLE SODIUM 40 MG/VIAL IV SCH ×2 (09:21→21:49)
[2018-01-02] MEDS: KCL 10MEQ/50ML PREMIX 50 ML IV SCH (09:21)
[2018-01-02] MEDS: METHYLPREDNISOLONE SOD SUCC 40 MG/ML VIAL IV SCH (09:21)
[2018-01-02 13:07] LABS: PLATELET ESTIMATE DECREASED
[2018-01-02 13:08] LABS: HEMATOCRIT 21.9 % (36.0-48.0); HEMOGLOBIN 7.6 g/dL (12.0-16.0)
[2018-01-02] MEDS ORDERED: VANCOMYCIN 500 MG PREMIX 100 ML IV SCH (15:00)
[2018-01-02] MEDS: CLONIDINE 0.2MG TABLET PO PRN (21:48)
[2018-01-02] MEDS: LATANOPROST 0.005% OPHTH DROPS 2.5ML EACHEYE SCH (21:49)
[2018-01-02] MEDS: HYDRALAZINE 20MG/ML VIAL IV PRN (21:49)
[2018-01-03] VITALS (67 sets, daily range): BP systolic 120–205; BP diastolic 37–96
[2018-01-03] MEDS: IPRATROPIUM/ALBUTEROL 0.5-3(2.5)MG/3ML NEB HHN SCH ×6 (00:20→20:22)
[2018-01-03] MEDS: INSULIN LISPRO 100 UNITS/ML SUBCUT SCH ×3 (01:04→12:59)
[2018-01-03] MEDS: HYDRALAZINE 20MG/ML VIAL IV SCH ×5 (03:12→23:53)
[2018-01-03 05:30] LABS: BASOPHILS % 0.3 % (0.0-2.0); EOSINOPHILS % 1.7 % (0.0-5.0); HEMATOCRIT. 21.1 % (36.0-48.0); HEMOGLOBIN. 7.4 g/dL (12.0-16.0); LYMPHOCYTES % 24.3 % (20.0-50.0); MEAN CORPUSCULAR HEMOGLOBIN 29.9 pg (28.0-32.0); MEAN PLATELET VOLUME 10.8 fl (7.4-10.4); MONOCYTES % 9.6 % (2.0-8.0); NEUTROPHILS % 64.1 % (40.0-76.0); PLATELET 94 x1000/uL (130-400); RED BLOOD CELL COUNT 2.49 mill/uL (4.2-5.4); RED CELL DISTRIBUTION WIDTH 15.4 % (11.6-14.6)
[2018-01-03] MEDS: METOCLOPRAMIDE HCL 10MG TABLET NG SCH ×3 (06:03→22:17)
[2018-01-03 06:06] LABS: PHOSPHORUS 1.7 mg/dL (2.5-4.9)
[2018-01-03 06:10] LABS: PREALBUMIN 13.8 mg/dL (20.0-40.0)
[2018-01-03] MEDS: BLOOD SUGAR DIAGNOSTIC STRIP TEST SCH ×5 (06:15→23:52)
[2018-01-03] MEDS: MORPHINE SULFATE 4 MG/ML CPJ (NOT FOR IM USE) IV PRN ×2 (08:23→18:35)
[2018-01-03 08:32] LABS: BG BASE EXCESS 1.4 mmol/L (-2.0-2.0); BG CARBOXYHEMOGLOBIN 0.4 % (0.5-1.5); BG FRACTION INSPIRED OXYGEN 35; BG HCO3 ACT 24.7 mmol/L (22.0-26.0); BG METHEMOGLOBIN 0.6 % (0.0-1.5); BG PCO2 32.5 mmHg (35.0-45.0); BG PH 7.498 (7.350-7.450); BG PO2 193.6 mmHg (75.0-100.0); BG SAMPLE SITE RIGHT RADIAL; BG TIDAL VOLUME(mL) 450 mL; BG VENT MODE VENT - A/C; BG VENT RATE 10 set
[2018-01-03] MEDS: FUROSEMIDE 40MG/4ML VIAL IVP SCH ×2 (09:33→20:31)
[2018-01-03] MEDS: PANTOPRAZOLE SODIUM 40 MG/VIAL IV SCH ×2 (09:33→20:31)
[2018-01-03] MEDS: METHYLPREDNISOLONE SOD SUCC 40 MG/ML VIAL IV SCH (09:33)
[2018-01-03] MEDS: KCL 10MEQ/50ML PREMIX 50 ML IV SCH (09:34)
[2018-01-03] MEDS ORDERED: MAGNESIUM 2 G PREMIX 50 ML IV NR (10:00)
[2018-01-03] MEDS ORDERED: POTASSIUM PHOS,M-BASIC-D-BASIC 15 MMOL in SODIUM CHLORIDE 0.9% 250 ML IV NR (12:00)
[2018-01-03] MEDS: CLONIDINE 0.2MG TABLET PO PRN (20:31)
[2018-01-03] MEDS: LATANOPROST 0.005% OPHTH DROPS 2.5ML EACHEYE SCH (20:32)
[2018-01-04] VITALS (65 sets, daily range): BP systolic 107–217; BP diastolic 32–129
[2018-01-04] MEDS: MEROPENEM 500 MG in SODIUM CHLORIDE 0.9% 50 ML IV SCH ×2 (00:01→23:28)
[2018-01-04] MEDS: INSULIN LISPRO 100 UNITS/ML SUBCUT SCH ×5 (00:01→23:28)
[2018-01-04] MEDS: IPRATROPIUM/ALBUTEROL 0.5-3(2.5)MG/3ML NEB HHN SCH ×7 (00:16→23:58)
[2018-01-04] MEDS: MORPHINE SULFATE 4 MG/ML CPJ (NOT FOR IM USE) IV PRN ×4 (00:50→16:40)
[2018-01-04] MEDS: HYDRALAZINE 20MG/ML VIAL IV SCH ×4 (05:21→23:27)
[2018-01-04] MEDS: METOCLOPRAMIDE HCL 10MG TABLET NG SCH ×3 (05:22→21:05)
[2018-01-04] MEDS: SODIUM CHLORIDE 0.45% 1,000 ML IV SCH ×2 (05:24→15:00)
[2018-01-04] MEDS: BLOOD SUGAR DIAGNOSTIC STRIP TEST SCH ×4 (06:00→23:22)
[2018-01-04 06:35] LABS: BASOPHILS % 0.2 % (0.0-2.0); EOSINOPHILS % 2.9 % (0.0-5.0); HEMATOCRIT. 21.3 % (36.0-48.0); HEMOGLOBIN. 7.3 g/dL (12.0-16.0); LYMPHOCYTES % 26.1 % (20.0-50.0); MEAN CORPUSCULAR HEMOGLOBIN 29.6 pg (28.0-32.0); MEAN CORPUSCULAR VOLUME 86.7 fL (81.0-99.0); MEAN PLATELET VOLUME 10.9 fl (7.4-10.4); MONOCYTES % 10.5 % (2.0-8.0); NEUTROPHILS % 60.3 % (40.0-76.0); PLATELET 126 x1000/uL (130-400); RED BLOOD CELL COUNT 2.46 mill/uL (4.2-5.4); RED CELL DISTRIBUTION WIDTH 15.5 % (11.6-14.6)
[2018-01-04 06:39] LABS: PHOSPHORUS 2.4 mg/dL (2.5-4.9)
[2018-01-04 08:16] LABS: BG CARBOXYHEMOGLOBIN 0.3 % (0.5-1.5); BG DEOXYHEMOGLOBIN 1.6 % (0.0-5.0); BG FRACTION INSPIRED OXYGEN 35; BG HCO3 ACT 23.9 mmol/L (22.0-26.0); BG METHEMOGLOBIN 0.4 % (0.0-1.5); BG OXYGEN SATURATION 98.4 % (92.0-98.5); BG OXYHEMOGLOBIN 97.7 % (94.0-97.0); BG PCO2 35.3 mmHg (35.0-45.0); BG PH 7.449 (7.350-7.450); BG SAMPLE SITE RIGHT RADIAL; BG TIDAL VOLUME(mL) 450 mL; BG TOTAL HEMOGLOBIN 7.4 g/dL (12.0-18.0); BG VENT MODE VENT - A/C; BG VENT RATE 10 set
[2018-01-04] MEDS: METHYLPREDNISOLONE SOD SUCC 40 MG/ML VIAL IV SCH (08:27)
[2018-01-04] MEDS: PANTOPRAZOLE SODIUM 40 MG/VIAL IV SCH ×2 (08:27→21:05)
[2018-01-04] MEDS: LORAZEPAM 2MG/ML CPJ IM PRN ×2 (08:27→21:05)
[2018-01-04] MEDS: FUROSEMIDE 40MG/4ML VIAL IVP SCH ×2 (08:27→21:05)
[2018-01-04] MEDS: KCL 10MEQ/50ML PREMIX 50 ML IV SCH (08:50)
[2018-01-04] MEDS: CLONIDINE 0.2MG TABLET PO PRN (09:26)
[2018-01-04] MEDS ORDERED: LIDOCAINE HCL/PF 1% 2ML VIAL ONE (13:23)
[2018-01-04 14:16] LABS: BG BASE EXCESS -1.3 mmol/L (-2.0-2.0); BG CARBOXYHEMOGLOBIN 0.6 % (0.5-1.5); BG DEOXYHEMOGLOBIN 1.5 % (0.0-5.0); BG FRACTION INSPIRED OXYGEN 35; BG HCO3 ACT 23.2 mmol/L (22.0-26.0); BG METHEMOGLOBIN 0.3 % (0.0-1.5); BG OXYGEN SATURATION 98.5 % (92.0-98.5); BG OXYHEMOGLOBIN 97.6 % (94.0-97.0); BG PCO2 37.2 mmHg (35.0-45.0); BG PH 7.412 (7.350-7.450); BG PRESSURE SUPPORT 12; BG SAMPLE SITE LEFT RADIAL; BG TIDAL VOLUME(mL) 450 mL; BG TOTAL HEMOGLOBIN 6.9 g/dL (12.0-18.0); BG VENT MODE VENT - SIMV; BG VENT RATE 10 set
[2018-01-04] MEDS: CLONIDINE 0.1MG TABLET PO SCH ×2 (15:00→21:05)
[2018-01-04] MEDS ORDERED: VANCOMYCIN 750 MG PREMIX 150 ML IV SCH (16:00)
[2018-01-04] MEDS: LATANOPROST 0.005% OPHTH DROPS 2.5ML EACHEYE SCH (23:00)
[2018-01-05] VITALS (30 sets, daily range): BP systolic 112–201; BP diastolic 43–129
[2018-01-05] MEDS: MORPHINE SULFATE 4 MG/ML CPJ (NOT FOR IM USE) IV PRN ×2 (01:30→09:09)
[2018-01-05] MEDS: LORAZEPAM 2MG/ML CPJ IM PRN (03:34)
[2018-01-05] MEDS: IPRATROPIUM/ALBUTEROL 0.5-3(2.5)MG/3ML NEB HHN SCH ×4 (03:39→16:48)
[2018-01-05] MEDS: BLOOD SUGAR DIAGNOSTIC STRIP TEST SCH ×3 (05:22→17:14)
[2018-01-05] MEDS: CLONIDINE 0.1MG TABLET PO SCH ×4 (05:29→22:13)
[2018-01-05] MEDS: HYDRALAZINE 20MG/ML VIAL IV SCH ×3 (05:29→17:19)
[2018-01-05] MEDS: METOCLOPRAMIDE HCL 10MG TABLET NG SCH ×3 (05:29→22:13)
[2018-01-05] MEDS: INSULIN LISPRO 100 UNITS/ML SUBCUT SCH ×3 (05:31→17:20)
[2018-01-05] MEDS: SODIUM CHLORIDE 0.45% 1,000 ML IV SCH (05:38)
[2018-01-05 06:19] LABS: PHOSPHORUS 2.3 mg/dL (2.5-4.9)
[2018-01-05] MEDS: PANTOPRAZOLE SODIUM 40 MG/VIAL IV SCH ×2 (09:03→22:13)
[2018-01-05] MEDS: FUROSEMIDE 40MG/4ML VIAL IVP SCH ×2 (09:03→22:13)
[2018-01-05] MEDS: METHYLPREDNISOLONE SOD SUCC 40 MG/ML VIAL IV SCH (09:04)
[2018-01-05] MEDS: KCL 10MEQ/50ML PREMIX 50 ML IV SCH (09:04)
[2018-01-05 09:54] LABS: HEMOGLOBIN. 8.1 g/dL (12.0-16.0); MEAN CORPUSCULAR HEMOGLOBIN 29.8 pg (28.0-32.0); MEAN CORPUSCULAR VOLUME 88.8 fL (81.0-99.0); RED CELL DISTRIBUTION WIDTH 15.1 % (11.6-14.6)
[2018-01-05] MEDS ORDERED: LORAZEPAM 2MG/ML CPJ IV PRN (10:30)
[2018-01-05 11:16] LABS: BG BASE EXCESS 0.7 mmol/L (-2.0-2.0); BG CARBOXYHEMOGLOBIN 0.3 % (0.5-1.5); BG DEOXYHEMOGLOBIN 1.9 % (0.0-5.0); BG HCO3 ACT 25.6 mmol/L (22.0-26.0); BG METHEMOGLOBIN 0.6 % (0.0-1.5); BG OXYGEN SATURATION 98.1 % (92.0-98.5); BG OXYHEMOGLOBIN 97.2 % (94.0-97.0); BG PCO2 42.6 mmHg (35.0-45.0); BG PH 7.397 (7.350-7.450); BG PO2 126.1 mmHg (75.0-100.0); BG SAMPLE SITE RIGHT RADIAL; BG TIDAL VOLUME(mL) 450 mL; BG TOTAL HEMOGLOBIN 9.4 g/dL (12.0-18.0); BG VENT MODE VENT - SIMV; BG VENT RATE 8 set
[2018-01-05] MEDS: CLONIDINE 0.2MG TABLET PO PRN (11:52)
[2018-01-05] MEDS: LATANOPROST 0.005% OPHTH DROPS 2.5ML EACHEYE SCH (22:12)
[2018-01-06] VITALS (15 sets, daily range): BP systolic 126–203; BP diastolic 44–84
[2018-01-06] MEDS: BLOOD SUGAR DIAGNOSTIC STRIP TEST SCH ×5 (00:08→23:16)
[2018-01-06] MEDS: INSULIN LISPRO 100 UNITS/ML SUBCUT SCH ×5 (00:12→23:15)
[2018-01-06] MEDS: METOCLOPRAMIDE HCL 10MG TABLET NG SCH ×3 (05:42→21:50)
[2018-01-06] MEDS: HYDRALAZINE 20MG/ML VIAL IV SCH ×5 (05:42→23:14)
[2018-01-06] MEDS: CLONIDINE 0.1MG TABLET PO SCH ×3 (05:43→21:50)
[2018-01-06] MEDS: KCL 10MEQ/50ML PREMIX 50 ML IV SCH (09:00)
[2018-01-06 09:16] LABS: BASOPHILS % 0.4 % (0.0-2.0); HEMATOCRIT. 21.1 % (36.0-48.0); HEMOGLOBIN. 7.2 g/dL (12.0-16.0); LYMPHOCYTES % 23.6 % (20.0-50.0); MEAN CORPUSCULAR HEMOGLOBIN 30.2 pg (28.0-32.0); MEAN PLATELET VOLUME 9.3 fl (7.4-10.4); MONOCYTES % 10.7 % (2.0-8.0); NEUTROPHILS % 62.3 % (40.0-76.0); PLATELET 144 x1000/uL (130-400); RED CELL DISTRIBUTION WIDTH 15.2 % (11.6-14.6)
[2018-01-06 09:19] LABS: CHLORIDE 109 mEq/L (98-107)
[2018-01-06 09:25] LABS: PHOSPHORUS 2.9 mg/dL (2.5-4.9)
[2018-01-06] MEDS ORDERED: METHYLPREDNISOLONE SOD SUCC 40 MG/ML VIAL IV SCH (10:30)
[2018-01-06] MEDS: PANTOPRAZOLE SODIUM 40 MG/VIAL IV SCH ×2 (13:13→21:50)
[2018-01-06] MEDS: FUROSEMIDE 40MG/4ML VIAL IVP SCH ×2 (17:51→21:49)
[2018-01-06] MEDS ORDERED: INSULIN GLARGINE UD 100 UNITS/ML SYR SUBCUT SCH (22:00)
[2018-01-06] MEDS: MEROPENEM 500 MG in SODIUM CHLORIDE 0.9% 50 ML IV SCH ×3 (23:13)
[2018-01-07] VITALS (12 sets, daily range): BP systolic 144–183; BP diastolic 52–93
[2018-01-07] MEDS: HYDRALAZINE 20MG/ML VIAL IV SCH ×4 (05:22→23:15)
[2018-01-07] MEDS: METOCLOPRAMIDE HCL 10MG TABLET NG SCH ×3 (05:22→21:23)
[2018-01-07] MEDS: CLONIDINE 0.1MG TABLET PO SCH ×2 (05:23→14:22)
[2018-01-07] MEDS: BLOOD SUGAR DIAGNOSTIC STRIP TEST SCH ×4 (05:24→23:16)
[2018-01-07] MEDS: INSULIN LISPRO 100 UNITS/ML SUBCUT SCH ×4 (05:24→23:15)
[2018-01-07 07:39] LABS: BASOPHILS % 0.3 % (0.0-2.0); EOSINOPHILS % 2.3 % (0.0-5.0); HEMATOCRIT. 28.1 % (36.0-48.0); MEAN CORPUSCULAR HEMOGLOBIN 30.4 pg (28.0-32.0); MEAN CORPUSCULAR VOLUME 86.3 fL (81.0-99.0); MEAN PLATELET VOLUME 9.3 fl (7.4-10.4); MONOCYTES % 10.2 % (2.0-8.0); NEUTROPHILS % 64.2 % (40.0-76.0); PLATELET 169 x1000/uL (130-400); RED BLOOD CELL COUNT 3.26 mill/uL (4.2-5.4); RED CELL DISTRIBUTION WIDTH 14.9 % (11.6-14.6)
[2018-01-07 08:22] LABS: HEMOGLOBIN. 9.9 g/dL (12.0-16.0)
[2018-01-07 08:33] LABS: CHLORIDE 104 mEq/L (98-107)
[2018-01-07 08:42] LABS: PHOSPHORUS 2.8 mg/dL (2.5-4.9)
[2018-01-07 08:47] LABS: BG BASE EXCESS 3.9 mmol/L (-2.0-2.0); BG CARBOXYHEMOGLOBIN 0.9 % (0.5-1.5); BG DEOXYHEMOGLOBIN 1.5 % (0.0-5.0); BG FRACTION INSPIRED OXYGEN 35; BG HCO3 ACT 28.6 mmol/L (22.0-26.0); BG METHEMOGLOBIN 0.4 % (0.0-1.5); BG OXYGEN SATURATION 98.5 % (92.0-98.5); BG OXYHEMOGLOBIN 97.2 % (94.0-97.0); BG PCO2 44.2 mmHg (35.0-45.0); BG PH 7.429 (7.350-7.450); BG PRESSURE SUPPORT 10; BG SAMPLE SITE RIGHT RADIAL; BG TIDAL VOLUME(mL) 450 mL; BG TOTAL HEMOGLOBIN 7.3 g/dL (12.0-18.0); BG VENT MODE VENT - SIMV; BG VENT RATE 6 set
[2018-01-07] MEDS: FUROSEMIDE 40MG/4ML VIAL IVP SCH ×2 (09:00→21:22)
[2018-01-07] MEDS: PANTOPRAZOLE SODIUM 40 MG/VIAL IV SCH ×2 (10:10→21:22)
[2018-01-07] MEDS: KCL 10MEQ/50ML PREMIX 50 ML IV SCH (10:11)
[2018-01-07] MEDS ORDERED: LIDOCAINE HCL/PF 1% 2ML VIAL ONE (13:29)
[2018-01-07] MEDS: CLONIDINE 0.2MG TABLET PO SCH (21:23)
[2018-01-07] MEDS: INSULIN GLARGINE UD 100 UNITS/ML SYR SUBCUT SCH (23:14)
[2018-01-07] MEDS: MEROPENEM 500 MG in SODIUM CHLORIDE 0.9% 50 ML IV SCH (23:15)
[2018-01-08] VITALS (12 sets, daily range): BP systolic 124–170; BP diastolic 48–70
[2018-01-08] MEDS: METOCLOPRAMIDE HCL 10MG TABLET NG SCH ×3 (06:02→22:19)
[2018-01-08] MEDS: CLONIDINE 0.2MG TABLET PO SCH ×3 (06:02→22:19)
[2018-01-08] MEDS: HYDRALAZINE 20MG/ML VIAL IV SCH ×4 (06:03→23:23)
[2018-01-08] MEDS: INSULIN LISPRO 100 UNITS/ML SUBCUT SCH ×4 (06:03→23:14)
[2018-01-08] MEDS: BLOOD SUGAR DIAGNOSTIC STRIP TEST SCH ×4 (06:04→23:15)
[2018-01-08 07:05] LABS: HEMATOCRIT. 25.3 % (36.0-48.0); HEMOGLOBIN. 8.5 g/dL (12.0-16.0); MEAN CORPUSCULAR HEMOGLOBIN 30.3 pg (28.0-32.0); MEAN CORPUSCULAR VOLUME 89.8 fL (81.0-99.0); MEAN PLATELET VOLUME 10.1 fl (7.4-10.4); PLATELET 183 x1000/uL (130-400); RED BLOOD CELL COUNT 2.82 mill/uL (4.2-5.4); RED CELL DISTRIBUTION WIDTH 14.6 % (11.6-14.6)
[2018-01-08 07:29] LABS: PHOSPHORUS 2.4 mg/dL (2.5-4.9)
[2018-01-08] MEDS: FUROSEMIDE 40MG/4ML VIAL IVP SCH (09:08)
[2018-01-08] MEDS: PANTOPRAZOLE SODIUM 40 MG/VIAL IV SCH ×2 (09:08→22:15)
[2018-01-08] MEDS: KCL 10MEQ/50ML PREMIX 50 ML IV SCH (09:08)
[2018-01-08] MEDS ORDERED: LIDOCAINE HCL/PF 1% 2ML VIAL ONE (13:25)
[2018-01-08 15:42] LABS: BG BASE EXCESS 1.4 mmol/L (-2.0-2.0); BG CARBOXYHEMOGLOBIN 0.8 % (0.5-1.5); BG DEOXYHEMOGLOBIN 1.4 % (0.0-5.0); BG HCO3 ACT 25.5 mmol/L (22.0-26.0); BG METHEMOGLOBIN 0.2 % (0.0-1.5); BG OXYHEMOGLOBIN 97.6 % (94.0-97.0); BG PH 7.445 (7.350-7.450); BG PO2 145.1 mmHg (75.0-100.0); BG SAMPLE SITE LEFT RADIAL; BG TIDAL VOLUME(mL) 450 mL; BG TOTAL HEMOGLOBIN 8.1 g/dL (12.0-18.0); BG VENT MODE VENT - SIMV; BG VENT RATE 4 set
[2018-01-08] MEDS: IPRATROPIUM/ALBUTEROL 0.5-3(2.5)MG/3ML NEB HHN SCH ×2 (17:41→19:56)
[2018-01-08] MEDS: FUROSEMIDE 40MG TABLET GT SCH (22:15)
[2018-01-08] MEDS: INSULIN GLARGINE UD 100 UNITS/ML SYR SUBCUT SCH (23:14)
[2018-01-08] MEDS: MEROPENEM 500 MG in SODIUM CHLORIDE 0.9% 50 ML IV SCH (23:23)
[2018-01-09] VITALS (20 sets, daily range): BP systolic 113–189; BP diastolic 40–73
[2018-01-09] MEDS: IPRATROPIUM/ALBUTEROL 0.5-3(2.5)MG/3ML NEB HHN SCH ×4 (01:39→20:40)
[2018-01-09] MEDS: METOCLOPRAMIDE HCL 10MG TABLET NG SCH ×3 (06:04→23:21)
[2018-01-09] MEDS: CLONIDINE 0.2MG TABLET PO SCH ×3 (06:04→23:21)
[2018-01-09] MEDS: HYDRALAZINE 20MG/ML VIAL IV SCH ×4 (06:05→23:20)
[2018-01-09] MEDS: BLOOD SUGAR DIAGNOSTIC STRIP TEST SCH ×4 (06:06→23:22)
[2018-01-09] MEDS: INSULIN LISPRO 100 UNITS/ML SUBCUT SCH ×4 (06:20→23:22)
[2018-01-09 08:30] LABS: CHLORIDE 111 mEq/L (98-107)
[2018-01-09 08:36] LABS: PHOSPHORUS 2.7 mg/dL (2.5-4.9)
[2018-01-09] MEDS: FUROSEMIDE 40MG TABLET GT SCH ×2 (09:00→20:39)
[2018-01-09] MEDS: PANTOPRAZOLE SODIUM 40 MG/VIAL IV SCH ×2 (09:00→20:38)
[2018-01-09] MEDS ORDERED: LIDOCAINE HCL/PF 1% 2ML VIAL ONE (09:34)
[2018-01-09 10:29] LABS: MEAN CORPUSCULAR HEMOGLOBIN 30.1 pg (28.0-32.0); MEAN PLATELET VOLUME 9.5 fl (7.4-10.4); PLATELET 128 x1000/uL (130-400); RED BLOOD CELL COUNT 1.96 mill/uL (4.2-5.4); RED CELL DISTRIBUTION WIDTH 14.6 % (11.6-14.6)
[2018-01-09 10:34] LABS: HEMOGLOBIN. 5.9 g/dL (12.0-16.0)
[2018-01-09 10:35] LABS: HEMATOCRIT. 17.2 % (36.0-48.0)
[2018-01-09 12:19] LABS: PLATELET ESTIMATE SLIGHTLY DECREASED
[2018-01-09 15:02] LABS: BG BASE EXCESS 2.3 mmol/L (-2.0-2.0); BG CARBOXYHEMOGLOBIN 0.2 % (0.5-1.5); BG DEOXYHEMOGLOBIN 2.5 % (0.0-5.0); BG FRACTION INSPIRED OXYGEN 30; BG HCO3 ACT 26.5 mmol/L (22.0-26.0); BG METHEMOGLOBIN 0.8 % (0.0-1.5); BG OXYHEMOGLOBIN 96.5 % (94.0-97.0); BG PCO2 38.9 mmHg (35.0-45.0); BG PH 7.451 (7.350-7.450); BG PO2 104.6 mmHg (75.0-100.0); BG PRESSURE SUPPORT 10; BG SAMPLE SITE RIGHT RADIAL; BG TIDAL VOLUME(mL) 450 mL; BG VENT MODE VENT - SIMV; BG VENT RATE 4 set
[2018-01-09 16:01] LABS: PLATELET ESTIMATE NORMAL
[2018-01-09] MEDS ORDERED: SORBITOL 70% SOLN 30ML PEG NR (20:00)
[2018-01-09] MEDS ORDERED: INSULIN GLARGINE UD 100 UNITS/ML SYR SUBCUT SCH (22:00)
[2018-01-09] MEDS: MEROPENEM 500 MG in SODIUM CHLORIDE 0.9% 50 ML IV SCH (23:20)
[2018-01-10] VITALS (12 sets, daily range): BP systolic 116–171; BP diastolic 34–73
[2018-01-10 01:14] LABS: HEMATOCRIT 29.3 % (36.0-48.0); HEMOGLOBIN 9.9 g/dL (12.0-16.0)
[2018-01-10 01:17] LABS: PROTHROMBIN TIME 10.9 sec (9.4-11.6)
[2018-01-10] MEDS: IPRATROPIUM/ALBUTEROL 0.5-3(2.5)MG/3ML NEB HHN SCH ×4 (02:16→19:59)
[2018-01-10] MEDS: CLONIDINE 0.2MG TABLET PO SCH ×3 (05:35→22:07)
[2018-01-10] MEDS: HYDRALAZINE 20MG/ML VIAL IV SCH ×3 (05:35→17:56)
[2018-01-10] MEDS: METOCLOPRAMIDE HCL 10MG TABLET NG SCH ×3 (05:35→22:06)
[2018-01-10] MEDS: BLOOD SUGAR DIAGNOSTIC STRIP TEST SCH ×3 (05:36→18:03)
[2018-01-10] MEDS: INSULIN LISPRO 100 UNITS/ML SUBCUT SCH ×3 (05:47→18:00)
[2018-01-10] MEDS ORDERED: SORBITOL 70% SOLN 30ML PEG NR (06:00)
[2018-01-10 07:26] LABS: BASOPHILS % 0.6 % (0.0-2.0); EOSINOPHILS % 1.7 % (0.0-5.0); HEMATOCRIT. 26.5 % (36.0-48.0); LYMPHOCYTES % 17.3 % (20.0-50.0); MEAN CORPUSCULAR HEMOGLOBIN 30.9 pg (28.0-32.0); MEAN CORPUSCULAR VOLUME 90.3 fL (81.0-99.0); MEAN PLATELET VOLUME 9.6 fl (7.4-10.4); MONOCYTES % 7.1 % (2.0-8.0); NEUTROPHILS % 73.3 % (40.0-76.0); PLATELET 150 x1000/uL (130-400); RED BLOOD CELL COUNT 2.93 mill/uL (4.2-5.4); RED CELL DISTRIBUTION WIDTH 14.8 % (11.6-14.6)
[2018-01-10 08:07] LABS: BG BASE EXCESS -1.2 mmol/L (-2.0-2.0); BG CARBOXYHEMOGLOBIN 0.3 % (0.5-1.5); BG DEOXYHEMOGLOBIN 2.5 % (0.0-5.0); BG FRACTION INSPIRED OXYGEN 30; BG METHEMOGLOBIN 0.1 % (0.0-1.5); BG OXYHEMOGLOBIN 97.1 % (94.0-97.0); BG PCO2 36.4 mmHg (35.0-45.0); BG PH 7.419 (7.350-7.450); BG PO2 106.8 mmHg (75.0-100.0); BG PRESSURE SUPPORT 10; BG SAMPLE SITE RIGHT RADIAL; BG TIDAL VOLUME(mL) 450 mL; BG TOTAL HEMOGLOBIN 9.9 g/dL (12.0-18.0); BG VENT MODE VENT - SIMV; BG VENT RATE 4 set
[2018-01-10 08:24] LABS: PHOSPHORUS 3.4 mg/dL (2.5-4.9)
[2018-01-10] MEDS ORDERED: NA PHOS,M-B/NA PHOS,DI-BA ENEMA 118ML PR NR (09:00)
[2018-01-10] MEDS: PANTOPRAZOLE SODIUM 40 MG/VIAL IV SCH ×2 (09:20→22:05)
[2018-01-10] MEDS: FUROSEMIDE 40MG TABLET GT SCH ×2 (09:20→22:07)
[2018-01-10] MEDS ORDERED: LIDOCAINE HCL/PF 1% 2ML VIAL ONE (13:21)
[2018-01-10] MEDS ORDERED: SIMETHICONE 40 MG/0.6 ML 30ML ONE (13:40)
[2018-01-10] MEDS ORDERED: SODIUM CHLORIDE 0.9% 10ML VIAL ONE (13:40)
[2018-01-10] MEDS ORDERED: DIPHENHYDRAMINE 50MG/ML VIAL IV SCH (14:00)
[2018-01-10] MEDS ORDERED: FENTANYL CITRATE/PF 50MCG/ML 2ML VIAL ONE (15:09)
[2018-01-10] MEDS ORDERED: MIDAZOLAM HCL 5 MG/5 ML VIAL ONE (15:09)
[2018-01-10] MEDS ORDERED: MIDAZOLAM HCL 5 MG/5 ML VIAL IV NR (15:21)
[2018-01-10] MEDS ORDERED: SORBITOL 70% SOLN 30ML PO SCH (20:00)
[2018-01-10] MEDS ORDERED: INSULIN GLARGINE UD 100 UNITS/ML SYR SUBCUT SCH (22:00)
[2018-01-11] VITALS (17 sets, daily range): BP systolic 107–208; BP diastolic 32–71
[2018-01-11] MEDS: HYDRALAZINE 20MG/ML VIAL IV SCH ×3 (00:48→12:22)
[2018-01-11] MEDS: BLOOD SUGAR DIAGNOSTIC STRIP TEST SCH ×4 (00:48→18:53)
[2018-01-11] MEDS: MEROPENEM 500 MG in SODIUM CHLORIDE 0.9% 50 ML IV SCH ×2 (00:49→23:58)
[2018-01-11] MEDS: IPRATROPIUM/ALBUTEROL 0.5-3(2.5)MG/3ML NEB HHN SCH ×4 (02:19→20:46)
[2018-01-11] MEDS ORDERED: SORBITOL 70% SOLN 30ML PO SCH (06:00)
[2018-01-11] MEDS: INSULIN LISPRO 100 UNITS/ML SUBCUT SCH ×4 (06:00→18:00)
[2018-01-11 06:45] LABS: BASOPHILS % 0.6 % (0.0-2.0); EOSINOPHILS % 1.5 % (0.0-5.0); HEMATOCRIT. 27.7 % (36.0-48.0); HEMOGLOBIN. 9.4 g/dL (12.0-16.0); LYMPHOCYTES % 13.5 % (20.0-50.0); MEAN CORPUSCULAR HEMOGLOBIN 30.4 pg (28.0-32.0); MEAN CORPUSCULAR VOLUME 89.7 fL (81.0-99.0); MEAN PLATELET VOLUME 9.6 fl (7.4-10.4); NEUTROPHILS % 77.4 % (40.0-76.0); PLATELET 175 x1000/uL (130-400); RED BLOOD CELL COUNT 3.09 mill/uL (4.2-5.4); RED CELL DISTRIBUTION WIDTH 14.9 % (11.6-14.6)
[2018-01-11] MEDS: CLONIDINE 0.2MG TABLET PO SCH ×3 (06:49→22:35)
[2018-01-11] MEDS: METOCLOPRAMIDE HCL 10MG TABLET NG SCH ×3 (06:49→22:35)
[2018-01-11] MEDS ORDERED: NA PHOS,M-B/NA PHOS,DI-BA ENEMA 118ML PR SCH ×2 (08:00→12:00)
[2018-01-11] MEDS: FUROSEMIDE 40MG TABLET GT SCH ×2 (08:58→22:35)
[2018-01-11] MEDS: PANTOPRAZOLE SODIUM 40 MG/VIAL IV SCH ×2 (08:58→22:34)
[2018-01-11] MEDS ORDERED: ENALAPRIL 2.5 MG in DEXTROSE 5% WATER 48 ML IV PRN (09:30)
[2018-01-11 09:31] LABS: BG BASE EXCESS -2.7 mmol/L (-2.0-2.0); BG CARBOXYHEMOGLOBIN 0.3 % (0.5-1.5); BG DEOXYHEMOGLOBIN 3.7 % (0.0-5.0); BG FRACTION INSPIRED OXYGEN 30; BG HCO3 ACT 21.6 mmol/L (22.0-26.0); BG METHEMOGLOBIN 0.3 % (0.0-1.5); BG OXYHEMOGLOBIN 95.7 % (94.0-97.0); BG PCO2 35.1 mmHg (35.0-45.0); BG PH 7.407 (7.350-7.450); BG PRESSURE SUPPORT 10; BG SAMPLE SITE RIGHT RADIAL; BG TIDAL VOLUME(mL) 450 mL; BG TOTAL HEMOGLOBIN 9.2 g/dL (12.0-18.0); BG VENT MODE VENT - SIMV; BG VENT RATE 4 set
[2018-01-11] MEDS: ENALAPRIL 2.5MG/2ML VIAL 2ML IV PRN (12:16)
[2018-01-11] MEDS ORDERED: LIDOCAINE HCL/PF 1% 2ML VIAL ONE (13:16)
[2018-01-11] MEDS ORDERED: FENTANYL CITRATE/PF 50MCG/ML 2ML VIAL ONE (13:54)
[2018-01-11] MEDS ORDERED: MIDAZOLAM HCL 5 MG/5 ML VIAL ONE (13:54)
[2018-01-11] MEDS ORDERED: SIMETHICONE 40 MG/0.6 ML 30ML ONE (13:55)
[2018-01-11] MEDS ORDERED: HEPARIN SODIUM 1,000 UNIT/1ML VIAL IV NR (19:30)
[2018-01-11] MEDS ORDERED: SORBITOL 70% SOLN 30ML PO NR (21:00)
[2018-01-11] MEDS: INSULIN GLARGINE UD 100 UNITS/ML SYR SUBCUT SCH (22:51)
[2018-01-12] VITALS (12 sets, daily range): BP systolic 141–182; BP diastolic 46–67
[2018-01-12] MEDS: INSULIN LISPRO 100 UNITS/ML SUBCUT SCH ×4 (00:13→23:34)
[2018-01-12] MEDS: IPRATROPIUM/ALBUTEROL 0.5-3(2.5)MG/3ML NEB HHN SCH ×4 (02:09→20:35)
[2018-01-12] MEDS: METOCLOPRAMIDE HCL 10MG TABLET NG SCH ×3 (05:44→20:54)
[2018-01-12] MEDS: CLONIDINE 0.2MG TABLET PO SCH ×3 (05:44→21:12)
[2018-01-12] MEDS: BLOOD SUGAR DIAGNOSTIC STRIP TEST SCH ×4 (06:00→23:14)
[2018-01-12] MEDS ORDERED: SORBITOL 70% SOLN 30ML PO NR (06:00)
[2018-01-12] MEDS: FUROSEMIDE 40MG TABLET GT SCH ×2 (08:26→20:53)
[2018-01-12] MEDS: PANTOPRAZOLE SODIUM 40 MG/VIAL IV SCH ×2 (08:26→20:53)
[2018-01-12 08:47] LABS: BG BASE EXCESS 3.2 mmol/L (-2.0-2.0); BG CARBOXYHEMOGLOBIN 0.2 % (0.5-1.5); BG DEOXYHEMOGLOBIN 1.9 % (0.0-5.0); BG FRACTION INSPIRED OXYGEN 30; BG HCO3 ACT 27.8 mmol/L (22.0-26.0); BG METHEMOGLOBIN 0.3 % (0.0-1.5); BG OXYGEN SATURATION 98.1 % (92.0-98.5); BG OXYHEMOGLOBIN 97.6 % (94.0-97.0); BG PCO2 42.6 mmHg (35.0-45.0); BG PH 7.433 (7.350-7.450); BG PO2 128.8 mmHg (75.0-100.0); BG PRESSURE SUPPORT 10; BG SAMPLE SITE LEFT RADIAL; BG TIDAL VOLUME(mL) 450 mL; BG TOTAL HEMOGLOBIN 9.9 g/dL (12.0-18.0); BG VENT MODE VENT - SIMV; BG VENT RATE 6 set
[2018-01-12] MEDS: INSULIN GLARGINE UD 100 UNITS/ML SYR SUBCUT SCH ×2 (09:00→21:01)
[2018-01-12 09:21] LABS: CHLORIDE 122 mEq/L (98-107)
[2018-01-12 09:24] LABS: BASOPHILS % 0.3 % (0.0-2.0); EOSINOPHILS % 1.4 % (0.0-5.0); HEMATOCRIT. 28.6 % (36.0-48.0); HEMOGLOBIN. 10.1 g/dL (12.0-16.0); LYMPHOCYTES % 18.1 % (20.0-50.0); MEAN CORPUSCULAR HEMOGLOBIN 32.2 pg (28.0-32.0); MEAN CORPUSCULAR VOLUME 91.1 fL (81.0-99.0); MEAN PLATELET VOLUME 8.7 fl (7.4-10.4); MONOCYTES % 8.5 % (2.0-8.0); NEUTROPHILS % 71.7 % (40.0-76.0); PLATELET 186 x1000/uL (130-400); RED BLOOD CELL COUNT 3.14 mill/uL (4.2-5.4); RED CELL DISTRIBUTION WIDTH 14.7 % (11.6-14.6)
[2018-01-12 09:28] LABS: PHOSPHORUS 3.8 mg/dL (2.5-4.9)
[2018-01-12 09:30] LABS: PREALBUMIN 14.3 mg/dL (20.0-40.0)
[2018-01-12] MEDS ORDERED: NA PHOS,M-B/NA PHOS,DI-BA ENEMA 118ML PR NR (10:00)
[2018-01-12] MEDS ORDERED: DEXTROSE 5% WATER 1,000 ML IV SCH (10:45)
[2018-01-12] MEDS ORDERED: SODIUM CHLORIDE 0.9% 10ML VIAL ONE (12:58)
[2018-01-12] MEDS ORDERED: NA PHOS,M-B/NA PHOS,DI-BA ENEMA 118ML PR SCH (14:30)
[2018-01-12] MEDS ORDERED: SIMETHICONE 40 MG/0.6 ML 30ML ONE (14:35)
[2018-01-12] MEDS ORDERED: FENTANYL CITRATE/PF 50MCG/ML 2ML VIAL ONE (17:51)
[2018-01-12] MEDS ORDERED: MIDAZOLAM HCL 5 MG/5 ML VIAL ONE (17:51)
[2018-01-12] MEDS ORDERED: MIDAZOLAM HCL 5 MG/5 ML VIAL IV PRN (18:04)
[2018-01-12] MEDS: DEXTROSE 5% WATER 1,000 ML IV SCH ×2 (21:12→23:15)
[2018-01-12] MEDS: ENALAPRIL 2.5MG/2ML VIAL 2ML IV PRN (22:48)
[2018-01-12] MEDS: MEROPENEM 500 MG in SODIUM CHLORIDE 0.9% 50 ML IV SCH (23:18)
[2018-01-13] VITALS (15 sets, daily range): BP systolic 136–184; BP diastolic 44–65
[2018-01-13] MEDS: IPRATROPIUM/ALBUTEROL 0.5-3(2.5)MG/3ML NEB HHN SCH ×4 (02:22→19:47)
[2018-01-13 04:10] LABS: CLARITY URINE TURBID (CLEAR); COLOR URINE DARK YELLOW (YELLOW); KETONES URINE TRACE (NEGATIVE); LEUKOCYTE ESTERASE URINE 3+ (NEGATIVE); NITRITE URINE NEGATIVE (NEGATIVE); OCCULT BLOOD URINE 1+ (NEGATIVE); PROTEIN URINE 4+ (NEGATIVE); SPECIFIC GRAVITY URINE 1.024 (1.005-1.030); UROBILINOGEN URINE 0.2 E.U./dL (0.2-1.0)
[2018-01-13] MEDS: BLOOD SUGAR DIAGNOSTIC STRIP TEST SCH ×4 (06:00→23:28)
[2018-01-13] MEDS: DEXTROSE 5% WATER 1,000 ML IV SCH (06:48)
[2018-01-13] MEDS: METOCLOPRAMIDE HCL 10MG TABLET NG SCH ×3 (06:49→21:10)
[2018-01-13] MEDS: CLONIDINE 0.2MG TABLET PO SCH ×3 (06:50→21:10)
[2018-01-13] MEDS: INSULIN LISPRO 100 UNITS/ML SUBCUT SCH ×4 (06:54→23:28)
[2018-01-13 07:07] LABS: BASOPHILS % 0.6 % (0.0-2.0); EOSINOPHILS % 1.5 % (0.0-5.0); HEMATOCRIT. 27.8 % (36.0-48.0); HEMOGLOBIN. 9.4 g/dL (12.0-16.0); LYMPHOCYTES % 15.3 % (20.0-50.0); MEAN CORPUSCULAR HEMOGLOBIN 30.1 pg (28.0-32.0); MEAN CORPUSCULAR VOLUME 89.5 fL (81.0-99.0); MEAN PLATELET VOLUME 9.1 fl (7.4-10.4); MONOCYTES % 8.2 % (2.0-8.0); NEUTROPHILS % 74.4 % (40.0-76.0); PLATELET 188 x1000/uL (130-400); RED BLOOD CELL COUNT 3.11 mill/uL (4.2-5.4); RED CELL DISTRIBUTION WIDTH 15.2 % (11.6-14.6)
[2018-01-13] MEDS: FUROSEMIDE 40MG TABLET GT SCH ×2 (08:28→21:10)
[2018-01-13] MEDS: PANTOPRAZOLE SODIUM 40 MG/VIAL IV SCH ×2 (08:28→21:10)
[2018-01-13 08:34] LABS: CHLORIDE 119 mEq/L (98-107)
[2018-01-13 08:45] LABS: PHOSPHORUS 5.8 mg/dL (2.5-4.9)
[2018-01-13 09:04] LABS: PREALBUMIN 14.7 mg/dL (20.0-40.0)
[2018-01-13] MEDS: INSULIN GLARGINE UD 100 UNITS/ML SYR SUBCUT SCH ×2 (10:15→21:21)
[2018-01-13] MEDS: DEXT 5% WATER + KCL 20MEQ/L 1,000 ML IV SCH ×2 (15:23→23:28)
[2018-01-14] VITALS (17 sets, daily range): BP systolic 142–182; BP diastolic 50–66
[2018-01-14] MEDS: IPRATROPIUM/ALBUTEROL 0.5-3(2.5)MG/3ML NEB HHN SCH ×4 (01:46→19:59)
[2018-01-14] MEDS: DEXT 5% WATER + KCL 20MEQ/L 1,000 ML IV SCH ×2 (02:44→06:43)
[2018-01-14] MEDS: METOCLOPRAMIDE HCL 10MG TABLET NG SCH ×3 (06:36→21:30)
[2018-01-14] MEDS: CLONIDINE 0.2MG TABLET PO SCH ×3 (06:37→21:30)
[2018-01-14] MEDS: INSULIN LISPRO 100 UNITS/ML SUBCUT SCH ×3 (06:38→17:58)
[2018-01-14] MEDS: BLOOD SUGAR DIAGNOSTIC STRIP TEST SCH ×3 (06:38→17:58)
[2018-01-14 07:18] LABS: HEMATOCRIT. 24.6 % (36.0-48.0); HEMOGLOBIN. 8.3 g/dL (12.0-16.0); MEAN CORPUSCULAR HEMOGLOBIN 30.5 pg (28.0-32.0); MEAN CORPUSCULAR VOLUME 90.5 fL (81.0-99.0); MEAN PLATELET VOLUME 9.6 fl (7.4-10.4); PLATELET 174 x1000/uL (130-400); RED BLOOD CELL COUNT 2.72 mill/uL (4.2-5.4); RED CELL DISTRIBUTION WIDTH 14.5 % (11.6-14.6)
[2018-01-14 07:59] LABS: PHOSPHORUS 4.8 mg/dL (2.5-4.9)
[2018-01-14] MEDS: PANTOPRAZOLE SODIUM 40 MG/VIAL IV SCH ×2 (09:19→21:29)
[2018-01-14] MEDS: FUROSEMIDE 40MG TABLET GT SCH ×2 (09:20→21:30)
[2018-01-14] MEDS: INSULIN GLARGINE UD 100 UNITS/ML SYR SUBCUT SCH ×2 (09:25→21:30)
[2018-01-14 09:37] LABS: PLATELET ESTIMATE NORMAL
[2018-01-14] MEDS: ACETAMINOPHEN 650MG/20.3ML UDC GT PRN (12:17)
[2018-01-14 12:51] LABS: BG BASE EXCESS 0.6 mmol/L (-2.0-2.0); BG CARBOXYHEMOGLOBIN 0.2 % (0.5-1.5); BG CPAP (cmH2O) 0 cm(H2O); BG DEOXYHEMOGLOBIN 2.4 % (0.0-5.0); BG HCO3 ACT 25.1 mmol/L (22.0-26.0); BG METHEMOGLOBIN 0.2 % (0.0-1.5); BG OXYGEN SATURATION 97.6 % (92.0-98.5); BG OXYHEMOGLOBIN 97.2 % (94.0-97.0); BG PCO2 39.8 mmHg (35.0-45.0); BG PH 7.418 (7.350-7.450); BG PO2 105.4 mmHg (75.0-100.0); BG SAMPLE SITE LEFT RADIAL; BG TOTAL HEMOGLOBIN 8.8 g/dL (12.0-18.0); BG VENT MODE VENT - CPAP
[2018-01-14] MEDS: ENALAPRIL 2.5MG/2ML VIAL 2ML IV PRN (17:19)
[2018-01-15] VITALS (13 sets, daily range): BP systolic 133–176; BP diastolic 46–72
[2018-01-15] MEDS: INSULIN LISPRO 100 UNITS/ML SUBCUT SCH ×4 (00:15→17:26)
[2018-01-15] MEDS: BLOOD SUGAR DIAGNOSTIC STRIP TEST SCH ×4 (00:15→17:26)
[2018-01-15] MEDS: IPRATROPIUM/ALBUTEROL 0.5-3(2.5)MG/3ML NEB HHN SCH ×3 (01:49→12:51)
[2018-01-15] MEDS: CLONIDINE 0.2MG TABLET PO SCH ×2 (06:36→13:40)
[2018-01-15] MEDS: METOCLOPRAMIDE HCL 10MG TABLET NG SCH ×2 (06:36→13:57)
[2018-01-15] MEDS ORDERED: POTASSIUM CHLORIDE 20MEQ/PACKET GT SCH (09:00)
[2018-01-15] MEDS: FUROSEMIDE 40MG TABLET GT SCH (09:15)
[2018-01-15] MEDS: ENALAPRIL 2.5MG/2ML VIAL 2ML IV PRN ×2 (09:16→15:16)
[2018-01-15] MEDS: PANTOPRAZOLE SODIUM 40 MG/VIAL IV SCH (09:16)
[2018-01-15] MEDS: INSULIN GLARGINE UD 100 UNITS/ML SYR SUBCUT SCH (09:23)
[2018-01-15 12:53] LABS: HEMATOCRIT. 23.4 % (36.0-48.0); HEMOGLOBIN. 7.9 g/dL (12.0-16.0); MEAN CORPUSCULAR HEMOGLOBIN 29.4 pg (28.0-32.0); MEAN CORPUSCULAR VOLUME 86.8 fL (81.0-99.0); MEAN PLATELET VOLUME 8.6 fl (7.4-10.4); PLATELET 156 x1000/uL (130-400); RED BLOOD CELL COUNT 2.69 mill/uL (4.2-5.4); RED CELL DISTRIBUTION WIDTH 14.2 % (11.6-14.6)
[2018-01-15 13:06] LABS: PHOSPHORUS 4.4 mg/dL (2.5-4.9)
[2018-01-15 13:09] LABS: PLATELET ESTIMATE NORMAL
[2018-01-15] MEDS: ACETAMINOPHEN 650MG/20.3ML UDC GT PRN (13:40)
[2018-01-15] MEDS ORDERED: FLUCONAZOLE 200 MG/100ML BAG 100 ML IV SCH (14:00)
[2018-01-15] MEDS ORDERED: INSULIN GLARGINE UD 100 UNITS/ML SYR SUBCUT SCH (22:00)
== END 2018-01-15 20:39 | DRG 5 ==
LOC: ER 08:19 → EDBEDREQ 08:52 → EDBEDREQSVC 08:52 → MICUNO 10:31 → EDBEDREQ 10:36 → ENRESERV 10:44 → SUPCPDRO 12:03 → EDBEDREQ 15:02 → 5EST 12-09 20:52 → CVICU 12-15 10:59 → 5EST 01-05 15:25
PROVIDERS: ADMIT Internal Medicine Critical Care Medicine; ATTEND Internal Medicine Critical Care Medicine
PROC: 5A09457 Assistance with Respiratory Ventilation, 24-96 Consecutive Hours, Continuous Positive Airway Pressure (ICD-10-PCS; 2017-12-10)
PROC: 5A1955Z Respiratory Ventilation, Greater than 96 Consecutive Hours (ICD-10-PCS; principal; 2017-12-15)
PROC: 02HV33Z Insertion of Infusion Device into Superior Vena Cava, Percutaneous Approach (ICD-10-PCS; 2017-12-15)
PROC: B548ZZA Ultrasonography of Superior Vena Cava, Guidance (ICD-10-PCS; 2017-12-15)
PROC: 5A1D70Z Performance of Urinary Filtration, Intermittent, Less than 6 Hours Per Day (ICD-10-PCS; 2017-12-15)
PROC: 0BH17EZ Insertion of Endotracheal Airway into Trachea, Via Natural or Artificial Opening (ICD-10-PCS; 2017-12-15)
PROC: B54NZZA Ultrasonography of Left Upper Extremity Veins, Guidance (ICD-10-PCS; 2017-12-22)
PROC: 05HY33Z Insertion of Infusion Device into Upper Vein, Percutaneous Approach (ICD-10-PCS; 2017-12-22)
PROC: 5A1D70Z Performance of Urinary Filtration, Intermittent, Less than 6 Hours Per Day (ICD-10-PCS; 2017-12-23)
PROC: 30233N1 Transfusion of Nonautologous Red Blood Cells into Peripheral Vein, Percutaneous Approach (ICD-10-PCS; 2017-12-24)
PROC: 5A1D70Z Performance of Urinary Filtration, Intermittent, Less than 6 Hours Per Day (ICD-10-PCS; 2017-12-24)
PROC: 5A1D70Z Performance of Urinary Filtration, Intermittent, Less than 6 Hours Per Day (ICD-10-PCS; 2017-12-25)
PROC: 0B110F4 Bypass Trachea to Cutaneous with Tracheostomy Device, Open Approach (ICD-10-PCS; 2017-12-28)
PROC: 5A1D70Z Performance of Urinary Filtration, Intermittent, Less than 6 Hours Per Day (ICD-10-PCS; 2017-12-28)
PROC: 5A1D70Z Performance of Urinary Filtration, Intermittent, Less than 6 Hours Per Day (ICD-10-PCS; 2017-12-29)
PROC: 0DH63UZ Insertion of Feeding Device into Stomach, Percutaneous Approach (ICD-10-PCS; 2017-12-30)
PROC: 5A1D70Z Performance of Urinary Filtration, Intermittent, Less than 6 Hours Per Day (ICD-10-PCS; 2017-12-30)
PROC: 5A1D70Z Performance of Urinary Filtration, Intermittent, Less than 6 Hours Per Day (ICD-10-PCS; 2017-12-31)
PROC: 5A1D70Z Performance of Urinary Filtration, Intermittent, Less than 6 Hours Per Day (ICD-10-PCS; 2018-01-01)
PROC: 5A1D70Z Performance of Urinary Filtration, Intermittent, Less than 6 Hours Per Day (ICD-10-PCS; 2018-01-04)
PROC: 5A1D70Z Performance of Urinary Filtration, Intermittent, Less than 6 Hours Per Day (ICD-10-PCS; 2018-01-05)
PROC: 5A1D70Z Performance of Urinary Filtration, Intermittent, Less than 6 Hours Per Day (ICD-10-PCS; 2018-01-06)
PROC: 5A1D70Z Performance of Urinary Filtration, Intermittent, Less than 6 Hours Per Day (ICD-10-PCS; 2018-01-07)
PROC: 0DJ08ZZ Inspection of Upper Intestinal Tract, Via Natural or Artificial Opening Endoscopic (ICD-10-PCS; 2018-01-10)
PROC: 5A1D70Z Performance of Urinary Filtration, Intermittent, Less than 6 Hours Per Day (ICD-10-PCS; 2018-01-10)
PROC: 0DBL8ZX Excision of Transverse Colon, Via Natural or Artificial Opening Endoscopic, Diagnostic (ICD-10-PCS; 2018-01-12)
DX: A41.9 Sepsis, unspecified organism (principal); K72.00 Acute and subacute hepatic failure without coma; J69.0 Pneumonitis due to inhalation of food and vomit; G93.1 Anoxic brain damage, not elsewhere classified; I13.2 Hypertensive heart and chronic kidney disease with heart failure and with stage 5 chronic kidney disease, or end stage renal disease; J96.21 Acute and chronic respiratory failure with hypoxia; E43 Unspecified severe protein-calorie malnutrition; K29.71 Gastritis, unspecified, with bleeding; Z99.81 Dependence on supplemental oxygen; I27.20 Pulmonary hypertension, unspecified; K62.6 Ulcer of anus and rectum; N17.9 Acute kidney failure, unspecified; R13.10 Dysphagia, unspecified; D62 Acute posthemorrhagic anemia; N18.6 End stage renal disease; E11.21 Type 2 diabetes mellitus with diabetic nephropathy; I48.92 Unspecified atrial flutter; I48.0 Paroxysmal atrial fibrillation; E87.0 Hyperosmolality and hypernatremia; J44.0 Chronic obstructive pulmonary disease with (acute) lower respiratory infection; D69.6 Thrombocytopenia, unspecified; E11.649 Type 2 diabetes mellitus with hypoglycemia without coma; I48.91 Unspecified atrial fibrillation; E66.2 Morbid (severe) obesity with alveolar hypoventilation; E11.22 Type 2 diabetes mellitus with diabetic chronic kidney disease; J96.22 Acute and chronic respiratory failure with hypercapnia; J44.1 Chronic obstructive pulmonary disease with (acute) exacerbation; E78.5 Hyperlipidemia, unspecified; I16.1 Hypertensive emergency; E83.42 Hypomagnesemia; E87.5 Hyperkalemia; E87.6 Hypokalemia; E11.65 Type 2 diabetes mellitus with hyperglycemia; G89.4 Chronic pain syndrome; E11.42 Type 2 diabetes mellitus with diabetic polyneuropathy; M54.9 Dorsalgia, unspecified; I16.0 Hypertensive urgency; E83.39 Other disorders of phosphorus metabolism; K64.8 Other hemorrhoids; S51.811A Laceration without foreign body of right forearm, initial encounter; I87.2 Venous insufficiency (chronic) (peripheral); K63.3 Ulcer of intestine; L30.4 Erythema intertrigo; D12.3 Benign neoplasm of transverse colon; I50.9 Heart failure, unspecified; W19.XXXA Unspecified fall, initial encounter; K44.9 Diaphragmatic hernia without obstruction or gangrene; Z79.4 Long term (current) use of insulin; Z79.82 Long term (current) use of aspirin; Z82.5 Family history of asthma and other chronic lower respiratory diseases; Z87.891 Personal history of nicotine dependence; Z88.0 Allergy status to penicillin; Z90.710 Acquired absence of both cervix and uterus; Z93.1 Gastrostomy status; Z98.84 Bariatric surgery status; Z99.11 Dependence on respirator [ventilator] status; Z99.2 Dependence on renal dialysis; Y93.89 Activity, other specified; Y92.89 Other specified places as the place of occurrence of the external cause; Y99.8 Other external cause status; Z68.44 Body mass index [BMI] 60.0-69.9, adult
CPT/HCPCS: 31500; 36415; 36430; 36556; 36569; 36580; 36600; 51702; 71045; 76856; 76937; 78278; 80048; 80053; 80061; 80202; 81003; 82140; 82270; 82310; 82330; 82375; 82570; 82575; 82607; 82728; 82746; 82805; 82962; 83036; 83540; 83550; 83605; 83735; 83880; 83935; 84100; 84134; 84145; 84156; 84300; 84484; 85014; 85018; 85025; 85027; 85049; 85384; 85610; 85730; 86850; 86900; 86920; 87040; 87070; 87077; 87086; 87106; 87186; 88305; 93005; 93306; 93970; 94002; 94003; 94640; 94660; 96365; 96366; 96368; 96375; 99291; A4216; A6261; A9560; C1725; C1752; C1769; C1892; C9113; J0360; J0692; J1450; J1644; J1650; J1815; J1940; J1956; J2060; J2185; J2250; J2270; J2405; J2765; J2920; J2930; J3010; J3370; J3475; J3480; J3490; J7030; J7040; J7050; J7060; J7070; J7512; J7611; J7620; J8597; P9016; P9021; A4315